=== PATIENT | female | born 1960 | race Caucasian/White ===

== ENCOUNTER 2017-03-23 09:33 | Observation (INO) | payer BC ==
[2017-03-23 10:44] LABS: #Eosinphils 0.1 thou/uL (0.0-0.7); #Lymphocytes 1.4 thou/uL (1.20-3.40); #Monocytes 0.4 thou/uL (0.11-0.59); #Neutrophils 6.4 thou/uL (1.40-6.50); %Basophils 0.6 % (0.0-1.0); %Eosinophils 1.2 % (0.0-10.0); %Lymphocytes 16.7 % (21.0-51.0); %Monocytes 5.1 % (0.0-10.0); %Neutrophils 76.5 % (42.0-75.0); Hemoglobin 12.1 g/dL (12.0-16.0); Mean Corpuscular HGB CONC 33.4 g/dL (32.0-36.0); Mean Platelet Volume 8.4 fL (7.4-10.4); Platelet Count 265 thou/uL (130-400); RBC Distribution Width 13.1 % (11.5-14.5); Red Blood Cell (RBC) Count 3.91 mill/uL (4.20-5.40); White Blood Cell (WBC) Count 8.3 thou/uL (4.8-10.8)
--- NOTE | 2017-03-23 10:45 | RAD ---
CHEST 1 VIEW: HISTORY: Near syncope. COMPARISON: Chest 2 views 11/03/16. FINDINGS: A dual-lead AICD/pacer is present. Heart size is similar. No focal airspace consolidation, pneumoth orax, or effusion. No acute osseous abnormality. There is calcific tendinosis of both rotator cuffs. IMPRESSION: 1. No acute intrathoracic abnormality. 2. Calcific tendinosis of both rotator cuffs. POS: TPC
[2017-03-23 11:14] LABS: CKMB 0.4 ng/mL (0-6.6); Troponin I 0.019 ng/mL (< 0.028)
[2017-03-23 11:40] LABS: ALT (SGPT) 22 U/L (8-55); AST (SGOT) 17 U/L (5-34); Albumin 4.3 g/dL (3.5-5.0); Alkaline Phosphatase 84 U/L (40-150); Anion Gap 14 mmol/L (10-20); BUN (Urea Nitrogen) 37 mg/dL (9.8-20.1); Bilirubin, Total 0.6 mg/dL (0.2-1.2); CK (CPK) 48 U/L (29-168); Calc. Creatinine Clearance 0 mL/min (70-130); Carbon Dioxide 28 mmol/L (22-29); Chloride 102 mmol/L (98-107); Estimated GFR-MDRD 26; Glucose 129 mg/dL (70-105); Lipase 20 U/L (8-78); Potassium 4.2 mmol/L (3.5-5.1); Protein, Total 7.3 g/dL (6.0-8.3); Sodium 140 mmol/L (136-145)
[2017-03-23] MEDS ORDERED: Aspirin 325 MG TAB ONE (13:10)
[2017-03-23 14:40] LABS: Troponin I 0.011 ng/mL (< 0.028)
--- NOTE | 2017-03-23 15:22 | PDOC.EVN ---
Attending Addendum - Attending Addendum I personally evaluated the patient and discussed the management with Dr. Cobb. I agree with the History, Examination, Assessment and Plan documented in her H& P with any addition or exceptions noted below. Patient with history of CHF due to nonischemic cardiomyopathy, CKD, HTN, HLD, and AICD placement here with pre-syncope type symptoms. She was recently diagnosed with Influenza and is undergoing treatment. On Wednesday, she had episode of dizziness, lightheaded, and weakness after position changes. Today, while seated, she had episode of flushing, sweating, lightheadedness, and pre- syncope symptoms. She endorses poor appetite related to influenza, as well as chronic diarrhea felt due to Metformin. She has recently had increase in her diuretic therapy. On exam, she appears dry. She has vertigo with lateral gaze, but CN II-XII are intact, and there are no focal motor or sensory deficits. No clonus, and FTN testing is normal, though slowed. The rest of her exam is benign. Laboratory studies suggest an AURELIO on her mild CKD, and labs are otherwise normal. She will be obs to telemetry, begin gentle fluid hydration and ensure she does not become volume overloaded. Will check orthostatics. Tele to ensure she is not having irregular rhythms. No focal neuro findings to suggest CVA as cause of her symptoms, but will ensure that her lateral gaze vertigo resolves with fluids. Will check lactoferrin to classify cause of diarrhea, hold metformin for now.
[2017-03-23 17:50] LABS: Troponin I 0.013 ng/mL (< 0.028)
[2017-03-23] MEDS ORDERED: Dextrose 50% Abboject 50 ML SYRINGE SLOW IVP PRN (18:53)
[2017-03-23] MEDS ORDERED: Ondansetron ODT 4 MG TAB PO PRN (18:53)
[2017-03-23] MEDS ORDERED: Dextrose 5% in Water 1,000 ML IV PRN (18:53)
[2017-03-23] MEDS ORDERED: Sodium Chloride 0.9% 1,000 ML IV SCH (19:00)
[2017-03-23 19:02] VITALS: BMI 32.8
--- NOTE | 2017-03-23 19:57 | HP-2 ---
DATE OF ADMISSION: 03/23/2017 CODE STATUS: FULL. PRIMARY CARE PHYSICIAN: Dr. Gottlieb. ATTENDING: Dr. Rey. RESIDENT: Dr. Cobb. SPECIALISTS: Dr. Wooten with Cardiology. CHIEF COMPLAINT: Dizziness and lightheadedness. 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 She reports that her legs were feeling wobbly and she had a little pressure in her chest and her throat was feeli ng squeezed. She also reports some numbness in her upper lip. She felt foggy throughout this whole time and reports that she felt incoherent. She also reports some dizziness that she is still feeling at this time as well as decreased energy. She had the flu recently and has been treated with Tamifl u. She has 1 pill of her Tamiflu left. She reports that she has been drinking plenty of fluids, but has had a decreased appetite. She was seen by Dr. Wooten, her secondary art teacher yesterday and he incre ased her Lasix by 1 pill. She also reports that she has had diarrhea for the last couple of months. She notes that on Wednesday, she had an episode of presyncope where she got up from bed and fell to the floor because she got really dizzy, but never actually passed out. In the ER, she was given 1 liter normal saline. PAST MEDICAL HISTORY: 1. Congestive heart failure with an ejection fraction of 40% to 45% in 01/2016. 2. Diabetes, type 2. 3. TRENT. 4. Anxiety. 5. Hyperlipidemia. 6. Hypertension. PAST SURGICAL HISTORY: AICD placement 5 years ago. ALLERGIES: CIPRO, CECLOR and CODEINE. MEDICATIONS: 1. Atorvastatin 80 mg daily. 2. Buspirone 10 mg b.i.d. 3. Carvedilol 12.5 mg b.i.d. 4. Lasix 40 mg daily, was recently increased likely to 60 mg daily, but unsure exactly what dose. 5. Entresto 49 mg/51 mg b.i.d. 6. Spironolactone 25 mg daily. 7. Symbicort 160/4.5 b.i.d. 8. Metformin 500 mg b.i.d. FAMILY HISTORY: Aunt had breast cancer and dad had CHF. SOCIAL HISTORY: Smoked 2-1/2 packs per day for 13 years, quit 31 years ago. Drinks one glass of win e per day, but lately has only been drinking about 2 glasses of wine per week due to being sick. Den ies any drug use. REVIEW OF SYSTEMS: General: Positive for fever over last week with the flu. Positive for decreased appetite. Positive for fatigue. Respiratory: Positive for cough, congestion, shortness of breath. Cardiovascular: Positive for chest pressure. Negative for edema. Gastrointestinal: Positive for nausea and diarrhea, negative for vomiting and GI bleeding. Genitourinary: Negative for dysuria, p olyuria. Skin: Negative for rashes, lesions. Musculoskeletal: Negative for pain or tenderness. N eurologic: Positive for weakness, numbness, presyncope. Negative for syncope. PHYSICAL EXAMINATION: VITAL SIGNS: Blood pressure 107/62, pulse 67, respiratory rate 18, temperature 97.7, pulse ox 98% on room air. Current weight 99.79 kilograms. GENERAL: Alert and oriented x3, in no acute distress, well-nourished, appropriately interactive. EYES: PERRLA. Extraocular muscles are intact. Bilateral horizontal nystagmus. Conjunctivae within normal limits. ENT: Nasal mucosa and oropharynx within normal limits. NECK: Supple, no lymphadenopathy. CARDIOVASCULAR: Regular rate and rhythm. No murmurs, gallops, 2+ radial and pedal pulses. RESPIRATORY: Normal effort, no retractions, clear to auscultation bilaterally. SKIN: Warm, dry. No cyanosis or lesions. ABDOMEN: Soft, tender to palpation in the right upper quadrant. Normoactive bowel sounds. No mass or distention. EXTREMITIES: No cyanosis or edema. MUSCULOSKELETAL: Structure and tone within normal limits, 5/5 muscle strength. Full range of motion . NEUROLOGICAL: No focal deficits. Sensation within normal limits. GCS 15. PSYCHIATRIC: Appropriate. LABORATORY DATA: WBC 8.3, hemoglobin 12.1, hematocrit 36.4, platelets 265. Sodium 140, potassium 4. 2, chloride 102, CO2 of 28, BUN 37, creatinine 2.01, GFR 26, glucose 129, calcium 10.0, total bilirub in 0.6, alkaline phosphatase 84, AST 17, ALT 22, lipase 20. BNP 33, CK-MB 0.4, CK 48, troponin 0.019 . EKG, normal sinus rhythm. Chest x-ray, no acute abnormalities. ASSESSMENT AND PLAN: This is a 57-year-old female, who presents with: 1. Presyncope. Differential diagnosis moderate to severe dehydration versus benign positional verti go. The patient has acute kidney injury and has recently had decreased appetite and been infected wi th the flu as well as had her Lasix dose increase, which makes a case for dehydration as number 1 cau se; however, the patient also has bilateral horizontal nystagmus causes dizziness. We will check ort hostatic vitals, NS at 150. The patient is status post 1 liter normal saline during his exam and ree valuate the patient after getting fluids. 2. Acute kidney injury on chronic kidney disease, 2. The patient has significant change from baseli ne, likely secondary to dehydration from decreased fluid intake and increased Lasix. We will treat w ith NS at 150 and make sure not to fluid overload her. We will decrease Lasix back to her regular do se and hold metformin at this time. 3. Congestive heart failure with ejection fraction of 40% to 45%. The patient appeared volume down, we will keep fluids, but watch her closely for fluid overload. We will decrease her Lasix for the d ay, likely reincrease that tomorrow or the next day. We will monitor daily weights, strict I's and O 's. Continue spironolactone and other home medications. We will consult Dr. Wooten and appreciate his recommendations. 4. Diabetes, type 2. We will hold metformin. Accu-Cheks a.c. and at bedtime. Consistent carbohydr ate diet. We will add sliding scale insulin if needed. 5. Hypertension. Continue home medications. 6. Hyperlipidemia. Continue home medications. 7. Anxiety. Continue home medications 8. Venous thromboembolism prophylaxis, sequential compression devices. DISPOSITION AND LENGTH OF HOSPITAL STAY: Obs on tele, likely less than 2 days. Symptomatic medications will be provided. History and physical exam as well as management discussed with Dr. Rey.
[2017-03-23] MEDS: Carvedilol 6.25 MG TAB PO SCH (20:08)
[2017-03-23] MEDS: busPIRone HCl 10 MG TAB PO SCH (20:08)
[2017-03-23] MEDS: Sacubitril 49 MG/Valsartan 51 MG TABLET PO SCH (20:09)
[2017-03-23] MEDS: Atorvastatin Calcium 40 MG TAB PO SCH (20:13)
[2017-03-23] MEDS ORDERED: Oseltamivir 75 MG CAP PO SCH (21:00)
[2017-03-23] MEDS: Melatonin 3 MG TAB PO PRN (21:38)
[2017-03-23] MEDS: Sodium Chloride 0.9% 1,000 ML IV SCH (21:39)
[2017-03-24] MEDS: Sodium Chloride 0.9% 1,000 ML IV SCH ×3 (04:20→21:37)
[2017-03-24 06:22] LABS: Anion Gap 13 mmol/L (10-20); BUN (Urea Nitrogen) 25 mg/dL (9.8-20.1); Calc. Creatinine Clearance 72 mL/min (70-130); Carbon Dioxide 26 mmol/L (22-29); Chloride 106 mmol/L (98-107); Estimated GFR-MDRD 44; Glucose 117 mg/dL (70-105); Potassium 3.8 mmol/L (3.5-5.1); Sodium 141 mmol/L (136-145)
--- NOTE | 2017-03-24 08:36 | PDOC.FM ---
- Subjective Subjective: Patient doing well this AM. No significant overnight events. She reports only mildly dizziness upon standing, but most of the symptoms present on admission have resolved. She denies any chest pain, shortness of breath, headache, or vision changes. Telemetry strip showed atrial paced rhythm with few PVCs. She states that the dizziness is more lightheadedness and denies a feeling of room spinning/person spinning. Her BP normally runs systolics mid 100's. - Objective MAR Reviewed: Yes Vital Signs & Weight: Vital Signs (12 hours) Temp Pulse Resp BP BP Pulse Ox 03/24/17 07:20 98.4 F 71 20 03/24/17 04:17 98.4 F 71 20 97/53 L 96 03/23/17 23:29 71 15 92/52 L 93 L Weight Weight 92.351 kg I&O: 03/23/17 03/24/17 03/25/17 06:59 06:59 06:59 Intake Total 1240 Balance 1240 Result Diagrams: 03/23/17 10:38 03/24/17 04:50 EKG Reviewed by me: Yes Radiology Reviewed by me: Yes <Radha Waterman - Last Filed: 03/24/17 08:47> - Objective Vital Signs & Weight: Vital Signs (12 hours) Temp Pulse Resp BP BP BP BP 03/24/17 11:39 97/54 L 91/54 L 110/53 L 03/24/17 09:59 109/51 L 03/24/17 07:35 97.8 F 70 16 109/51 L 03/24/17 07:20 98.4 F 71 20 03/24/17 04:17 98.4 F 71 20 97/53 L Pulse Ox 03/24/17 11:39 03/24/17 09:59 03/24/17 07:35 94 L 03/24/17 07:20 03/24/17 04:17 96 Weight Weight 92.351 kg I&O: 03/23/17 03/24/17 03/25/17 06:59 06:59 06:59 Intake Total 1240 300 Balance 1240 300 Result Diagrams: 03/23/17 10:38 03/24/17 04:50 <Elliott Rey - Last Filed: 03/24/17 12:03> Phys Exam - Physical Examination Constitutional: NAD HEENT: moist MMs Neck: supple Respiratory: no wheezing, no rales, no rhonchi, clear to auscultation bilateral Few skipped beats. Regular rate. Gastrointestinal: soft, non-tender, no distention, positive bowel sounds Musculoskeletal: no edema Neurological: moves all 4 limbs Unable to do horizontal gaze to left. Nystagmus with horizontal gaze to R. Psychiatric: A&O x 3 <Radha Waterman - Last Filed: 03/24/17 08:47> Dx/Plan (1) Pre-syncope Status: Acute (2) AURELIO (acute kidney injury) Code(s): N17.9 - ACUTE KIDNEY FAILURE, UNSPECIFIED Status: Acute (3) Influenza Code(s): J11.1 - FLU DUE TO UNIDENTIFIED INFLUENZA VIRUS W OTH RESP MANIFEST Status: Acute (4) CHF (congestive heart failure) Code(s): I50.9 - HEART FAILURE, UNSPECIFIED Status: Chronic (5) Diabetes mellitus, type II Status: Chronic (6) TRENT (obstructive sleep apnea) Code(s): G47.33 - OBSTRUCTIVE SLEEP APNEA (ADULT) (PEDIATRIC) Status: Chronic (7) Anxiety Code(s): F41.9 - ANXIETY DISORDER, UNSPECIFIED Status: Chronic - Plan Plan: 1. Presnycope - EKG shows atrial paced rhythm - Recent history of influenza s/p treatment, increase in lasix dose 2 days ago, and diarrhea - Likely 2/2 fluid losses - Curbside consulted Dr. Wooten who is aware patient is in hospital. Agreed with decreased lasix dose - AICD interrogation, although not likely cause of presyncope - Orthostatics normal - May be 2/2 vestibular system; nystagmus on exam - Recommend PT eval for gait stability - Monitor BP 2. AURELIO - Improved - Mild fluid resuscitation s/p 1L bolus and 150 ml/hr x1 bag - Cr 1.26 this AM 3. Influenza - s/p treatment with tamiflu 4. CHF s/p AICD - Saw Dr. Wooten 2 days ago. Increased dose of lasix at that time - Decreased dose of lasix during hospitalization; informed Dr. Wooten of changes - Consider AICD interrogation for potential causes of presyncope; should not be cause unless shock was administered 5. DM Type II - Hyperglycemia protocol with MSSI - Hold metformin 2/2 diarrhea - Accuchecks ACHS 6. TRENT - Not currently on CPAP 7. Anxiety - Appears well controlled - Continue home medications Dispo: Further investigate nystagmus and vestibular causes of vertigo/ lightheadedness. <Radha Waterman - Last Filed: 03/24/17 08:47> Attending Addendum - Attending Addendum I personally evaluated the patient and discussed the management with Dr. Waterman. I agree with the History, Examination, Assessment and Plan documented above with any addition or exceptions noted below. Patient continues to have some dizziness type symptoms, though improved. She continues to have these symptoms that are especially worsened with lateral gaze R or L. Continue fluids. Will perform HINTS testing and consider Neuro input if abnormal as currently unsure if symptoms are more central or peripheral in nature, though vestibular neuritis or a labyrinthitis would not be out of the question given her recent URI. <Elliott Rey - Last Filed: 03/24/17 12:03>
[2017-03-24] MEDS: Sacubitril 49 MG/Valsartan 51 MG TABLET PO SCH ×2 (09:59→20:45)
[2017-03-24] MEDS: busPIRone HCl 10 MG TAB PO SCH ×2 (09:59→20:46)
[2017-03-24] MEDS: Spironolactone 25 MG TAB PO SCH (09:59)
[2017-03-24] MEDS: Carvedilol 6.25 MG TAB PO SCH ×2 (09:59→20:46)
[2017-03-24] MEDS: Furosemide 40 MG TAB PO SCH (09:59)
[2017-03-24] MEDS ORDERED: Meclizine HCl 12.5 MG TAB PO PRN (13:48)
[2017-03-24] MEDS ORDERED: Sodium Chloride 0.9% 1,000 ML IV SCH (19:30)
[2017-03-24] MEDS: Atorvastatin Calcium 40 MG TAB PO SCH (20:46)
[2017-03-24] MEDS: Melatonin 3 MG TAB PO PRN (20:49)
[2017-03-25] MEDS: Sodium Chloride 0.9% 1,000 ML IV SCH (05:51)
--- NOTE | 2017-03-25 06:01 | CON ---
DATE OF CONSULTATION: 03/24/2017 REASON FOR CONSULTATION: Dizziness and nystagmus. REFERRING PROVIDER: Radha Waterman D.O. HISTORY OF PRESENT ILLNESS: Ms. Whyte is a pleasant 57-year-old female who has been consulted for evaluation of dizziness and nystagmus. History is obtained from the patient as well as her medical records. Apparently , the patient reports that on Wednesday, she started noticing having episodes of dizziness and vertigo type sensation. She noticed that changing position of her head would cause her to be dizzy and off balance. This episode happened once or twice on Wednesday, she was doing well until Wednesday. While she was at work in the meeting, she suddenly started feeling flushed, diaphoretic, and felt like she was going to pass out. This prompted her to present to the [facility]. She reports that on arrival here, she has had episodes where she feels dizziness and vertigo-type sensation. She notes that when she changes her position of the head, she gets very dizzy. She notes that she did have a flu last week from which she is getting over with. She also had been given Lasix recently, which she has not increased the dose as recorded by her dredge engineer. She states that she did not have any headache, diplopia, blurry vision, ptosis, dysarthria or dysphagia, numbness, tingling or weakness. PAST MEDICAL HISTORY: Significant for hypertension, type 2 diabetes, congestive heart failure, obstructive sleep apnea, anxiety, and hyperlipidemia. PAST SURGICAL HISTORY: Significant for AICD placement 5 years ago. CURRENT MEDICATIONS: Please review MAR. ALLERGIES: Include CIPRO, CECLOR and CODEINE. FAMILY HISTORY: Significant for father with CHF. SOCIAL HISTORY: She smokes 2-1/2 packs per day. She did quit smoking 13 years ago. She drinks one glass of wine on a daily basis. She denies illicit drug use. REVIEW OF SYSTEMS: As mentioned in the HPI, otherwise negative. PHYSICAL EXAMINATION: VITAL SIGNS: Blood pressure of 105/61, pulse of 76, temperature of 98.2, respirations of 16, O2 sats of 94% on room air. GENERAL: Well-developed, well-nourished female in no apparent distress. RESPIRATORY: Clear to auscultation bilaterally. CARDIOVASCULAR: Regular rate and rhythm. NEUROLOGIC: Mental status: The patient is awake, alert, oriented x3. Speech and language: Fluent speech. Cranial nerves: Pupils are 3 mm and reactive. Visual hua are intact. External muscles are intact. No nystagmus is noted. Face appears symmetric. Tongue and uvula are midline. Motor exam showed normal tone and bulk with 5/5 strength in both upper and lower extremities. Sensory: Sensation is intact and symmetric. Deep tendon reflexes, 1+ reflexes in both upper and lower extremities. Babinski: Plantar responses flexion bilaterally. Coordination intact to [id number], finger tapping bilaterally. LABORATORY DATA: Reviewed, which included CBC, CMP, troponin, CK-MB, BNP and lipase, which significant for BUN of 37, creatinine of 2.01 on admission, today the BUN is 25, creatinine of 1.26. IMAGING STUDIES: None. IMPRESSION: 1. Benign positional vertigo. 2. Dehydration. 3. Acute kidney injury, improved. Ms. Whyte is a pleasant 57-year-old female who presented with the episodes of dizziness and vertigo type sensation. Based on the description of her spells these are likely benign positional vertigo. This may have been precipitated by recent flu as well as dehydration. At this time, I will recommend continuing supportive care. If she continues to have dizziness or vertigo type sensation, then she may benefit from meclizine 25 mg q.8 hours p.r.n. along with Dizzy and Balance therapy as an outpatient. Thank you for consultation. NICOLAS
[2017-03-25 06:26] LABS: Anion Gap 11 mmol/L (10-20); BUN (Urea Nitrogen) 14 mg/dL (9.8-20.1); Calc. Creatinine Clearance 107 mL/min (70-130); Calcium 8.3 mg/dL (7.8-10.44); Carbon Dioxide 25 mmol/L (22-29); Chloride 109 mmol/L (98-107); Estimated GFR-MDRD 71; Glucose 118 mg/dL (70-105); Potassium 3.6 mmol/L (3.5-5.1); Sodium 141 mmol/L (136-145)
[2017-03-25 08:18] VITALS: BP 118/59
--- NOTE | 2017-03-25 08:42 | PDOC.FM ---
- Subjective Subjective: Patient doing well this AM. No significant overnight events. Patient still endorses vertigo, particularly when moving head or looking to the left/right. However, it does seem to be improved. She did not end up taking meclizine yesterday. Patient reports that she is otherwise feeling fine. - Objective MAR Reviewed: Yes Vital Signs & Weight: Vital Signs (12 hours) Temp Pulse Resp BP Pulse Ox 03/25/17 08:16 97.4 F L 65 16 118/59 L 96 03/25/17 04:00 98.6 F 68 20 122/55 L 94 L 03/24/17 23:52 61 20 93/51 L 96 Weight Admit Weight 92.351 kg Weight 90.446 kg I&O: 03/24/17 03/25/17 03/26/17 06:59 06:59 06:59 Intake Total 1240 2853 Balance 1240 2853 Result Diagrams: 03/23/17 10:38 03/25/17 04:50 EKG Reviewed by me: Yes Radiology Reviewed by me: No <Radha Waterman - Last Filed: 03/25/17 08:40> - Objective Vital Signs & Weight: Vital Signs (12 hours) Temp Pulse Resp BP Pulse Ox 03/25/17 10:57 67 03/25/17 08:16 97.4 F L 65 16 118/59 L 96 03/25/17 08:00 97.4 F L 67 16 03/25/17 04:00 98.6 F 68 20 122/55 L 94 L 03/24/17 23:52 61 20 93/51 L 96 Weight Admit Weight 92.351 kg Weight 90.446 kg I&O: 03/24/17 03/25/17 03/26/17 06:59 06:59 06:59 Intake Total 1240 2853 Balance 1240 2853 Result Diagrams: 03/23/17 10:38 03/25/17 04:50 <Elliott Rey - Last Filed: 03/25/17 11:06> Phys Exam - Physical Examination Constitutional: NAD HEENT: moist MMs Neck: supple Respiratory: no wheezing, no rales, no rhonchi, clear to auscultation bilateral Cardiovascular: RRR, no significant murmur Gastrointestinal: soft, positive bowel sounds Musculoskeletal: no edema Neurological: non-focal, moves all 4 limbs Difficulty with horizontal gaze due to vertigo Psychiatric: normal affect, A&O x 3 Skin: no rash, cap refill <2 seconds <Radha Waterman - Last Filed: 03/25/17 08:40> Dx/Plan (1) Pre-syncope Status: Acute (2) AURELIO (acute kidney injury) Code(s): N17.9 - ACUTE KIDNEY FAILURE, UNSPECIFIED Status: Acute (3) Influenza Code(s): J11.1 - FLU DUE TO UNIDENTIFIED INFLUENZA VIRUS W OTH RESP MANIFEST Status: Acute (4) CHF (congestive heart failure) Code(s): I50.9 - HEART FAILURE, UNSPECIFIED Status: Chronic (5) Diabetes mellitus, type II Status: Chronic (6) TRENT (obstructive sleep apnea) Code(s): G47.33 - OBSTRUCTIVE SLEEP APNEA (ADULT) (PEDIATRIC) Status: Chronic (7) Anxiety Code(s): F41.9 - ANXIETY DISORDER, UNSPECIFIED Status: Chronic - Plan Plan: 1. Presnycope - EKG shows atrial paced rhythm - Recent history of influenza s/p treatment, increase in lasix dose 2 days ago, and diarrhea - Curbside consulted Dr. Wooten who is aware patient is in hospital. Agreed with decreased lasix dose - AICD interrogation was normal - Orthostatics normal - May be 2/2 vestibular system given recent URI - PT d/c'd to walking program - Monitor BP - Neurology consulted; appreciate recs - BPP per Neuro; recommend meclizine 25 mg q8h PRN and potential PT - Follow up outpatient with neurology if symptoms persist 2. AURELIO - Improved - Cr 0.083 this AM 3. Influenza - s/p treatment with tamiflu 4. CHF s/p AICD - Saw Dr. Wooten 2 days ago. Increased dose of lasix at that time - Decreased dose of lasix during hospitalization; informed Dr. Wooten of changes - Consider AICD interrogation for potential causes of presyncope; should not be cause unless shock was administered 5. DM Type II - Hyperglycemia protocol with MSSI - Hold metformin 2/2 diarrhea, can restart with PCP as outpatient - Accuchecks ACHS 6. TRENT - Not currently on CPAP 7. Anxiety - Appears well controlled - Continue home medications 8. Benign paroxysmal positional vertigo - Neuro recommends meclizine 25 mg q8h PRN and possible PT - Can follow up with neurology as outpatient if symptoms persist Dispo: Stable. Home today. <Radha Waterman - Last Filed: 03/25/17 08:40> Attending Addendum - Attending Addendum I personally evaluated the patient and discussed the management with Dr. Waterman. I agree with the History, Examination, Assessment and Plan documented above with any addition or exceptions noted below. Patient feeling well. Neuro believes her vertigo is related to BPPV and we have started meclizine therapy. She is stable for discharge home today. <Elliott Rey - Last Filed: 03/25/17 11:06>
[2017-03-25] MEDS: Carvedilol 6.25 MG TAB PO SCH (09:08)
[2017-03-25] MEDS: Spironolactone 25 MG TAB PO SCH (09:08)
[2017-03-25] MEDS: Sacubitril 49 MG/Valsartan 51 MG TABLET PO SCH (09:08)
[2017-03-25] MEDS: Furosemide 40 MG TAB PO SCH (09:09)
[2017-03-25] MEDS: busPIRone HCl 10 MG TAB PO SCH (09:09)
[2017-03-25 10:59] VITALS: TEMP 97.4
--- NOTE | 2017-03-26 15:34 | DIS-2 ---
DATE OF ADMISSION: 03/23/2017 DATE OF DISCHARGE: 03/25/2017 RESIDENT: Dr. Radha Waterman. ADMITTING ATTENDING: Dr. Elliott Rey. DISCHARGE ATTENDING: Dr. Elliott Rey. CONSULTS: Neurology, Dr. Suzanna Hargrove. PROCEDURES: Chest x-ray, no acute intrathoracic abnormality. There were some calcific tendinosis at both rotator cuffs. PRIMARY DIAGNOSES: 1. Benign positional vertigo. 2. Dehydration. 3. Acute kidney injury, improved. SECONDARY DIAGNOSES: 1. Hypertension. 2. Type 2 diabetes mellitus. 3. Congestive heart failure. 4. Obstructive sleep apnea. 5. Anxiety. 6. Hyperlipidemia. DISCHARGE MEDICATIONS: 1. Meclizine 25 mg TID as needed. 2. Carvedilol 12.5 mg oral twice daily. 3. Spironolactone 25 mg oral daily. 4. Atorvastatin calcium 80 mg oral daily. 5. Buspirone 10 mg oral twice daily. 6. Entresto 49 mg-51 mg tablet 1 each oral twice daily. 7. Furosemide 40 mg oral twice daily. 8. Metformin 500 mg oral twice daily. 9. Symbicort 160/4.5 one puff inhalation twice daily. DISCONTINUED MEDICATIONS: None. HISTORY OF PRESENT ILLNESS AND HOSPITAL COURSE: This is a 57-year-old female with past medical history of congestive heart failure due to nonischemic cardiomyopathy, chronic kidney disease, hypertension, hyperlipidemia, and AICD placement here with presyncopal type symptoms. She has recently been diagnosed with flu and undergoing treatment. On Wednesday, she had an episode of dizziness, lightheadedness and weakness after position changes. Today, while seated, she had an episode of flushing, sweating, lightheadedness with presyncope symptoms. She did endorse poor appetite related to influenza as well as chronic diarrhea felt to be due to metformin. She has recently had increase since her diuretic therapy approximately 3 days ago, whereby Dr. Wooten doubled her Lasix dose. On examination, she did initially appear dry. She had vertigo with lateral gaze, but cranial nerves II-XII are intact and there were no focal motor or sensory deficits. There is no clonus. The rest of exam was benign. Laboratory studies suggest AURELIO and a mild CKD. Her labs are otherwise normal. The patient was admitted to telemetry for observation and gentle fluid hydration due to her congestive heart failure. The goal is to not to get her fluid overloaded. It was presumed that patient's symptoms were likely secondary to dehydration due to recent flu-like illness, poor appetite and rather chronic diarrhea. Orthostatics were negative. She was placed on telemetry to ensure there is no irregular heart rhythm causing her presyncope type symptoms and no neuro findings to suggest the CVA as a cause of her symptoms. Lactoferrin was checked due to her diarrhea, which was negative. The metformin was held as a potential cause of the chronic diarrhea as well. Neurology was consulted as a HINTS exam was performed and was found to be abnormal. The patient was diagnosed with benign positional vertigo by neurology. Neurology was not concerned for a posterior cerebellar infarct and recommended that the patient be started on meclizine 25 mg TID for BPPV and consider PT outpatient. The above findings were discussed with the patient and she was on board with trying the Meclizine as well as outpatient physical therapy if her symptoms persist to assure resolution and improvement in her symptoms. If her symptoms do persist, outpatient PT may be beneficial. Additionally, she might benefit from Evette's maneuver. The patient was understanding of the necessity for close followup. DISPOSITION: Stable. DISCHARGE INSTRUCTIONS: 1. Location: Home. 2. Diet: Consistent carbohydrate and heart healthy. 3. Activity: As tolerated 4. Followup: The patient is to follow up within 7 days of discharge her primary care physician, to ensure resolution/improvement in her symptoms. [facility]
--- NOTE | 2017-03-27 12:00 | EKG ---
Test Reason : Blood Pressure : / mmHG Vent. Rate : 071 BPM Atrial Rate : 071 BPM P-R Int : 194 ms QRS Dur : 100 ms QT Int : 434 ms P-R-T Axes : 038 -15 040 degrees QTc Int : 471 ms Normal sinus rhythm Low voltage QRS Borderline ECG Confirmed by SELWYN WHITT, NIKITA ([id number]), avid editor IMMANUEL DAY ([id number]) on 03/27/2017 11:59:58 AM Referred By: Confirmed By:NIKITA SAMANO MD
== END 2017-03-25 11:48 | disposition home or self-care (01) ==
LOC: ERS 09:33 → ERHOLD 12:40 → 2SW 18:41
PROVIDERS: ADMIT Student in an Organized Health Care Education/Training Program; ATTEND Student in an Organized Health Care Education/Training Program
DX: H81.10 Benign paroxysmal vertigo, unspecified ear (principal); E86.0 Dehydration; F41.9 Anxiety disorder, unspecified; G47.33 Obstructive sleep apnea (adult) (pediatric); I13.0 Hypertensive heart and chronic kidney disease with heart failure and stage 1 through stage 4 chronic kidney disease, or unspecified chronic kidney disease; E11.22 Type 2 diabetes mellitus with diabetic chronic kidney disease; N18.9 Chronic kidney disease, unspecified; I50.9 Heart failure, unspecified; N17.9 Acute kidney failure, unspecified; E78.5 Hyperlipidemia, unspecified; I42.8 Other cardiomyopathies; J11.1 Influenza due to unidentified influenza virus with other respiratory manifestations; Z87.891 Personal history of nicotine dependence; Z79.84 Long term (current) use of oral hypoglycemic drugs; Z79.51 Long term (current) use of inhaled steroids; Z79.899 Other long term (current) drug therapy; Z88.8 Allergy status to other drugs, medicaments and biological substances; Z88.1 Allergy status to other antibiotic agents; Z88.5 Allergy status to narcotic agent; Z95.810 Presence of automatic (implantable) cardiac defibrillator
CPT/HCPCS: 36415; 36416; 71045; 80048; 80053; 82550; 82553; 83630; 83690; 83880; 84484; 85025; 93005; 96360; 96361; A4216; G0378; G8978-GP-CK; G8979-GP-CK; G8980-GP-CK

== ENCOUNTER 2017-04-01 13:59 | Observation (INO) | payer BC ==
[2017-04-01 14:26] LABS: #Basophils 0.1 thou/uL (0.0-0.2); #Eosinphils 0.2 thou/uL (0.0-0.7); #Monocytes 0.8 thou/uL (0.11-0.59); #Neutrophils 10.4 thou/uL (1.40-6.50); %Basophils 0.5 % (0.0-1.0); %Eosinophils 1.7 % (0.0-10.0); %Lymphocytes 14.8 % (21.0-51.0); %Neutrophils 76.9 % (42.0-75.0); Hemoglobin 12.5 g/dL (12.0-16.0); Mean Corpuscular HGB CONC 32.9 g/dL (32.0-36.0); Mean Corpuscular Hemoglobin 30.7 pg (27.0-31.0); Mean Corpuscular Volume 93.3 fl (81.0-99.0); Mean Platelet Volume 8.9 fL (7.4-10.4); Platelet Count 357 thou/uL (130-400); RBC Distribution Width 12.8 % (11.5-14.5); Red Blood Cell (RBC) Count 4.06 mill/uL (4.20-5.40); White Blood Cell (WBC) Count 13.5 thou/uL (4.8-10.8)
[2017-04-01 14:49] LABS: ALT (SGPT) 16 U/L (8-55); AST (SGOT) 12 U/L (5-34); Albumin 4.4 g/dL (3.5-5.0); Alkaline Phosphatase 101 U/L (40-150); Anion Gap 15 mmol/L (10-20); BUN (Urea Nitrogen) 35 mg/dL (9.8-20.1); Bilirubin, Total 0.6 mg/dL (0.2-1.2); CK (CPK) 41 U/L (29-168); Calc. Creatinine Clearance 0 mL/min (70-130); Calcium 10.2 mg/dL (7.8-10.44); Carbon Dioxide 27 mmol/L (22-29); Chloride 103 mmol/L (98-107); Estimated GFR-MDRD 37; Globulin 3.2 g/dL (2.4-3.5); Glucose 126 mg/dL (70-105); Potassium 4.4 mmol/L (3.5-5.1); Protein, Total 7.6 g/dL (6.0-8.3); Sodium 141 mmol/L (136-145)
[2017-04-01 14:54] LABS: CKMB 0.5 ng/mL (0-6.6); Troponin I Less than 0.010 ng/mL (< 0.028)
--- NOTE | 2017-04-01 15:18 | RAD ---
PORTABLE CHEST: Date: 04/01/17 Time: 1431 hours HISTORY: Chest pain. FINDINGS: Comparison made with exam of 03/23/17. The heart size is enlarged. Left-sided AICD remains in place. Lungs are well expanded without conflue nt areas of consolidation, pneumothorax, josie pulmonary edema, or pleural effusions. IMPRESSION: No acute process. POS: [facility]
[2017-04-01] MEDS ORDERED: Acetaminophen 500 MG TAB ONE (16:00)
[2017-04-01] MEDS ORDERED: Acetaminophen 325 MG TAB PO PRN ×2 (17:07→17:19)
[2017-04-01] MEDS ORDERED: Ondansetron ODT 4 MG TAB PO PRN (17:07)
[2017-04-01] MEDS ORDERED: Ondansetron ODT 4 MG TAB SL PRN (17:19)
[2017-04-01] MEDS ORDERED: Sodium Chloride 0.9% 1,000 ML IV SCH (17:19)
[2017-04-01] MEDS ORDERED: Ondansetron HCl/PF 4 MG/2 ML Vial IVP PRN (17:19)
[2017-04-01 17:27] VITALS: BMI 32.8
[2017-04-01] MEDS ORDERED: Dextrose 50% Abboject 50 ML SYRINGE SLOW IVP PRN ×2 (17:30→21:15)
[2017-04-01] MEDS ORDERED: HumaLOG 300 UNITS/3 ML VIAL SC PRN ×2 (17:30→21:15)
[2017-04-01] MEDS ORDERED: Dextrose 5% in Water 1,000 ML IV PRN ×2 (17:30→21:15)
[2017-04-01] MEDS ORDERED: Meclizine HCl 25 MG TAB PO PRN (17:34)
[2017-04-01 17:59] LABS: Troponin I Less than 0.010 ng/mL (< 0.028)
[2017-04-01] MEDS: Sodium Chloride 0.9% 1,000 ML IV SCH (18:17)
[2017-04-01] MEDS ORDERED: Melatonin 3 MG TAB PO PRN (19:19)
[2017-04-01] MEDS: Mometasone/Formoterol 120 PUFF INHALER INH SCH (19:26)
[2017-04-01] MEDS: busPIRone HCl 10 MG TAB PO SCH (20:38)
[2017-04-01] MEDS: Sacubitril 49 MG/Valsartan 51 MG TABLET PO SCH (20:39)
[2017-04-01] MEDS ORDERED: Atorvastatin Calcium 40 MG TAB PO SCH (21:00)
[2017-04-01] MEDS ORDERED: Carvedilol 6.25 MG TAB PO SCH (21:00)
[2017-04-01 21:16] LABS: Troponin I Less than 0.010 ng/mL (< 0.028)
--- NOTE | 2017-04-02 03:54 | HP-2 ---
CODE STATUS: FULL. PRIMARY CARE PHYSICIAN: Radha Gottlieb DO ATTENDING PHYSICIAN: Bradley Roger MD RESIDENT: Zehra Nix DO HISTORIAN: Patient. SPECIALIST: Napoleon Wooten MD, Cardiology. CHIEF COMPLAINT: Shortness of breath and chest pain. HISTORY OF PRESENT ILLNESS: A 57-year-old female with past medical history of congestive heart failure, type 2 diabetes, hypertension, hyperlipidemia, and smoking history presents with chest pain from the clinic. About a week and half ago, the patient was hospitalized for a vertigo and dehydration after a flu -like illness. She reports since that time, she has been feeling generally weak and without energy. Due to this, she has been trying to get in with her technician semiconductor development, Dr. Wooten, but has not been able to, so went to PCP today. In office, she reported onset of muscle cramp-like chest pain that happened this morning and has not gone away. The pain does not radiate. Pain is not associated with nausea, vomiting, or diaphoresis. The pain is associated with shortness of breath. Since prior to her last admission, she has had poor appetite and a 20-pound weight loss. She reports no vomiting or diarrhea. No other recent illness. On her last admission, she was diagnosed with BPPV and sent home with meclizine. She has not yet picked that up, but does report her BPPV is improved, although not completely resolved. Also, the patient and the patient's reported that the patient has been getting low blood pressure readings at home such as 90s/60s. In the ER, she was given aspirin 324 mg, 500 mL bolus of normal saline, and Tylenol 1 gram. PAST MEDICAL HISTORY: 1. Congestive heart failure, last ejection fraction of 40%-45%. 2. Type 2 diabetes. 3. Anxiety. 4. Hyperlipidemia. 5. Hypertension. PAST SURGICAL HISTORY: AICD placement 5 years ago. ALLERGIES: CIPRO, CECLOR, and CODEINE. MEDICATIONS: 1. Meclizine 25 mg t.i.d. p.r.n. 2. Coreg 12.5 mg b.i.d. 3. Spironolactone 25 mg daily. 4. Atorvastatin 80 mg daily. 5. BuSpar 10 mg b.i.d. 6. Entresto 49/51 mg b.i.d. 7. Lasix 40 mg b.i.d. 8. Metformin 500 mg b.i.d. 9. Symbicort 160/4.5 mg 1 puff b.i.d. FAMILY HISTORY: Noncontributory. SOCIAL HISTORY: The patient recently quit smoking about 1 month ago after a 30- pack-year history. The patient admits to smoking 2-1/2 packs per day for 13 years. The patient is and lives at home with . REVIEW OF SYSTEMS: A 12-point review of systems was performed and found to be positive only for heat intolerance in addition those mentioned in the HPI. All other systems are negative. PHYSICAL EXAMINATION: VITAL SIGNS: Blood pressure 128/88, pulse 73, respiratory rate 18, T-max 97.4, pulse ox 96% on room air, weight 90.26 kilos. GENERAL: The patient is alert and oriented x4, in no acute distress. HEENT: Eyes, PERRLA. EOMI. Oropharynx within normal limits. NECK: Supple without lymphadenopathy or thyromegaly. CARDIOVASCULAR: Regular rate and rhythm. No murmurs. RESPIRATORY: Normal effort. No retractions. Clear to auscultation bilaterally. SKIN: Warm and dry. MUSCULOSKELETAL: Structure within normal limits. Tone within normal limits. NEUROLOGIC: GCS of 15. PSYCHIATRIC: Appropriate. LABORATORY DATA: CBC showed 13.5, 12.5, 37.9, and 367 with 26.4% neutrophils. BMP: Sodium 141, potassium 4.4, chloride 103, CO2 of 22, BUN 55, creatinine 1.46, glucose 126, calcium 10.2, total protein 7.6, albumin 4.4, AST 12, ALT 16 , alkaline phosphatase 101, total bilirubin 0.6 with a BNP of 26.8. EKG shows normal sinus rhythm with a left AICD in place. Chest x-ray: AICD in place. No acute findings. ASSESSMENT AND PLAN: 1. Acute kidney injury likely secondary to dehydration. We will give normal saline at 100 after receiving 500 mL bolus in ED. The patient's pressures have already normalized and she feels much better. We will check BMP in the morning. We will hold the Lasix for now. 2. Atypical chest pain with HEART score of 3. We will get a stress in the morning, trend the troponin, and consider cardiac consult for a possible echo. 3. Type 2 diabetes. We will hold metformin for now with decreasing kidney function. We will provide before meals and at bedtime Accu-Cheks and mild sliding scale insulin. 3. Hypotension. Orthostatics were performed and were found to be negative. The patient is usually well controlled on home medications. We will continue those in the hospital. 4. Congestive heart failure. We will consult Dr. Wooten as described above. 5. Anxiety. We will continue her home medications. 6. Hyperlipidemia. We will continue atorvastatin. DISPOSITION AND LENGTH OF HOSPITAL STAY: 2 days. Symptomatic meds will be provided. History and physical exam as well as management were discussed with Dr. Roger. NICOLAS
[2017-04-02] MEDS: Sodium Chloride 0.9% 1,000 ML IV SCH ×2 (03:59→16:09)
[2017-04-02 04:20] LABS: #Basophils 0.1 thou/uL (0.0-0.2); #Eosinphils 0.2 thou/uL (0.0-0.7); #Lymphocytes 1.9 thou/uL (1.20-3.40); #Monocytes 0.6 thou/uL (0.11-0.59); #Neutrophils 4.9 thou/uL (1.40-6.50); %Basophils 1.2 % (0.0-1.0); %Eosinophils 2.8 % (0.0-10.0); %Lymphocytes 24.9 % (21.0-51.0); %Monocytes 7.8 % (0.0-10.0); %Neutrophils 63.3 % (42.0-75.0); Mean Corpuscular HGB CONC 33.7 g/dL (32.0-36.0); Mean Corpuscular Hemoglobin 31.7 pg (27.0-31.0); Mean Corpuscular Volume 94.1 fl (81.0-99.0); Mean Platelet Volume 8.8 fL (7.4-10.4); Platelet Count 267 thou/uL (130-400); RBC Distribution Width 12.8 % (11.5-14.5); Red Blood Cell (RBC) Count 3.48 mill/uL (4.20-5.40); White Blood Cell (WBC) Count 7.7 thou/uL (4.8-10.8)
[2017-04-02 04:32] LABS: Anion Gap 12 mmol/L (10-20); BUN (Urea Nitrogen) 29 mg/dL (9.8-20.1); Calc. Creatinine Clearance 73 mL/min (70-130); Calcium 9.2 mg/dL (7.8-10.44); Carbon Dioxide 26 mmol/L (22-29); Cardiac Risk 4.6 (Less than 4.5); Chloride 108 mmol/L (98-107); Cholesterol 137 mg/dl (< 200 Desired); Estimated GFR-MDRD 45; Glucose 121 mg/dL (70-105); HDL Cholesterol 30 mg/dL (>60 Neg Risk); LDL Cholesterol, Calculated 73 mg/dL; Potassium 4.1 mmol/L (3.5-5.1); Sodium 142 mmol/L (136-145); Triglycerides 168 mg/dL (Less than 150)
[2017-04-02] MEDS: Mometasone/Formoterol 120 PUFF INHALER INH SCH (06:40)
--- NOTE | 2017-04-02 07:53 | PDOC.FM ---
- Subjective Subjective: Patient doing well this AM. She states that her chest pain is better. It reportedly came on suddenly yesterday and persisted for several hours. She has not experienced chest pain like that in the past. She denied any shortness of breath or diaphoresis. She states that over the last few weeks she "just hasn't felt well." She was recently hospitalized with dizziness. An extensive evaluation was done at that time, to include a neurology consult. Patient was diagnosed with BPPV and advised to take meclizine and follow with PT if persistent. She was also advised to decrease lasix dose to once a day, although she has not been following those recommendations. - Objective MAR Reviewed: Yes Vital Signs & Weight: Vital Signs (12 hours) Temp Pulse Resp BP BP Pulse Ox 04/02/17 06:40 72 12 04/02/17 04:01 98.5 F 78 18 107/56 L 95 04/01/17 19:57 98.4 F 67 18 105/53 L 96 Weight Weight 92.079 kg I&O: 04/01/17 04/02/17 04/03/17 06:59 06:59 06:59 Intake Total 1203 Output Total 2 Balance 1201 Result Diagrams: 04/02/17 03:59 04/02/17 03:59 EKG Reviewed by me: Yes Radiology Reviewed by me: Yes Phys Exam - Physical Examination Constitutional: NAD HEENT: moist MMs Neck: supple Respiratory: no wheezing, clear to auscultation bilateral Cardiovascular: RRR, no significant murmur Gastrointestinal: soft, non-tender, positive bowel sounds Musculoskeletal: no edema, pulses present Neurological: non-focal, moves all 4 limbs Psychiatric: A&O x 3 Skin: no rash, cap refill <2 seconds Dx/Plan (1) Atypical chest pain Code(s): R07.89 - OTHER CHEST PAIN Status: Acute (2) BPPV (benign paroxysmal positional vertigo) Code(s): H81.10 - BENIGN PAROXYSMAL VERTIGO, UNSPECIFIED EAR Status: Acute (3) HLD (hyperlipidemia) Code(s): E78.5 - HYPERLIPIDEMIA, UNSPECIFIED Status: Chronic (4) HTN (hypertension) Code(s): I10 - ESSENTIAL (PRIMARY) HYPERTENSION Status: Chronic Qualifiers: Hypertension type: essential hypertension Qualified Code(s): I10 - Essential (primary) hypertension (5) Anxiety Code(s): F41.9 - ANXIETY DISORDER, UNSPECIFIED Status: Chronic (6) CHF (congestive heart failure) Code(s): I50.9 - HEART FAILURE, UNSPECIFIED Status: Chronic Qualifiers: Congestive heart failure type: systolic (7) Diabetes mellitus, type II Status: Chronic (8) TRENT (obstructive sleep apnea) Code(s): G47.33 - OBSTRUCTIVE SLEEP APNEA (ADULT) (PEDIATRIC) Status: Chronic - Plan Plan: 1. Atypical chest pain - Troponin neg x3 - EKG normal sinus rhythm - Cardiolite stress test negative - Monitor on telemetry 2. BPPV - Recently diagnosed during last hospitalization - Patient evaluated by neurologist at that time - Recommended decreased dose of lasix and treatment with meclizine PRN - Recommended outpatient PT if no improvement in symptoms 3. HTN - Continue home medications - BP this AM 107/56 4. HLD - Continue home medications 5. sCHF with EF 45% - Does not appear to be in acute exacerbation currently - Continue home medications - Strict I&O's - 1500 mL fluid restriction 6. AURELIO - Patient on mild fluids at 100 ml/hr as to not fluid overload d/t CHF - Improved Cr this AM to 1.23 from 1.4 7. Diabetes mellitus type II - Continue home medications - ACHS accuchecks - Mild SSI 8. Anxiety - Continue home medications 9. Multifocal PVC's - Evaluate if new in onset - Consider consulting cards for opinion Dispo: Stable. D/C home today.
[2017-04-02] MEDS ORDERED: metFORMIN 500 MG TAB PO SCH (08:00)
[2017-04-02] MEDS ORDERED: Spironolactone 25 MG TAB PO SCH (09:00)
[2017-04-02] MEDS ORDERED: Regadenoson 0.4 MG/5 ML SYRINGE ONE (09:45)
[2017-04-02] MEDS: busPIRone HCl 10 MG TAB PO SCH (13:25)
[2017-04-02] MEDS: Sacubitril 49 MG/Valsartan 51 MG TABLET PO SCH (13:26)
--- NOTE | 2017-04-02 13:48 | NM ---
MYOCARDIAL PERFUSION SCAN: The patient was given 10 mCi of Technetium sestamibi for resting imaging and 27 mCi for stress imagin g. HISTORY: Chest pain. The left ventricle was imaged with SPECT imaging. CT attenuation performed. FINDINGS: There is normal activity throughout the left ventricle on both stress and rest images. No evidence o f reversible ischemia. Ejection fraction is slightly decreased mild global hypokinesis. Ejection fraction was recorded at 4 5%. IMPRESSION: 1. No evidence of reversible ischemia. 2. Mild global hypokinesis which mildly decreased ejection fraction. POS: [facility]
[2017-04-02 15:55] VITALS: BP 99/52; TEMP 98.2
[2017-04-02 16:41] LABS: Anion Gap 10 mmol/L (10-20); BUN (Urea Nitrogen) 20 mg/dL (9.8-20.1); Calc. Creatinine Clearance 82 mL/min (70-130); Calcium 9.2 mg/dL (7.8-10.44); Carbon Dioxide 28 mmol/L (22-29); Chloride 107 mmol/L (98-107); Estimated GFR-MDRD 51; Glucose 168 mg/dL (70-105); Potassium 3.9 mmol/L (3.5-5.1); Sodium 141 mmol/L (136-145)
--- NOTE | 2017-04-05 13:03 | DIS-2 ---
DATE OF ADMISSION: 04/01/2017 DATE OF DISCHARGE: 04/02/2017 ADMITTING ATTENDING: Bradley Roger M.D. DISCHARGE ATTENDING: Hasmukh Melo M.D. RESIDENT: Radha Waterman DO PROCEDURES: 1. Chest x-ray: No acute process. 2. Myocardial perfusion scan, no evidence of reversible ischemia. Ejection fraction was recorded at 45%. There was mild global hypokinesis, which mildly decreased ejection fraction. CONSULTATIONS: None. PRIMARY DIAGNOSES: 1. Atypical chest pain. 2. Benign paroxysmal positional vertigo. SECONDARY DIAGNOSES: 1. Hyperlipidemia. 2. Hypertension. 3. Anxiety. 4. Congestive heart failure with ejection fraction of 45%. 5. Diabetes mellitus type 2. 6. Obstructive sleep apnea. DISCHARGE MEDICATIONS: 1. Furosemide 40 mg oral daily. 2. Carvedilol 12.5 mg oral twice daily. 3. Spironolactone 25 mg oral daily. 4. Atorvastatin 80 mg oral daily. 5. Buspirone 10 mg oral twice daily. 6. Entresto 49-51 mg tablet 1 each oral twice daily. 7. Metformin 500 mg twice daily. 8. Symbicort 160/4.5 one puff inhalation twice daily. 9. Meclizine 25 mg oral 3 times daily as needed. DISCONTINUED MEDICATION: Of note, furosemide 40 mg twice daily was changed to 40 mg once daily due t o concerns for dehydration and dizziness. HISTORY OF PRESENT ILLNESS AND HOSPITAL COURSE: This is a 57-year-old female with past medical histo ry of congestive heart failure, type 2 diabetes mellitus, hypertension, hyperlipidemia, and smoking h istory who presents with chest pain from clinic about a week and a half ago. The patient was [facility] for vertigo, dehydration after a flu-like illness. She reported that since that time she has b een feeling generally weak and without energy. Due to that, she has been trying to get in touch with her billing coordinator, Dr. Wooten, but has been unable to do so, so she went to see her PCP today. In the office, she reported onset of muscle cramp pressure-like chest pain that happened this morning an d has not gone away. The pain did not radiated. It was not associated with nausea, vomiting, or vinh phoresis. The pain is associated with shortness of breath however. Since her last admission, she enciso s had poor appetite. She reports no vomiting or diarrhea. No other recent illness. On her last adm ission, she was diagnosed with BPPV and sent home with meclizine. She has not yet picked that up, bu susan does report her BPPV is improved, although not completely resolved. Also, the patient and the ninoska ent's reported that she has been getting low blood pressure readings at home such as 90s/60s. In the emergency room, she was given aspirin 324 mg, 500 mL bolus of normal saline, and Tylenol 1 g nancy. The patient remained stable throughout the course of her hospital stay. A nuclear stress test was pe rformed to evaluate for myocardial ischemia. There was no evidence of reversible ischemia noted on t he scan. There was some global hypokinesis noted with mildly decreased ejection fraction of 45%, whi ch is consistent with the patient's history of congestive heart failure. The chest pain had resolved by the time the patient was reevaluated the next day. The patient did note that this felt more like a muscle spasm. It is uncertain either not this was related to dehydration as patient was noted to have a BUN of 29 and creatinine of 1.23 when she did improve with fluid resuscitation. The patient w as advised at last hospitalization to decrease her Lasix from 40 mg b.i.d. to Lasix 40 mg daily. Shwetha fonseca was discussed with Dr. Wooten in passing and he agreed with this medication changes. The patient was having trouble maintaining blood pressure and was becoming dizzy. This was discussed again with the patient and she was in understanding that she was only to be taking 40 mg a day as opposed to 40 mg twice a day. Of note, patient was noted to have multifocal PVCs on telemetry. On reevaluation of her telemetry st rips from prior admission, it was noted that she was having at least bigeminal PVCs at that time. Dr Jaky Galvin was consulted in passing for an opinion regarding his multifocal PVCs with a history of AICD and congestive heart failure diagnosis. AICD was interrogated at her last visit and thus it was dis cussed that various findings were negative on AICD interrogation likely this is nothing to be too con cerned with at this time. Upon evaluation of AICD interrogation, it is noted that everything was nor mal at that time and thus patient was advised to continue following closely with her billing coordinator as an outpatient. The patient's symptoms had improved prior to discharge from the hospital, although sh helen did claim to be weak. She did request a several day work excuse as she had also had done on the pr ior admission. It was explained that we can only account for her days here in the hospital and to co ntact Dr. Wooten, her primary care physician regarding the other days. DISPOSITION: Stable. DISCHARGE INSTRUCTIONS: 1. Location: Home. 2. Diet: Heart healthy diet, consistent carbohydrate diet. 3. Activity: No restrictions. 4. Followup: Patient is to follow up with [facility] within 7 days of discharge to en sure resolution/improvement in symptoms. This was discussed with the patient and she was in understa nding of the plan and agreeable.
== END 2017-04-02 17:06 | disposition home or self-care (01) ==
LOC: ERS 13:59 → 2SW 16:15
PROVIDERS: ADMIT Family Medicine; ATTEND Family Medicine
DX: R07.89 Other chest pain (principal); H81.10 Benign paroxysmal vertigo, unspecified ear; I11.0 Hypertensive heart disease with heart failure; I50.9 Heart failure, unspecified; E78.5 Hyperlipidemia, unspecified; E11.9 Type 2 diabetes mellitus without complications; G47.33 Obstructive sleep apnea (adult) (pediatric); F41.9 Anxiety disorder, unspecified; F17.200 Nicotine dependence, unspecified, uncomplicated; Z88.5 Allergy status to narcotic agent; Z88.1 Allergy status to other antibiotic agents; Z88.8 Allergy status to other drugs, medicaments and biological substances; Z79.84 Long term (current) use of oral hypoglycemic drugs; Z79.899 Other long term (current) drug therapy; Z95.810 Presence of automatic (implantable) cardiac defibrillator
CPT/HCPCS: 36415; 36416; 71045; 78452; 80048; 80053; 80061; 82553; 83880; 84484; 85025; 93005; 93017; 94760; 96360; 96361; A9500; G0378; J2785

== ENCOUNTER 2017-05-22 11:16 | Emergency (ER) | payer BC ==
[2017-05-22 12:15] LABS: #Basophils 0.1 thou/uL (0.0-0.2); #Eosinphils 0.2 thou/uL (0.0-0.7); #Lymphocytes 1.9 thou/uL (1.20-3.40); #Monocytes 0.5 thou/uL (0.11-0.59); %Basophils 0.8 % (0.0-1.0); %Lymphocytes 19.5 % (21.0-51.0); %Monocytes 5.3 % (0.0-10.0); %Neutrophils 72.3 % (42.0-75.0); Hemoglobin 12.7 g/dL (12.0-16.0); Mean Corpuscular HGB CONC 33.4 g/dL (32.0-36.0); Mean Corpuscular Hemoglobin 30.4 pg (27.0-31.0); Mean Platelet Volume 8.3 fL (7.4-10.4); Platelet Count 312 thou/uL (130-400); Red Blood Cell (RBC) Count 4.18 mill/uL (4.20-5.40); White Blood Cell (WBC) Count 9.7 thou/uL (4.8-10.8)
[2017-05-22 12:25] LABS: Bilirubin Negative (Negative); Blood, Urine Negative (Negative); Clarity CLEAR (Clear); Glucose, Urine (Dipstick) Negative (Negative); Leukocyte Negative (Negative); Nitrite Negative (Negative); Protein, Urine (Dipstick) Negative (Neg-Trace); Specific Gravity, Urine 1.015 (1.002-1.036); Urobilinogen 0.2 mg/dL (0.2-1.0); pH, Urine 5.5 (5.0-9.0)
[2017-05-22 12:40] LABS: ALT (SGPT) 18 U/L (8-55); AST (SGOT) 15 U/L (5-34); Albumin 4.3 g/dL (3.5-5.0); Alkaline Phosphatase 99 U/L (40-150); Anion Gap 16 mmol/L (10-20); BUN (Urea Nitrogen) 18 mg/dL (9.8-20.1); Bilirubin, Total 0.6 mg/dL (0.2-1.2); Calc. Creatinine Clearance 0 mL/min (70-130); Calcium 9.6 mg/dL (7.8-10.44); Carbon Dioxide 24 mmol/L (22-29); Chloride 104 mmol/L (98-107); Estimated GFR-MDRD 59; Glucose 118 mg/dL (70-105); Potassium 4.3 mmol/L (3.5-5.1); Protein, Total 7.3 g/dL (6.0-8.3); Sodium 140 mmol/L (136-145)
[2017-05-22 12:45] LABS: CKMB 0.5 ng/mL (0-6.6); Troponin I Less than 0.010 ng/mL (< 0.028)
[2017-05-22] MEDS ORDERED: Ibuprofen 200 MG TAB ONE (13:05)
[2017-05-22] MEDS ORDERED: Bacitracin Zinc 1 Packet ONE (13:05)
--- NOTE | 2017-05-22 14:37 | RAD ---
RIGHT ANKLE 3 VIEWS: INDICATION: Pain, injury. COMPARISON: 11/03/11. FINDINGS: Mortise is intact. There is no fracture or dislocation of the right ankle seen. Prior soft tissue s welling has resolved. Calcaneal enthesophyte formation is again demonstrated. IMPRESSION: No acute osseous abnormality of the right ankle. POS: [facility]
--- NOTE | 2017-05-22 14:38 | RAD ---
THREE VIEWS RIGHT FOOT: INDICATION: Right foot injury, pain. FINDINGS: Lisfranc joint is maintained. There is no fracture or dislocation identified. Calcaneal enthesophyt e is seen. IMPRESSION: No acute fracture or right foot. POS: [facility]
== END 2017-05-22 13:33 | disposition home or self-care (01) ==
LOC: ERS 11:16
DX: S93.401A Sprain of unspecified ligament of right ankle, initial encounter (principal); E11.9 Type 2 diabetes mellitus without complications; I11.0 Hypertensive heart disease with heart failure; I50.9 Heart failure, unspecified; E78.5 Hyperlipidemia, unspecified; Z87.891 Personal history of nicotine dependence; Z79.84 Long term (current) use of oral hypoglycemic drugs; Z79.899 Other long term (current) drug therapy; W01.0XXA Fall on same level from slipping, tripping and stumbling without subsequent striking against object, initial encounter
CPT/HCPCS: 36415; 80053; 81003; 82553; 84484; 85025

== ENCOUNTER 2017-06-04 12:07 | Outpatient (CLI) | payer BC | END 2017-06-04 12:08 | disposition home or self-care (01) | LOC: BICRAD 12:07 | PROVIDERS: ATTEND Family Medicine | DX: M47.22 Other spondylosis with radiculopathy, cervical region (principal) | CPT/HCPCS: 71046; 72052 ==

== ENCOUNTER 2017-08-04 12:02 | Emergency (ER) | payer BC ==
[2017-08-04 12:36] LABS: #Basophils 0.1 thou/uL (0.0-0.2); #Eosinphils 0.2 thou/uL (0.0-0.7); #Lymphocytes 1.5 thou/uL (1.20-3.40); #Monocytes 0.6 thou/uL (0.11-0.59); #Neutrophils 8.4 thou/uL (1.40-6.50); %Basophils 0.5 % (0.0-1.0); %Eosinophils 1.6 % (0.0-10.0); %Lymphocytes 14.3 % (21.0-51.0); %Monocytes 5.3 % (0.0-10.0); %Neutrophils 78.3 % (42.0-75.0); Mean Corpuscular HGB CONC 33.4 g/dL (32.0-36.0); Mean Corpuscular Hemoglobin 30.1 pg (27.0-31.0); Mean Corpuscular Volume 89.9 fl (81.0-99.0); Mean Platelet Volume 8.1 fL (7.4-10.4); Platelet Count 307 thou/uL (130-400); RBC Distribution Width 13.4 % (11.5-14.5); Red Blood Cell (RBC) Count 4.31 mill/uL (4.20-5.40); White Blood Cell (WBC) Count 10.7 thou/uL (4.8-10.8)
[2017-08-04 12:57] LABS: ALT (SGPT) 15 U/L (8-55); AST (SGOT) 13 U/L (5-34); Albumin 4.4 g/dL (3.5-5.0); Alkaline Phosphatase 96 U/L (40-150); Anion Gap 16 mmol/L (10-20); BUN (Urea Nitrogen) 36 mg/dL (9.8-20.1); Bilirubin, Total 0.4 mg/dL (0.2-1.2); CK (CPK) 46 U/L (29-168); Calc. Creatinine Clearance 0 mL/min (70-130); Carbon Dioxide 19 mmol/L (22-29); Chloride 107 mmol/L (98-107); Estimated GFR-MDRD 36; Globulin 3.3 g/dL (2.4-3.5); Glucose 148 mg/dL (70-105); Potassium 5.1 mmol/L (3.5-5.1); Protein, Total 7.7 g/dL (6.0-8.3); Sodium 137 mmol/L (136-145)
[2017-08-04 13:01] LABS: CKMB 0.7 ng/mL (0-6.6); Troponin I Less than 0.010 ng/mL (< 0.028)
[2017-08-04 13:08] LABS: Bilirubin Negative (Negative); Blood, Urine Negative (Negative); Clarity CLEAR (Clear); Glucose, Urine (Dipstick) Negative (Negative); Leukocyte Negative (Negative); Nitrite Negative (Negative); Protein, Urine (Dipstick) Negative (Neg-Trace); Specific Gravity, Urine 1.011 (1.002-1.036); Urobilinogen 0.2 mg/dL (0.2-1.0)
[2017-08-04] MEDS ORDERED: Acetaminophen 500 MG TAB ONE (14:06)
== END 2017-08-04 15:06 | disposition home or self-care (01) ==
LOC: ERS 12:02
DX: E86.0 Dehydration (principal); E11.9 Type 2 diabetes mellitus without complications; I11.0 Hypertensive heart disease with heart failure; I50.9 Heart failure, unspecified; E78.5 Hyperlipidemia, unspecified; F41.9 Anxiety disorder, unspecified; Z87.891 Personal history of nicotine dependence; Z79.84 Long term (current) use of oral hypoglycemic drugs; Z79.899 Other long term (current) drug therapy; Z79.891 Long term (current) use of opiate analgesic
CPT/HCPCS: 36415; 80053; 81003; 82550; 82553; 83880; 84484; 85025; 96360

== ENCOUNTER 2017-08-23 14:55 | Inpatient (IN) | payer BC ==
[2017-08-23 15:29] LABS: #Basophils 0.1 thou/uL (0.0-0.2); #Eosinphils 0.1 thou/uL (0.0-0.7); #Monocytes 0.8 thou/uL (0.11-0.59); #Neutrophils 10.6 thou/uL (1.40-6.50); %Basophils 0.6 % (0.0-1.0); %Eosinophils 0.9 % (0.0-10.0); %Lymphocytes 14.4 % (21.0-51.0); %Monocytes 5.7 % (0.0-10.0); %Neutrophils 78.5 % (42.0-75.0); Hemoglobin 12.6 g/dL (12.0-16.0); Mean Corpuscular HGB CONC 33.3 g/dL (32.0-36.0); Mean Corpuscular Hemoglobin 30.7 pg (27.0-31.0); Mean Corpuscular Volume 92.3 fL (78.0-98.0); Mean Platelet Volume 8.2 fL (7.4-10.4); Platelet Count 275 thou/uL (130-400); RBC Distribution Width 13.8 % (11.5-14.5); Red Blood Cell (RBC) Count 4.11 mill/uL (4.20-5.40); White Blood Cell (WBC) Count 13.6 thou/uL (4.8-10.8)
[2017-08-23 15:53] LABS: ALT (SGPT) 13 U/L (8-55); AST (SGOT) 11 U/L (5-34); Albumin 4.4 g/dL (3.5-5.0); Alkaline Phosphatase 90 U/L (40-150); Anion Gap 15 mmol/L (10-20); BUN (Urea Nitrogen) 62 mg/dL (9.8-20.1); Bilirubin, Total 0.3 mg/dL (0.2-1.2); CK (CPK) 36 U/L (29-168); Calc. Creatinine Clearance 0 mL/min (70-130); Calcium 9.7 mg/dL (7.8-10.44); Carbon Dioxide 20 mmol/L (22-29); Chloride 106 mmol/L (98-107); Estimated GFR-MDRD 20; Globulin 3.1 g/dL (2.4-3.5); Glucose 108 mg/dL (70-105); Lipase 37 U/L (8-78); Potassium 4.7 mmol/L (3.5-5.1); Protein, Total 7.5 g/dL (6.0-8.3); Sodium 136 mmol/L (136-145)
--- NOTE | 2017-08-23 15:53 | RAD ---
PA CHEST: History Chest pain. COMPARISON: 04/01/17. FINDINGS: Lung hua are clear. No infiltrate or vascular congestion seen. Heart size is normal. AICD leads . IMPRESSION: No acute process. POS: [facility]
[2017-08-23 15:54] LABS: CKMB 1.1 ng/mL (0-6.6); Troponin I Less than 0.010 ng/mL (< 0.028)
--- NOTE | 2017-08-23 17:03 | CT ---
CT HEAD NONCONTRAST: CLINICAL INDICATIONS: Ataxia. Weakness. FINDINGS: There is no acute intracranial hemorrhage, mass effect, midline shift, or ventriculomegaly. The calv arium is intact. IMPRESSION: There is no acute intracranial hemorrhage or mass effect. POS: [facility]
--- NOTE | 2017-08-23 18:13 | PDOC.FPRHP ---
- History of Present Illness Chief Complaint: Chest pain History of Present Illness: Mrs. Whyte presented to the ER from clinic, Dr. Obregon, with chest pain radiating to left arm and weakness. Pain has been present for 1 year off an on but has progressively worsened over the 8-10 past days. Pain was constant and worse this am. 5/10 but 3/10 at time of interview. Pain located over defibrillator and radiates to L arm. Not reproducible by palpation. Laying down alleviates. Ibuprofen doesn't help. Sitting/standing aggravates. Neck movement not associated with pain. Described as burning. Pt reports dizziness, and recent hx of falls, unsteady gait. 1st fall 2 mo ago- in shower lost balance and fell. 2nd fall-1 mo ago, sitting on bed and went to reach something and fell in floor. 3rd fall-standing in garden, reached up, felt off balance and fell. Denies LOC, change in vision at the time, lightheadedness. It just happens all of a sudden. Reports normal fluid intake. Fatigue and weakness ever since CHF diagnosis. Has seen Dr. Wright neuro outpatient. Scheduled for myelogram to assess for nerve impingement. Denies hx of kidney disease. ED Course: CT, CXR, EKG, basic labs - Allergies/Adverse Reactions Allergies Allergy/AdvReac Type Severity Reaction Status Date / Time ROMANA Inhibitors Allergy Verified 03/06/16 15:40 cefaclor [From Ceclor] Allergy Anaphylaxis Verified 08/23/17 20:57 ciprofloxacin [From Cipro] Allergy Anaphylaxis Verified 08/23/17 20:57 ciprofloxacin HCl Allergy Anaphylaxis Verified 08/23/17 20:57 [From Cipro] codeine Allergy Rash Verified 08/23/17 20:57 - Home Medications Medication Instructions Recorded Confirmed Type Carvedilol [Coreg] 6.25 mg PO BID 01/01/13 08/23/17 History Spironolactone 25 mg PO DAILY #0 tablet 01/03/13 08/23/17 Rx Atorvastatin Calcium 80 mg PO DAILY 02/05/16 08/23/17 History busPIRone HCl [Buspirone HCl] 15 mg PO TID 02/05/16 08/23/17 History metFORMIN [Glucophage] 500 mg PO BID-WM 03/23/17 08/23/17 History Furosemide [Lasix] 40 mg PO DAILY #30 tablet 04/02/17 08/23/17 Rx Escitalopram Oxalate 10 mg PO DAILY 08/23/17 08/23/17 History FLUoxetine HCl [Prozac] 40 mg PO DAILY 08/23/17 08/23/17 History Sacubitril/Valsartan 49/51 1 tab PO BID 08/23/17 08/23/17 History [Entresto 49 mg-51 mg Tablet] - History PMHx:HTN, HLD, T2DM, CHF (last echo 03/2017, EF 40%), NSVT s/p AICD 2012, anxiety, depression PSHx: Tonsillectomy, AICD (07/2012), Hysteroscopy FHx: CHF (Father), Breast CA aunt. Social: , lives with . 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 Quit smoking 31 yrs ago. Occasional alcohol use, 1 glass of wine every other night. No drug use. - Review of Systems General: reports: weight/appetite/sleep changes (Loss of appetite for 6 mo. Reports weight loss but unsure how much), fatigue (since diagnosed with CHF). denies: fever/chills, night sweats Eyes: reports: vision changes (worsening far vision). denies: eye pain ENT: denies: nasal congestion, rhinorrhea Respiratory: reports: shortness of breath (with exertion), exercise intolerance. denies: cough, congestion Cardiovascular: reports: chest pain, palpitation (flutters at times but not currently). denies: edema Gastrointestinal: reports: constipation. denies: nausea, vomiting, diarrhea, abdominal pain, GI bleeding Genitourinary: denies: incontinence, dysuria Skin: denies: rashes, lesions Musculoskeletal: reports: pain (chronic neck pain), arthritis/arthralgias (in hands bilaterally) Neurological: reports: numbness (both hands sometimes), weakness, other ( reports dizziness, lack of coordination and balance) Psychological: reports: anxiety, depression (denies suicidal/homocidal ideation) - Vital signs BP: [138/64] HR: [64] RR: [16] Tmax: [98.4] Pox: [98]% on [RA] Wt: [84 kg] - Physical Exam Constitutional: NAD, awake, alert and oriented, well developed HEENT: normocephalic and atraumatic, PERRLA, EOMI, conjunctiva clear, grossly normal hearing, MMM, oropharynx clear Neck: supple, trachea midline, no thyromegaly Chest: no-tender to palpation, no lesions Heart: RRR, normal S1/S2, no edema Lungs: CTAB, no rales/rhonchi, no wheezing Abdomen: soft, non-tender, bowel sounds present Musculoskeletal: normal structure, normal tone, ROM grossly normal, other Neurological: no focal deficit, CN II-XII intact, normal sensation, other ( Romberg, heel to arnold, finger to nose, rapid alternating movements normal. UE and LE muscle strength 5/5 bilaterally. Gait unsteady. unable to walk heel to toe.) Skin: no rash/lesions, capillary refill <2 seconds Heme/Lymphatic: no unusual bruising or bleeding, no purpura Psychiatric: normal mood and affect, intact recent and remote memory FMR H&P: Results - Labs Result Diagrams: 08/23/17 15:22 08/23/17 15:22 Lab results: WBC 13.6 thou/uL (4.8-10.8) H 08/23/17 15:22 Hgb 12.6 g/dL (12.0-16.0) 08/23/17 15:22 Hct 37.9 % (36.0-47.0) 08/23/17 15:22 MCV 92.3 fL (78.0-98.0) 08/23/17 15:22 Plt Count 275 thou/uL (130-400) 08/23/17 15:22 Neutrophils % 78.5 % (42.0-75.0) H 08/23/17 15:22 Sodium 136 mmol/L (136-145) 08/23/17 15:22 Potassium 4.7 mmol/L (3.5-5.1) 08/23/17 15:22 Chloride 106 mmol/L (98-107) 08/23/17 15:22 Carbon Dioxide 20 mmol/L (22-29) L 08/23/17 15:22 BUN 62 mg/dL (9.8-20.1) H 08/23/17 15:22 Creatinine 2.52 mg/dL (0.6-1.1) H 08/23/17 15:22 Glucose 108 mg/dL (70-105) H 08/23/17 15:22 Calcium 9.7 mg/dL (7.8-10.44) 08/23/17 15:22 Total Bilirubin 0.3 mg/dL (0.2-1.2) 08/23/17 15:22 AST 11 U/L (5-34) 08/23/17 15:22 ALT 13 U/L (8-55) 08/23/17 15:22 Alkaline Phosphatase 90 U/L (40-150) 08/23/17 15:22 Creatine Kinase 36 U/L (29-168) 08/23/17 15:22 CK-MB (CK-2) 1.1 ng/mL (0-6.6) 08/23/17 15:22 B-Natriuretic Peptide 14.1 pg/mL (0-100) 08/23/17 15:21 Serum Total Protein 7.5 g/dL (6.0-8.3) 08/23/17 15:22 Albumin 4.4 g/dL (3.5-5.0) 08/23/17 15:22 Lipase 37 U/L (8-78) 08/23/17 15:22 - EKG Interpretation EKG: negative FMR H&P: A/P - Problem List (1) History of - hypertension Current Visit: Yes Status: Active Code(s): Z86.79 - PERSONAL HISTORY OF OTHER DISEASES OF THE CIRCULATORY SYSTEM (2) Systolic heart failure Current Visit: Yes Status: Active Code(s): I50.20 - UNSPECIFIED SYSTOLIC ( CONGESTIVE) HEART FAILURE (3) AURELIO (acute kidney injury) Current Visit: Yes Status: Acute Code(s): N17.9 - ACUTE KIDNEY FAILURE, UNSPECIFIED (4) Atypical chest pain Current Visit: Yes Status: Acute Code(s): R07.89 - OTHER CHEST PAIN (5) Anxiety Current Visit: Yes Status: Chronic Code(s): F41.9 - ANXIETY DISORDER, UNSPECIFIED (6) CHF (congestive heart failure) Current Visit: Yes Status: Chronic Code(s): I50.9 - HEART FAILURE, UNSPECIFIED (7) Diabetes mellitus, type II Current Visit: Yes Status: Chronic (8) HLD (hyperlipidemia) Current Visit: Yes Status: Chronic Code(s): E78.5 - HYPERLIPIDEMIA, UNSPECIFIED (9) HTN (hypertension) Current Visit: Yes Status: Chronic Code(s): I10 - ESSENTIAL (PRIMARY) HYPERTENSION Qualifiers: Hypertension type: essential hypertension Qualified Code(s): I10 - Essential (primary) hypertension - Plan Atypical chest pain -DDX includes cardiac, MSK, GERD, anxiety -trend troponins, first 2 neg -Heart score 3, low risk -tylenol prn pain. Consider nitro if pain recurs -Repeat EKG if pain recurs -Fasting lipids done recently. No need to repeat now. -Ordered TSH, mag, phos -EKG- normal -CXR no acute process, AICD in place -NPO after midnight. Hold beta efren for now -Last stress test normal April 2017 AURELIO -IV NS @ 125. Reevaluate in am -Hold metformin and Lasix for now -monitor BMP -will calculate FeUrea (unable to get FeNa d/t diuretic use) -Monitor I/Os Weakness/falls -CT head negative -has seen neurologist outpatient. Already scheduled for myelogram outpatient -Orthostatic BP normal Chronic CHF w/ AICD -last echo 04/11, 40% EF -Held lasix -continue home entresto T2DM -Hold metformin for AURELIO -mild sliding scale -accuchecks achs HTN -Hold coreg for now -On spironolactone Leukocytosis -13.6 on admission -monitor CBC and for signs of infection HLD -continue atorvastatin -recent FLP WNL in clinic Anxiety/depression -cont home fluoxetine, escitalopram, buspirone Hx BPPV Hx cervical degenerative disk disease/radiculopathy Ppx: SCDs (Mariza score 2 - low risk for DVT). GI ppx not indicated. FMR H&P: Upper Level - Plan Date/Time: 08/23/17 1810 I, Nathaly Peralta MD, PGY-3, have evaluated this patient and agree with findings/ plan as outlined by pharmacist intern resident.
[2017-08-23] MEDS ORDERED: Sodium Chloride 0.9% 1,000 ML IV SCH ×2 (18:55→22:00)
[2017-08-23 19:07] LABS: Troponin I Less than 0.010 ng/mL (< 0.028)
[2017-08-23 19:13] VITALS: BMI 29.9
[2017-08-23] MEDS ORDERED: Dextrose 5% in Water 1,000 ML IV PRN (21:52)
[2017-08-23] MEDS ORDERED: Dextrose 50% Abboject 50 ML SYRINGE SLOW IVP PRN (21:52)
[2017-08-23] MEDS ORDERED: Acetaminophen 325 MG TAB PO PRN (21:52)
[2017-08-23] MEDS ORDERED: HumaLOG 300 UNITS/3 ML VIAL SC PRN (22:03)
[2017-08-23 22:37] LABS: Magnesium 2.6 mg/dL (1.6-2.6); Phosphorus 5.1 mg/dL (2.3-4.7)
--- NOTE | 2017-08-23 22:56 | PDOC.EVN ---
Event Note - Event Note Event Note: Patient seen and examined by me on 08/22/2017 @2100. History, exam, assessment and plan reviewed and agree with resdient's documentation. Briefly this is a 57 year old female with h/o HFrEF, HTN, HLD, Type 2 DM presented c/o chest pain left sided radiated down her left arm. Patient reported that this has been an intermittent problem over the last year but this morning was worse. She has attributed the pain to her position while sleeping. Denies any associated SOB, N /V, diaphoresis, or palpitations. Pain localized over her AICD implantation site. Also c/o increased falls- has had 3 falls over the last 3-4 months. No associated dizziness prior to fall. All have been associated with position changes. Has also been seeing neurology for further evaluation of these. PMH/PSH /Meds/ All reviewed and agree with resident's documentation. BP 124/68 P65 RR 18 96% RA Exam repeated by me and agree with resident's findings. Labs: H/H= 12.6/37.9, BUN/Cr=62/2.52, Jy=695, K=4.7, BNP=14.1, trpoonin I <0.010 x 2, CXR- no acute findings; EKG NSR, no ST changes. 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
[2017-08-24 03:49] LABS: Creatinine, Urine 66.02 mg/dL (47-110)
--- NOTE | 2017-08-24 05:17 | PDOC.FM ---
- Subjective Subjective: Pt. reports feeling better today, chest pain is 2/10, continued intermittent weakness with standing, frequent urination overnight, headache, and constipation. She denies increased SOB, palpitations, swelling, numbness or tingling. - Objective Vital Signs & Weight: Vital Signs (12 hours) Temp Pulse Resp BP BP BP Pulse Ox 08/24/17 04:00 98.3 F 70 18 133/59 L 97 08/23/17 23:50 95 08/23/17 22:40 108/65 101/61 107/54 L 08/23/17 21:10 98.4 F 69 18 104/53 L 94 L 08/23/17 19:12 64 16 138/64 98 Weight Weight 84.232 kg Result Diagrams: 08/24/17 05:15 08/24/17 05:15 <Steven Allison - Last Filed: 08/24/17 09:02> - Objective Vital Signs & Weight: Vital Signs (12 hours) Temp Pulse Resp BP Pulse Ox 08/24/17 12:00 97.1 F L 61 16 113/59 L 95 08/24/17 08:00 96.3 F L 72 16 120/66 96 Weight Admit Weight 84.232 kg Weight 84.232 kg I&O: 08/23/17 08/24/17 08/25/17 06:59 06:59 06:59 Intake Total 1240 Output Total 300 Balance 940 Result Diagrams: 08/24/17 05:15 08/24/17 05:15 <Argelia White - Last Filed: 08/24/17 18:05> Phys Exam - Physical Examination Constitutional: NAD Respiratory: no wheezing, no rales, no rhonchi, clear to auscultation bilateral Cardiovascular: RRR, no significant murmur, no rub Gastrointestinal: soft, non-tender Musculoskeletal: no edema, pulses present Psychiatric: normal affect <Steven Allison - Last Filed: 08/24/17 09:02> Dx/Plan (1) AURELIO (acute kidney injury) Code(s): N17.9 - ACUTE KIDNEY FAILURE, UNSPECIFIED Status: Acute (2) Atypical chest pain Code(s): R07.89 - OTHER CHEST PAIN Status: Acute (3) CHF (congestive heart failure) Code(s): I50.9 - HEART FAILURE, UNSPECIFIED Status: Chronic - Plan Plan: Atypical chest pain -DDX includes cardiac, MSK, GERD, anxiety -trend troponins, first 2 neg -Heart score 3, low risk -tylenol prn pain. Consider nitro if pain recurs -NPO after midnight. Hold beta efren for now -Last stress test normal April 2017 AURELIO -IV NS @ 125. BUN/CR trending down -Hold metformin and Lasix for now -monitor BMP -FeUrea 35.9% indicating intrinsic renal disease -Monitor I/Os Weakness/falls -CT head negative -has seen neurologist outpatient. Scheduled for myelogram outpatient -Orthostatic BP normal Chronic CHF w/ AICD -last echo 04/11, 40% EF -Held lasix -continue home entresto -consider repeat echo today T2DM -Hold metformin for AURELIO -mild sliding scale -accuchecks achs HTN -Hold coreg for now -On spironolactone HLD -continue atorvastatin -recent FLP WNL in clinic Anxiety/depression -cont home fluoxetine, escitalopram, buspirone Constipation -add stool softener Hx BPPV Hx cervical degenerative disk disease/radiculopathy Ppx: SCDs (Mariza score 2 - low risk for DVT). GI ppx not indicated. <Steven Allison - Last Filed: 08/24/17 09:02> Attending Addendum - Attending Addendum Date/Time: 08/24/17 1805 I personally evaluated the patient and discussed the management with Dr. Allison. I agree with the History, Examination, Assessment and Plan documented above with any addition or exceptions noted below. AURELIO improved from 2.52 to 1.52. She is feeling much better. Troponins are negative. Pt will be discharged home to f/u with pcp and cardiology. <Argelia White - Last Filed: 08/24/17 18:05>
[2017-08-24 05:37] LABS: #Basophils 0.1 thou/uL (0.0-0.2); #Eosinphils 0.1 thou/uL (0.0-0.7); #Lymphocytes 1.7 thou/uL (1.20-3.40); #Monocytes 0.6 thou/uL (0.11-0.59); #Neutrophils 6.7 thou/uL (1.40-6.50); %Basophils 0.7 % (0.0-1.0); %Eosinophils 1.5 % (0.0-10.0); %Lymphocytes 18.1 % (21.0-51.0); %Monocytes 6.4 % (0.0-10.0); %Neutrophils 73.3 % (42.0-75.0); Hemoglobin 11.3 g/dL (12.0-16.0); Mean Corpuscular HGB CONC 33.5 g/dL (32.0-36.0); Mean Corpuscular Hemoglobin 30.8 pg (27.0-31.0); Mean Platelet Volume 8.4 fL (7.4-10.4); Platelet Count 242 thou/uL (130-400); RBC Distribution Width 13.8 % (11.5-14.5); Red Blood Cell (RBC) Count 3.66 mill/uL (4.20-5.40); White Blood Cell (WBC) Count 9.1 thou/uL (4.8-10.8)
[2017-08-24 05:46] LABS: Anion Gap 12 mmol/L (10-20); BUN (Urea Nitrogen) 47 mg/dL (9.8-20.1); Calc. Creatinine Clearance 54 mL/min (70-130); Carbon Dioxide 21 mmol/L (22-29); Chloride 110 mmol/L (98-107); Estimated GFR-MDRD 35; Glucose 100 mg/dL (70-105); Potassium 4.8 mmol/L (3.5-5.1); Sodium 138 mmol/L (136-145)
[2017-08-24] MEDS ORDERED: Lactated Ringer's 1,000 ML IV SCH (08:15)
[2017-08-24] MEDS ORDERED: Docusate 100 MG CAP PO SCH (09:00)
[2017-08-24] MEDS ORDERED: Escitalopram Oxalate 10 mg Tablet PO SCH (09:00)
[2017-08-24] MEDS ORDERED: busPIRone HCl 10 MG TAB PO SCH (09:00)
[2017-08-24] MEDS ORDERED: FLUoxetine HCl 20 MG CAP PO SCH (09:00)
[2017-08-24] MEDS ORDERED: Sacubitril 49 MG/Valsartan 51 MG TABLET PO SCH (09:00)
[2017-08-24 13:37] VITALS: BP 113/59; TEMP 97.1
[2017-08-24] MEDS ORDERED: Atorvastatin Calcium 40 MG TAB PO SCH (21:00)
--- NOTE | 2017-08-25 13:38 | DIS-2 ---
DATE OF ADMISSION: 08/23/2017 DATE OF DISCHARGE: 08/24/2017 RESIDENT: Steven Allison DO ADMITTING ATTENDING: Maite Mcnally MD DISCHARGE ATTENDING: Argelia White MD CONSULTATIONS: None. PROCEDURES: 1. Chest x-ray: No acute processes. 2. CT head: There is no acute intracranial hemorrhage or mass effect. PRIMARY DIAGNOSES: 1. Atypical chest pain. 2. Acute kidney injury. 3. Weakness/falls. 4. Chronic congestive heart failure. 5. Type 2 diabetes mellitus. 6. Hypertension. 7. Hyperlipidemia. 8. Anxiety, depression. 9. Constipation. DISCHARGE MEDICATIONS: 1. Carvedilol 6.25 mg tab p.o. b.i.d. 2. Spironolactone mg tab p.o. daily. 3. Atorvastatin calcium 80 mg tab p.o. daily. 4. Buspirone HCL 10 mg tab p.o. t.i.d. 5. Metformin 500 mg tab p.o. b.i.d. with meals. 6. Furosemide 40 mg tab p.o. daily. 7. Fluoxetine HCL 40 mg cap p.o. daily. 8. Sacubitril and valsartan (Entresto) 1 tab p.o. b.i.d. 9. Escitalopram oxalate 10 mg tab p.o. daily. HISTORY OF PRESENT ILLNESS AND HOSPITAL COURSE: Ms. Whyte presented to the ER from the clinic with Dr. Obregon with chest pain radiating to the left arm and weakness. The pain has been there for a year off and on, but has progressively worsened over the past 8 days. Pain is constant and worse. Her c ourse in the ER included CT, chest x-ray, and EKG. Basic labs were ordered all. Chest pain workup w as negative. The patient also reports dizziness and history of recent falls. She has no loss of con sciousness during these falls, but she does have change in vision and lightheadedness. She reports a normal fluid intake. She also has a recent diagnosis of CHF and has felt increased fatigue since th at diagnosis. Her hospital course was fairly stable. During labs it was found that she had an acute kidney injury known by an increased BUN and CR. She was given fluids and we trended that BUN over C R down to an acceptable level. Metformin and Lasix were held during that time and BNP was monitored. Upon discharge today, we are going to resume the Lasix and hold the metformin due to her last hemog lobin A1c being in acceptable range. She feels good today and is ready to go home. DISPOSITION: Stable. DISCHARGE INSTRUCTIONS: 1. Location: Home. 2. Diet: Diabetic diet. 3. Activity: As tolerated. 4. Followup: She is to follow up with her PCP, Dr. 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 Wooten, within the next 2 weeks.
== END 2017-08-24 14:08 | disposition home or self-care (01) | DRG 313 ==
LOC: ERS 14:55 → 2NO 19:00
PROVIDERS: ADMIT Family Medicine; ATTEND Family Medicine
DX: R07.89 Other chest pain (principal); N17.9 Acute kidney failure, unspecified; I50.22 Chronic systolic (congestive) heart failure; I11.0 Hypertensive heart disease with heart failure; Z95.810 Presence of automatic (implantable) cardiac defibrillator; E11.9 Type 2 diabetes mellitus without complications; E78.00 Pure hypercholesterolemia, unspecified; E78.5 Hyperlipidemia, unspecified; F41.9 Anxiety disorder, unspecified; F32.9 Major depressive disorder, single episode, unspecified; K59.00 Constipation, unspecified; Z87.891 Personal history of nicotine dependence; R29.6 Repeated falls; Z91.81 History of falling
CPT/HCPCS: 36415; 36416; 70450; 71045; 80048; 80053; 82553; 82570; 83690; 83735; 83880; 84100; 84443; 84484; 84540; 85025; 93005; 94760; A4216

== ENCOUNTER 2017-09-08 06:53 | Day surgery (SDC) | payer BC ==
[2017-09-07 12:23] VITALS: BMI 30.7
[2017-09-08 07:45] VITALS: BP 115/61; TEMP 97
--- NOTE | 2017-09-08 09:49 | RAD ---
CERVICAL SPINE MYELOGRAM INDICATION: Cervical stenosis, neck pain, cervical radiculopathy. PROCEDURE: After informed consent had been obtained, the patient was escorted to the interventional suite and pl aced on the procedural table. [employer] imaging was performed. The patient was placed into a prone posi tion. Skin on the low back was then prepped and draped in the standard sterile fashion and topical a nd regional soft tissue anesthesia was achieved with 1% lidocaine and sodium bicarbonate. Right L3-4 interlaminar approach was selected, and a 20 gauge needle was uneventfully advanced into the thecal s ac with clear color CSF. Subsequently, 10 mL Isovue M300 was instilled into the thecal sac under helder l time fluoroscopy. Appropriate opacification of thecal sac demonstrated with imaging stored for con firmation. The needle was then removed from the patient. The patient tolerated the procedure well a nd was then transferred to CT to undergo subsequent myelogram. Reference separate report for full de tails. IMPRESSION: Technically successful cervical myelogram as detailed above. POS: [facility]
--- NOTE | 2017-09-08 09:59 | CT ---
CT CERVICAL SPINE MYELOGRAM CT CERVICAL SPINE WITH CONTRAST: Date: 09/08/17 CLINICAL HISTORY: Cervical stenosis with myelopathy. Neck pain, cervical radiculopathy. TECHNIQUE: Please reference the myelogram report for procedural details, described separately. FINDINGS: There is reversal of normal cervical curvature, with a focal, mild kyphosis, which is epicentered at the C4-5 level. Multilevel end plate degenerative changes are present with associated disc space narr owing and marginal osteophyte formation, which is more notable along the anterior aspect of the anter ior vertebral column, although there are multiple disc osteophyte complexes along the posterior verte bral bodies which do efface the thecal sac and thecal sac contents, described in further detail below . There is multiple bilateral mild degenerative facet hypertrophy, as well as bilateral uncinate proces s hypertrophy at multiple levels. Incidental note of retropharyngeal course of the distal right commo n and the right cervical internal carotid artery which does result in a mild degree of mass effect up on the aerodigestive tract, to the right of midline, posteriorly. Partial visualization of left subcl jimi approach cardiac pacing device. No high grade central canal stenosis at C1-2 or C2-3. C3-4: Disc osteophyte complex is present with mild effacement of the ventral thecal sac. No high grade fora alice stenosis. C4-5: Broad based disc osteophyte results in moderate narrowing of the central canal and ventral cord effac ement. There is mild bilateral neural foraminal stenosis related to bilateral uncinate process hypert rophy. Just inferior to the disc space level, there is a left paracentral osteophyte which does resul t in focal mass effect upon the left ventral hemicord with mild associated cord impression. C5-6: Broad based disc osteophyte is present with ventral cord effacement, and mild to moderate narrowing o f the central canal. There is bilateral uncinate process hypertrophy with mild bilateral osseous comp romise and neural foraminal narrowing. C6-7: Disc osteophyte with mild effacement of the ventral thecal sac. There is mild uncinate process hypert rophy with mild neural foraminal compromise. C7-T1: No significant central canal or neural foraminal stenosis. IMPRESSION: There is multilevel cervical spine degenerative change as discussed above, most pronounced at the mid cervical region. POS: [facility]
== END 2017-09-08 10:05 | disposition home or self-care (01) ==
LOC: RAD 06:53
PROVIDERS: ATTEND Neurological Surgery
PROC: B02BY0Z Computerized Tomography (CT Scan) of Spinal Cord using Other Contrast, Unenhanced and Enhanced (ICD-10-PCS; principal; 2017-09-08)
DX: M47.12 Other spondylosis with myelopathy, cervical region (principal); I11.0 Hypertensive heart disease with heart failure; I50.9 Heart failure, unspecified; E11.9 Type 2 diabetes mellitus without complications; F41.9 Anxiety disorder, unspecified; F32.9 Major depressive disorder, single episode, unspecified; M19.90 Unspecified osteoarthritis, unspecified site; E78.00 Pure hypercholesterolemia, unspecified; G47.33 Obstructive sleep apnea (adult) (pediatric); E78.5 Hyperlipidemia, unspecified; Z87.891 Personal history of nicotine dependence; Z88.5 Allergy status to narcotic agent; Z88.1 Allergy status to other antibiotic agents; Z88.8 Allergy status to other drugs, medicaments and biological substances
CPT/HCPCS: 62302; 72126

== ENCOUNTER 2017-09-20 16:20 | Outpatient (CLI) | payer BC | END 2017-09-20 16:21 | disposition home or self-care (01) | LOC: BICRAD 16:20 | PROVIDERS: ATTEND Neurological Surgery | DX: M47.22 Other spondylosis with radiculopathy, cervical region (principal); M48.02 Spinal stenosis, cervical region; M43.12 Spondylolisthesis, cervical region | CPT/HCPCS: 36415; 72040; 80053; 83036; 85025 ==

== ENCOUNTER 2017-11-25 03:10 | Emergency (ER) | payer BC ==
[2017-11-25 03:46] LABS: #Basophils 0.1 thou/uL (0.0-0.2); #Eosinphils 0.3 thou/uL (0.0-0.7); #Lymphocytes 1.8 thou/uL (1.20-3.40); #Monocytes 0.6 thou/uL (0.11-0.59); %Basophils 0.7 % (0.0-1.0); %Eosinophils 3.4 % (0.0-10.0); %Lymphocytes 20.4 % (21.0-51.0); %Monocytes 6.4 % (0.0-10.0); %Neutrophils 69.1 % (42.0-75.0); Hemoglobin 11.5 g/dL (12.0-16.0); Mean Corpuscular HGB CONC 33.2 g/dL (32.0-36.0); Mean Corpuscular Hemoglobin 31.2 pg (27.0-31.0); Mean Platelet Volume 8.7 fL (7.4-10.4); Platelet Count 259 thou/uL (130-400); RBC Distribution Width 12.4 % (11.5-14.5); Red Blood Cell (RBC) Count 3.67 mill/uL (4.20-5.40); White Blood Cell (WBC) Count 8.7 thou/uL (4.8-10.8)
[2017-11-25 04:12] LABS: ALT (SGPT) 11 U/L (8-55); AST (SGOT) 15 U/L (5-34); Albumin 4.4 g/dL (3.5-5.0); Alkaline Phosphatase 88 U/L (40-150); Anion Gap 19 mmol/L (10-20); BUN (Urea Nitrogen) 39 mg/dL (9.8-20.1); Bilirubin, Total 0.4 mg/dL (0.2-1.2); CK (CPK) 72 U/L (29-168); CKMB 0.6 ng/mL (0-6.6); Calc. Creatinine Clearance 0 mL/min (70-130); Calcium 9.8 mg/dL (7.8-10.44); Carbon Dioxide 25 mmol/L (22-29); Chloride 100 mmol/L (98-107); Estimated GFR-MDRD 25; Glucose 111 mg/dL (70-105); Lipase 24 U/L (8-78); Potassium 3.3 mmol/L (3.5-5.1); Protein, Total 7.4 g/dL (6.0-8.3); Sodium 141 mmol/L (136-145); Troponin I Less than 0.010 ng/mL (< 0.028)
[2017-11-25 05:35] LABS: Bilirubin Negative (Negative); Blood, Urine Negative (Negative); Clarity CLEAR (Clear); Glucose, Urine (Dipstick) Negative (Negative); Leukocyte Negative (Negative); Nitrite Negative (Negative); Protein, Urine (Dipstick) Negative (Neg-Trace); Specific Gravity, Urine 1.011 (1.002-1.036); Urobilinogen 0.2 mg/dL (0.2-1.0); pH, Urine 5.5 (5.0-9.0)
--- NOTE | 2017-11-25 08:04 | CT ---
CT BRAIN WITHOUT CONTRAST: Date 11/25/17 INDICATION: Fall from standing. COMPARISON: Prior exam dated 08/23/17. FINDINGS: No acute infarct, hemorrhage, or hydrocephalus is present. Septum pellucidum and third ventricle are midline. The skull is intact. Paranasal sinuses are clear. There is soft tissue swelling overlying th e left zygoma and anterior aspect of the left maxillary sinus. IMPRESSION: 1. Small soft tissue contusion overlying the left cheek. 2. No acute intracranial abnormality. POS: [facility]
--- NOTE | 2017-11-25 08:38 | RAD ---
PORTABLE CHEST 1 VIEW: DATE: 11/25/17. TIME: 3:33 a.m. HISTORY: Syncope. FINDINGS: Comparison is made with the exam of 08/23/17. The heart size is borderline. Left-sided AICD remains in place. The lungs are expanded without foca l areas of consolidation, pneumothoraces, josie pulmonary edema, or pleural effusions. IMPRESSION: No acute process. POS: [facility]
--- NOTE | 2017-11-27 17:37 | EKG ---
Test Reason : SYNCOPE Blood Pressure : / mmHG Vent. Rate : 067 BPM Atrial Rate : 067 BPM P-R Int : 174 ms QRS Dur : 108 ms QT Int : 466 ms P-R-T Axes : 048 -22 021 degrees QTc Int : 492 ms Sinus rhythm with occasional Premature ventricular complexes Incomplete left bundle branch block Prolonged QT Abnormal ECG Confirmed by DAVE WHITT, BELKYS ([id number]), image editor VIANEY RUSHING ([id number]) on 11/27/2017 5:36:56 PM Referred By: Confirmed By:BELKYS ACOSTA MD
== END 2017-11-25 05:35 | disposition home or self-care (01) ==
LOC: ERS 03:10
DX: S06.0X0A Concussion without loss of consciousness, initial encounter (principal); R55 Syncope and collapse; E11.9 Type 2 diabetes mellitus without complications; E78.5 Hyperlipidemia, unspecified; I11.0 Hypertensive heart disease with heart failure; I50.9 Heart failure, unspecified; F41.9 Anxiety disorder, unspecified; Z87.891 Personal history of nicotine dependence; W18.30XA Fall on same level, unspecified, initial encounter
CPT/HCPCS: 70450; 71045; 80053; 81003; 82550; 82553; 83690; 83880; 84484; 85025; 93005; 96360; 96361

== ENCOUNTER 2018-01-28 08:22 | Outpatient (CLI) | payer BC ==
--- NOTE | 2018-01-28 10:56 | CT ---
CT OF CHEST AND ABDOMEN AND PELVIS PERFORMED WITH INTRAVENOUS CONTRAST ENHANCEMENT: HISTORY: Fatigue and weight loss. Right-sided pain and pressure. COMPARISON: CT of the chest on 12/06/2015. FINDINGS: The lungs are clear of any infiltrative process. There are no pulmonary nodules identified or eviden ce for pleural effusions. There is no significant mediastinal or hilar adenopathy. No significant axillary adenopathy is noted . CT OF ABDOMEN PERFORMED WITH CONTRAST ENHANCEMENT: The liver, spleen, pancreas, and gallbladder regions are unremarkable. Right and left adrenal glands and right and left kidneys are normal in size. There is no significant periaortic or mesenteric adenopathy. No bowel wall findings. CT OF PELVIS PERFORMED WITH CONTRAST ENHANCEMENT: There is no evidence of adenopathy, mass, or free fluid. The appendix region is unremarkable. Review of osseous structures shows arthritic changes of the spine. IMPRESSION: Essentially unremarkable CT of the chest, abdomen, and pelvis. POS: [facility]
[2018-01-28] MEDS ORDERED: ISOVUE-370 76%-LOCM 1 ML ONE (13:29)
== END 2018-01-28 08:23 | disposition home or self-care (01) ==
LOC: BICCT 08:22
PROVIDERS: ATTEND Student in an Organized Health Care Education/Training Program
DX: R53.81 Other malaise (principal); R53.83 Other fatigue; R63.4 Abnormal weight loss
CPT/HCPCS: 71260; 74177

== ENCOUNTER 2018-02-16 17:31 | Emergency (ER) | payer BC ==
[2018-02-16 18:19] LABS: #Basophils 0.1 thou/uL (0.0-0.2); #Eosinphils 0.2 thou/uL (0.0-0.7); #Lymphocytes 2.1 thou/uL (1.20-3.40); #Monocytes 0.8 thou/uL (0.11-0.59); #Neutrophils 8.7 thou/uL (1.40-6.50); %Basophils 0.8 % (0.0-1.0); %Eosinophils 1.4 % (0.0-10.0); %Lymphocytes 17.4 % (21.0-51.0); %Neutrophils 73.4 % (42.0-75.0); Hemoglobin 12.4 g/dL (12.0-16.0); Mean Corpuscular HGB CONC 33.3 g/dL (32.0-36.0); Mean Corpuscular Hemoglobin 30.1 pg (27.0-31.0); Mean Corpuscular Volume 90.5 fL (78.0-98.0); Mean Platelet Volume 9.1 fL (7.4-10.4); Platelet Count 269 thou/uL (130-400); RBC Distribution Width 12.6 % (11.5-14.5); Red Blood Cell (RBC) Count 4.11 mill/uL (4.20-5.40); White Blood Cell (WBC) Count 11.8 thou/uL (4.8-10.8)
[2018-02-16 18:42] LABS: ALT (SGPT) 12 U/L (8-55); AST (SGOT) 15 U/L (5-34); Albumin 4.4 g/dL (3.5-5.0); Alkaline Phosphatase 97 U/L (40-150); Anion Gap 15 mmol/L (10-20); BUN (Urea Nitrogen) 35 mg/dL (9.8-20.1); Bilirubin, Total 0.5 mg/dL (0.2-1.2); Calc. Creatinine Clearance 0 mL/min (70-130); Calcium 9.9 mg/dL (7.8-10.44); Carbon Dioxide 27 mmol/L (22-29); Chloride 99 mmol/L (98-107); Estimated GFR-MDRD 30; Globulin 3.3 g/dL (2.4-3.5); Glucose 88 mg/dL (70-105); Lipase 20 U/L (8-78); Potassium 3.3 mmol/L (3.5-5.1); Protein, Total 7.7 g/dL (6.0-8.3); Sodium 138 mmol/L (136-145)
--- NOTE | 2018-02-16 19:11 | RAD ---
SINGLE VIEW OF THE CHEST: 02/16/18 COMPARISON: 11/25/17 HISTORY: Chest heaviness and dyspnea. FINDINGS: Single view of the chest shows a cardiomediastinal silhouette which is upper limits of normal in siz e. The pacemaker is unchanged in position. There is no evidence of consolidation, mass, or pleural e ffusion. Mild degenerative changes are seen in the spine. IMPRESSION: No evidence of acute cardiopulmonary disease. POS: [facility]
[2018-02-16] MEDS ORDERED: Aspirin 325 MG TAB ONE (19:50)
[2018-02-16] MEDS ORDERED: Nitroglycerin 2% Ointment 1 INCH/1 GM Packet ONE (19:59)
--- NOTE | 2018-02-16 20:28 | PDOC.FPRHP ---
- Allergies/Adverse Reactions Allergies Allergy/AdvReac Type Severity Reaction Status Date / Time ROMANA Inhibitors Allergy Verified 10/28/17 17:12 cefaclor [From Ceclor] Allergy Anaphylaxis Verified 10/28/17 17:12 ciprofloxacin [From Cipro] Allergy Anaphylaxis Verified 10/28/17 17:12 ciprofloxacin HCl Allergy Anaphylaxis Verified 10/28/17 17:12 [From Cipro] codeine Allergy Rash Verified 10/28/17 17:12 - Home Medications Medication Instructions Recorded Confirmed Type Carvedilol [Coreg] 6.25 mg PO BID 01/01/13 10/28/17 History Spironolactone 25 mg PO DAILY #0 tablet 01/03/13 10/28/17 Rx Atorvastatin Calcium 80 mg PO DAILY 02/05/16 10/28/17 History busPIRone HCl [Buspirone HCl] 15 mg PO TID 02/05/16 10/28/17 History FLUoxetine HCl [Prozac] 40 mg PO DAILY 08/23/17 10/28/17 History Furosemide [Lasix] 40 mg PO DAILY #7 tab 08/24/17 10/28/17 Rx Sacubitril/Valsartan [Entresto 24 1 each PO BID 09/07/17 10/28/17 History mg-26 mg Tablet] metFORMIN [Glucophage] 500 mg PO BID-WM 09/07/17 10/28/17 History - History PMHx: PSHx: FHx: Social: - Vital signs BP: 144/87 HR: 66 RR: 18 Tmax: 98.6 Pox: 97% on RA Wt: 67kg FMR H&P: Results - Labs Result Diagrams: 02/16/18 17:56 02/16/18 17:56 Lab results: WBC 11.8 thou/uL (4.8-10.8) H 02/16/18 17:56 Hgb 12.4 g/dL (12.0-16.0) 02/16/18 17:56 Hct 37.2 % (36.0-47.0) 02/16/18 17:56 MCV 90.5 fL (78.0-98.0) 02/16/18 17:56 Plt Count 269 thou/uL (130-400) 02/16/18 17:56 Neutrophils % 73.4 % (42.0-75.0) 02/16/18 17:56 Sodium 138 mmol/L (136-145) 02/16/18 17:56 Potassium 3.3 mmol/L (3.5-5.1) L 02/16/18 17:56 Chloride 99 mmol/L (98-107) 02/16/18 17:56 Carbon Dioxide 27 mmol/L (22-29) 02/16/18 17:56 BUN 35 mg/dL (9.8-20.1) H 02/16/18 17:56 Creatinine 1.72 mg/dL (0.6-1.1) H 02/16/18 17:56 Glucose 88 mg/dL (70-105) 02/16/18 17:56 Calcium 9.9 mg/dL (7.8-10.44) 02/16/18 17:56 Total Bilirubin 0.5 mg/dL (0.2-1.2) 02/16/18 17:56 AST 15 U/L (5-34) 02/16/18 17:56 ALT 12 U/L (8-55) 02/16/18 17:56 Alkaline Phosphatase 97 U/L (40-150) 02/16/18 17:56 B-Natriuretic Peptide 36.8 pg/mL (0-100) 02/16/18 17:56 Serum Total Protein 7.7 g/dL (6.0-8.3) 02/16/18 17:56 Albumin 4.4 g/dL (3.5-5.0) 02/16/18 17:56 Lipase 20 U/L (8-78) 02/16/18 17:56 FMR H&P: Upper Level - Plan Date/Time: 02/16/182025 I, [], have evaluated this patient and agree with findings/plan as outlined by communications marketing intern resident. Pertinent changes/additions are listed here.
[2018-02-16 21:44] LABS: Troponin I 0.018 ng/mL (< 0.028)
[2018-02-17 00:19] LABS: Troponin I Less than 0.010 ng/mL (< 0.028)
--- NOTE | 2018-02-17 04:19 | SS ---
DATE OF ADMISSION: 02/16/2018 DATE OF DISCHARGE: 02/17/2018 CHIEF COMPLAINT: Shortness of breath plus chest pain for 2 weeks. HISTORY OF PRESENT ILLNESS: This is a 58-year-old female presenting to the ER for 2 weeks of substernal chest pain that does not radiate. The pain is described as a dull ache. There are no aggravating symptoms nor are there any alleviating symptoms. The pain is not positional and not able to be reproduced on palpation. The patient denies any lightheadedness or syncope. The patient does complain of having some shortness of breath on and off, especially with exertion for the last couple weeks. She is accompanied by her . He was more concerned with the chronic weight loss and nausea, vomiting, and inability to tolerate p.o. at times. The patient is also concerned with a right upper quadrant pain, has been extensively worked up in the inpatient and outpatient setting. The pain has been present for almost 2 years. PAST MEDICAL HISTORY: 1. Hypertension. 2. Hyperlipidemia. 3. Type 2 diabetes. 4. Heart failure with preserved ejection fraction. 5. Nonsustained ventricular tachycardia, status post AICD placement in 2012. 6. Anxiety. 7. Depression. PAST SURGICAL HISTORY: 1. Tonsillectomy. 2. AICD placement in July 2012. 3. Hysteroscopy. FAMILY HISTORY: Significant for CHF in father and a breast cancer in aunt. SOCIAL HISTORY: The patient is and lives with her . 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 She quit smoking 31 years ago. Occasional alcohol use. No drug use. ADMISSION MEDICATIONS: 1. Carvedilol 6.25 mg p.o. b.i.d. 2. Spironolactone 25 mg p.o. daily. 3. Atorvastatin 80 mg p.o. daily. 4. Buspirone 15 mg p.o. t.i.d. 5. Fluoxetine 40 mg p.o. daily. 6. Lasix 40 mg p.o. daily. 7. Metformin 500 mg p.o. b.i.d. REVIEW OF SYSTEMS: GENERAL: The patient reports weight loss and decreased appetite. She denies fatigue. Denies fevers or chills. EYES: Denies vision changes. Denies eye pain. ENT: Denies nasal congestion. Denies rhinorrhea. RESPIRATIONS: Endorses some shortness of breath with exertion. Denies cough congestion. CARDIOVASCULAR: Endorses chest pain. Denies palpitations. Denies edema. GI: Denies constipation. Endorses nausea. Denies diarrhea. : Denies incontinence. Denies dysuria. SKIN: Denies rashes. Denies lesions. MUSCULOSKELETAL: Denies back pain. Denies muscle pain. NEUROLOGIC: Denies numbness. Denies weakness. PSYCHOLOGICAL: Denies anxiety. Denies depression. PHYSICAL EXAMINATION: GENERAL: No acute distress. Awake, A and O x3. Well developed. HEENT: Normocephalic, atraumatic. Pupils equally round and reactive to light and accommodation. Moist mucous membranes. NECK: Supple with no lymphadenopathy. CHEST: Nontender to palpation. No lesions or skin rashes noted. HEART: Regular rate and rhythm. Normal S1 and S2. LUNGS: Clear to auscultation bilaterally with no rales, rhonchi, or wheezing. ABDOMEN: Soft, nontender. Bowel sounds are present. MUSCULOSKELETAL: Normal . Normal tone. NEUROLOGICAL: Cranial nerves II through XII intact. SKIN: Shows no rashes or lesions. PSYCHIATRIC: Normal mood and affect. HOSPITAL COURSE: The patient was given Nitro-Bid 1 inch, aspirin 325 mg, and 1 L of normal saline while in ED. There was concern for ACS even though she has already been worked up within the last year. She has had a recent negative stress test. She has also been to a head machinist within the last month and has had a recent transthoracic echocardiogram showing a stable ejection fraction. Her chest x-ray on admission was negative for any acute cardiopulmonary process. Her EKG shows occasional PVCs with bigeminy and a QTc of 519 ms. Compared to previous EKG, this is normal. The patient's chest pain resolved while in the ED. Her troponins were negative x3 and vital signs remained normal and stable. DISCHARGE DIAGNOSIS: Atypical chest pain, rule out acute coronary syndrome. DISCHARGE MEDICATIONS: See the admission medication list. DISPOSITION: Stable. DISCHARGE INSTRUCTIONS: 1. Location: Home. 2. Diet: Heart healthy. 3. Activity: As tolerated. 4. Followup with Dr. Thomas in 3 to 7 days. Job ID: [id number]
--- NOTE | 2018-02-19 18:30 | EKG ---
Test Reason : Blood Pressure : / mmHG Vent. Rate : 086 BPM Atrial Rate : 086 BPM P-R Int : 162 ms QRS Dur : 100 ms QT Int : 434 ms P-R-T Axes : 046 -26 050 degrees QTc Int : 519 ms Sinus rhythm with frequent Premature ventricular complexes in a pattern of bigeminy Possible Left atrial enlargement Prolonged QT Abnormal ECG Confirmed by THAO WHITLEY DO ([id number]), dictionary editor VIANEY RUSHING ([id number]) on 02/19/2018 6:29:23 PM Referred By: Confirmed By:THAO WHITLEY DO
== END 2018-02-17 00:35 | disposition home or self-care (01) ==
LOC: ERS 17:31
DX: R07.9 Chest pain, unspecified (principal); I11.0 Hypertensive heart disease with heart failure; I50.9 Heart failure, unspecified; F41.9 Anxiety disorder, unspecified; Z87.891 Personal history of nicotine dependence; E78.5 Hyperlipidemia, unspecified; E11.9 Type 2 diabetes mellitus without complications; Z79.899 Other long term (current) drug therapy; Z79.84 Long term (current) use of oral hypoglycemic drugs
CPT/HCPCS: 36415; 71045; 80053; 83690; 83880; 84484; 85025; 93005; 96360; 96361

== ENCOUNTER 2018-05-27 10:00 | Emergency (ER) | payer BC, OTHER ==
--- NOTE | 2018-05-27 11:08 | CT ---
FHead CT without contrast 05/27/2018: COMPARISON: 11/25/2017 HISTORY: Fall, trauma, pain TECHNIQUE: Axial CT imaging at 5 mm intervals from vertex through skull base without contrast FINDINGS: Imaged paranasal sinuses and mastoid air cells are well-aerated. No displaced calvarial fra cture. There is a focal area of posterior scalp swelling in the right frontal region. No intracranial hemorrhage, midline shift, mass effect, or ventricular enlargement. IMPRESSION: Posterior scalp swelling near the vertex on the right. No associated fracture or intracra nial hemorrhage.
--- NOTE | 2018-05-27 11:12 | CT ---
FExam: CT cervical spine without contrast HISTORY: Trauma. Pain. COMPARISON: None FINDINGS: No craniocervical dissociation. Appropriate alignment of the lateral masses of C1 and C2. Intact odon toid process Appropriate alignment of the facets. Soft tissue neck structures: No mass, lymphadenopathy or hematoma. No prevertebral soft tissue swelli ng. Upper mediastinum and lung apices: Unremarkable Central spinal canal: Neural foramina and central spinal canal are patent. Evaluation is limited by t echnique Vertebral bodies: Cervical spine vertebral body height is maintained. No fracture. Straightening of normal cervical lordosis may be due to patient position, muscle spasm or cervical co llar. If there is concern for ligamentous injury, consider MRI IMPRESSION: 1. No cervical spine fracture 2. Straightening of normal cervical lordosis as above.
== END 2018-05-27 11:27 | disposition home or self-care (01) ==
LOC: ERS 10:00
DX: S16.1XXA Strain of muscle, fascia and tendon at neck level, initial encounter (principal); S09.90XA Unspecified injury of head, initial encounter; E11.9 Type 2 diabetes mellitus without complications; I11.0 Hypertensive heart disease with heart failure; I50.9 Heart failure, unspecified; E78.5 Hyperlipidemia, unspecified; F41.9 Anxiety disorder, unspecified; Z87.891 Personal history of nicotine dependence; Z79.899 Other long term (current) drug therapy; Z79.84 Long term (current) use of oral hypoglycemic drugs; W19.XXXA Unspecified fall, initial encounter; Y93.02 Activity, running
CPT/HCPCS: 70450; 72125

== ENCOUNTER 2019-02-24 03:09 | Emergency (ER) | payer BC ==
[2019-02-24] MEDS ORDERED: Morphine 4 MG/ML VIAL ONE ×2 (04:56→05:54)
[2019-02-24] MEDS ORDERED: methylPREDNISolone Sod Succ/PF 125 MG/2 ML VIAL ONE (05:54)
[2019-02-24] MEDS ORDERED: Ketorolac Tromethamine 30 MG/ML VIAL ONE (06:05)
--- NOTE | 2019-02-24 09:17 | RAD ---
RIGHT ELBOW THREE VIEWS: HISTORY: Elbow pain that began one week ago. COMPARISON: None. FINDINGS: Three views of the right elbow show no evidence of acute fracture or dislocation. No degenerative vonnie nges are seen. No elbow effusion is present. IMPRESSION: No evidence of acute osseous abnormality. POS: [facility]
--- NOTE | 2019-02-24 09:19 | RAD ---
RIGHT SHOULDER THREE VIEWS: HISTORY: Right arm pain that began a week ago. FINDINGS: Three views of the right shoulder show no evidence of acute fracture or dislocation. Ossification is seen along the rotator cuff tendon. No degenerative changes are seen. IMPRESSION: 1. No evidence of acute osseous abnormality. 2. Calcific tendinopathy of the rotator cuff tendon. POS: [facility]
== END 2019-02-24 07:10 | disposition home or self-care (01) ==
LOC: ERS 03:09
DX: M25.511 Pain in right shoulder (principal); I13.0 Hypertensive heart and chronic kidney disease with heart failure and stage 1 through stage 4 chronic kidney disease, or unspecified chronic kidney disease; I50.9 Heart failure, unspecified; N18.9 Chronic kidney disease, unspecified; E11.22 Type 2 diabetes mellitus with diabetic chronic kidney disease; I49.9 Cardiac arrhythmia, unspecified; F41.9 Anxiety disorder, unspecified; Z87.891 Personal history of nicotine dependence; Z79.84 Long term (current) use of oral hypoglycemic drugs; Z79.891 Long term (current) use of opiate analgesic; Z79.899 Other long term (current) drug therapy
CPT/HCPCS: 93005; 96361; 96372; 96374; 96375; J1885; J2270; J2930

== ENCOUNTER 2019-02-26 11:27 | Emergency (ER) | payer BC ==
[2019-02-26] MEDS ORDERED: Morphine 4 MG/ML VIAL ONE (12:16)
[2019-02-26] MEDS ORDERED: Ketorolac Tromethamine 30 MG/ML VIAL ONE (12:16)
== END 2019-02-26 13:00 | disposition home or self-care (01) ==
LOC: ERS 11:27
DX: M25.511 Pain in right shoulder (principal); E11.9 Type 2 diabetes mellitus without complications; I11.0 Hypertensive heart disease with heart failure; I50.9 Heart failure, unspecified; E78.5 Hyperlipidemia, unspecified; I49.9 Cardiac arrhythmia, unspecified; F41.9 Anxiety disorder, unspecified; Z87.891 Personal history of nicotine dependence; Z79.899 Other long term (current) drug therapy; Z79.84 Long term (current) use of oral hypoglycemic drugs; Z79.891 Long term (current) use of opiate analgesic
CPT/HCPCS: 96374; 96375; J1885; J2270

== ENCOUNTER 2019-05-02 14:48 | Outpatient (CLI) | payer BC ==
--- NOTE | 2019-05-02 15:36 | RAD ---
EXAM: ABDOMEN ONE VIEW: 05/02/19 HISTORY: Hyperparathyroidism, kidney failure. COMPARISON: None. FINDINGS: Moderate solid fecal material in the colon. No evidence for large or small bowel obstruction. Calcifi ed phleboliths in the pelvis. No overt renal calculus or obstruction. IMPRESSION: Unremarkable abdomen one view. Lumbar spondylosis. Moderate fecal material in the colon. POS: [facility]
--- NOTE | 2019-05-02 15:41 | BD ---
Exam: DEXA Bone Density 05/02/19 HISTORY: Osteoporosis screening. COMPARISON: None. FINDINGS: Lumbar Spine: BMD (g/cm2) T-SCORE Z-SCORE L1 0.880 -1.0 0.2 L2 0.944 -0.8 0.6 L3 1.056 -0.3 1.1 L4 0.935 -1.1 0.3 L1-L4 0.957 -0.8 0.5 Left Femoral Neck: 0.716 -1.2 -0.1 Total Left Femur: -.908 -0.3 0.5 WHO classification: Osteopenia. Ten year fracture risk: Major osteoporotic fracture: 3.8%. Hip fracture: 0.3%. Impression: Osteopenia with fracture risk as above. POS: [facility]
== END 2019-05-02 14:49 | disposition home or self-care (01) ==
LOC: BICMAMMO 14:48
PROVIDERS: ATTEND Internal Medicine Rheumatology
DX: M81.0 Age-related osteoporosis without current pathological fracture (principal); E21.3 Hyperparathyroidism, unspecified; M47.816 Spondylosis without myelopathy or radiculopathy, lumbar region; M85.89 Other specified disorders of bone density and structure, multiple sites
CPT/HCPCS: 74018; 77080

== ENCOUNTER 2019-05-19 07:54 | Outpatient (CLI) | payer BC ==
--- NOTE | 2019-05-19 12:59 | NM ---
RADIONUCLIDE PARATHYROID SCAN WITH PLANAR AND SPECT-CT IMAGES: HISTORY: Hyperparathyroidism, unspecified RADIOPHARMACEUTICAL:26mCi technetium 99m-sestamibi injected intravenously FINDINGS: There is physiologic uptake in the salivary glands and thyroid gland. No abnormal areas of tracer localization are seen in the neck or chest. IMPRESSION: No scintigraphic evidence of parathyroid adenoma
== END 2019-05-19 07:55 | disposition home or self-care (01) ==
LOC: NM 07:54
PROVIDERS: ATTEND Internal Medicine Rheumatology
DX: E21.3 Hyperparathyroidism, unspecified (principal); M81.0 Age-related osteoporosis without current pathological fracture
CPT/HCPCS: 78072; A9500

== ENCOUNTER 2019-11-13 17:17 | Inpatient (IN) | payer BC, OTHER ==
[2019-11-13] MEDS ORDERED: Ondansetron PF 4 MG/2 ML Vial ONE ×2 (18:18→19:51)
[2019-11-13 18:47] LABS: #Basophils 0.1 thou/uL (0.0-0.2); #Eosinphils 0.1 thou/uL (0.0-0.7); #Lymphocytes 2.2 thou/uL (1.20-3.40); #Monocytes 0.5 thou/uL (0.11-0.59); %Eosinophils 0.9 % (0.0-10.0); %Lymphocytes 25.3 % (21.0-51.0); %Monocytes 5.4 % (0.0-10.0); %Neutrophils 67.4 % (42.0-75.0); Hemoglobin 14.3 g/dL (12.0-16.0); Mean Corpuscular Hemoglobin 33.3 pg (27.0-31.0); Mean Corpuscular Volume 97.9 fL (78.0-98.0); Platelet Count 233 thou/uL (130-400); RBC Distribution Width 11.1 % (11.5-14.5); Red Blood Cell (RBC) Count 4.29 mill/uL (4.20-5.40); White Blood Cell (WBC) Count 8.9 thou/uL (4.8-10.8)
--- NOTE | 2019-11-13 18:56 | RAD ---
PORTABLE CHEST: Date: 11-13-2019 PROVIDED CLINICAL HISTORY: Shortness of breath FINDINGS: Comparison 02-16-2018. Cardiac and mediastinal silhouette is within normal limits. Left subclavian cardiac pacing device is noted with clips overlying the expected locations of RA and RV. No focal consolidation, pleural fluid , or pneumothorax apparent. IMPRESSION: No evidence for an acute cardiopulmonary process. POS: [facility]
[2019-11-13 19:07] LABS: ALT (SGPT) 91 U/L (8-55); AST (SGOT) 58 U/L (5-34); Alkaline Phosphatase 101 U/L (40-110); Anion Gap 26 mmol/L (10-20); BUN (Urea Nitrogen) 74 mg/dL (9.8-20.1); Bilirubin, Total 0.6 mg/dL (0.2-1.2); Calc. Creatinine Clearance 0 mL/min (70-130); Calcium 9.1 mg/dL (7.8-10.44); Carbon Dioxide 15 mmol/L (22-29); Chloride 99 mmol/L (98-107); Estimated GFR-MDRD 3; Globulin 2.6 g/dL (2.4-3.5); Lipase 39 U/L (8-78); Magnesium 1.8 mg/dL (1.6-2.6); Potassium 5.8 mmol/L (3.5-5.1); Protein, Total 6.6 g/dL (6.0-8.3); Sodium 134 mmol/L (136-145)
[2019-11-13 19:16] LABS: Glucose 48 mg/dL (70-105)
[2019-11-13] MEDS ORDERED: Dextrose 50% Abboject 50 ML SYRINGE ONE (19:21)
[2019-11-13 19:44] LABS: CKMB 1.5 ng/mL (0-6.6)
[2019-11-13] MEDS ORDERED: Calcium Chloride 1 GM/10 ML Abboject SYRINGE ONE (19:51)
--- NOTE | 2019-11-13 19:53 | PDOC.FPRHP ---
- History of Present Illness Chief Complaint: Weakness History of Present Illness: Ms Whyte is a 59yo with pmh of CKD, HFrEF, DMII presents with weakness. Reports being seen today in clinic and instructed to come to ED for evaluation. Nonbloody diarrhea daily >10x per day for last month. No recent antibiotics, travel, sick contacts. Hasn't eaten in 3 days. Last time she urinated was yesterday, small amount. ED Course: 1L LR, Calcium chloride 100mg, zofran 4mg, 2 amps D50 - Allergies/Adverse Reactions Allergies Allergy/AdvReac Type Severity Reaction Status Date / Time ROMANA Inhibitors Allergy Verified 11/14/19 01:07 cefaclor [From Ceclor] Allergy Anaphylaxis Verified 11/14/19 01:07 ciprofloxacin [From Cipro] Allergy Anaphylaxis Verified 11/14/19 01:07 ciprofloxacin HCl Allergy Anaphylaxis Verified 11/14/19 01:07 [From Cipro] codeine Allergy Rash Verified 11/14/19 01:07 - Home Medications Medication Instructions Recorded Confirmed Type Carvedilol [Coreg] 2 tab PO TID 01/01/13 11/13/19 History Atorvastatin Calcium 80 mg PO DAILY 02/05/16 11/13/19 History busPIRone HCl [Buspirone HCl] 15 mg PO BID 02/05/16 11/13/19 History metFORMIN [Glucophage] 500 mg PO BID 09/07/17 11/13/19 History Colchicine [Colcrys] 0.6 mg PO BID 11/13/19 11/13/19 History DULoxetine [Cymbalta] 60 mg PO DAILY 11/13/19 11/13/19 History Furosemide [Lasix] 40 mg PO BID 11/13/19 11/13/19 History - History PMHx: HFrEF ([employer]- Dr Wooten), CKD, DMII, HLD, HTN PSHx: AICD placement FHx: non-contributory Social: Former smoker, quit 30years ago- smoked 26yrs 1.5ppd. Drank daily 6oz glass of wine at night until 6wks ago. Denies drug use. - Review of Systems General: reports: fatigue. denies: fever/chills Eyes: denies: eye pain, vision changes ENT: denies: nasal congestion, rhinorrhea Respiratory: denies: cough, congestion, shortness of breath Cardiovascular: denies: chest pain, edema Gastrointestinal: reports: nausea, vomiting, diarrhea. denies: abdominal pain Genitourinary: reports: other (decreased urination). denies: dysuria Skin: denies: rashes, lesions Musculoskeletal: denies: swelling Neurological: reports: weakness, other (dizziness, lightheadedness) Psychological: denies: depression - Vital signs BP: 163/77 HR: 72 RR: 18 Tmax:98F Pox: 100% on RA - Physical Exam Constitutional: NAD, awake, alert and oriented, well developed HEENT: normocephalic and atraumatic, no scleral icterus, grossly normal vision, grossly normal hearing -HEENT: dry MM Neck: supple, trachea midline Heart: RRR, normal S1/S2 Lungs: CTAB, no respiratory distress Abdomen: soft, non-tender Musculoskeletal: normal structure, normal tone Neurological: no focal deficit, CN II-XII intact Skin: no rash/lesions, no jaundice Psychiatric: normal mood and affect, intact recent and remote memory FMR H&P: Results - Labs Result Diagrams: 11/13/19 18:30 11/14/19 00:37 Lab results: WBC 8.9 thou/uL (4.8-10.8) 11/13/19 18:30 Hgb 14.3 g/dL (12.0-16.0) 11/13/19 18:30 Hct 42.1 % (36.0-47.0) 11/13/19 18:30 MCV 97.9 fL (78.0-98.0) 11/13/19 18:30 Plt Count 233 thou/uL (130-400) 11/13/19 18:30 Neutrophils % 67.4 % (42.0-75.0) 11/13/19 18:30 Sodium 134 mmol/L (136-145) L 11/13/19 18:30 Potassium 5.8 mmol/L (3.5-5.1) H 11/13/19 18:30 Chloride 99 mmol/L (98-107) 11/13/19 18:30 Carbon Dioxide 15 mmol/L (22-29) L 11/13/19 18:30 BUN 74 mg/dL (9.8-20.1) H 11/13/19 18:30 Creatinine 11.94 mg/dL (0.6-1.1) H 11/13/19 18:30 Glucose 48 mg/dL (70-105) L* 11/13/19 18:30 Calcium 9.1 mg/dL (7.8-10.44) 11/13/19 18:30 Total Bilirubin 0.6 mg/dL (0.2-1.2) 11/13/19 18:30 AST 58 U/L (5-34) H 11/13/19 18:30 ALT 91 U/L (8-55) H 11/13/19 18:30 Alkaline Phosphatase 101 U/L (40-110) 11/13/19 18:30 CK-MB (CK-2) 1.5 ng/mL (0-6.6) 11/13/19 18:30 B-Natriuretic Peptide 294.7 pg/mL (0-100) H 11/13/19 18:30 Serum Total Protein 6.6 g/dL (6.0-8.3) 11/13/19 18:30 Albumin 4.0 g/dL (3.5-5.0) 11/13/19 18:30 Lipase 39 U/L (8-78) 11/13/19 18:30 Additional comment: CXR: - EKG Interpretation EKG: reviewed, new widened QRS - Radiology Interpretation Chest x-ray Status: report reviewed by me (no acute cardiopulmary process) FMR H&P: A/P - Plan #AURELIO on CKD 2/2 dehydration -BUN/Cr 74/11.94, K 5.8, previous Cr 1.72 -1L LR bolus given in ED, continued on maintenance IVF -nephrology, Dr Auguste, consulted from ED, appreciate recs -q4h BMP, lactic acid, procal -held metformin, lasix -avoid nephrotoxic agents #diarrhea -no recent travel, sick contacts or changes in diet -pending stool studies #transaminitis -AST/ALT 58/91, likely 2/2 dehydration -will continue to monitor #indeterminate trop -0.05, will trend #hypoglycemia -BG 48, given 2 amps D50 in ED -held metformin, added SSI -BG checks q4h, consider spacing out if BG stabilize #abnormal ekg -widened QRS, new -calcium given in ED -admit to tele, will monitor, repeat ekg in am #HFrEF - BNP 295 - has defibrillator, 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 She was seen in clinic for 1mo of nonblood diarrhea and decreased appetite. She has had 2 days of weakness, n/v. PE: General: NAD, appears weak and fatigued CV: RRR, no murmur Pulm: CTA b/l Abdomen: Nontender. BS + Extremities: No edema Skin: No rash or lesions A/P: New onset ESRD BUN: 87, Creatinine: 11.94. GFR 3. Ratio of 7. K 5.8. Creatinine previously 1.72 . Currently oliguric. Follows with Dr Auguste. Consulted from ED. Plan for LR IVF overnight with q4h BMP. Avoid nephrotoxic medications, d/c metformin. Strict I&O. Ordered lactic acid and procal. Admit to tele. New onset widened QRS -likely 2/2 hyperkalemia. Given CaCl in ED. Monitor K closely with q4h BMP Indeterminant Troponin -0.050. Continue to trend. Hypoglycemia with Hx of DMII on Metformin. -s/p 2 Amps D50 in ED. Q4H glucose checks. Will start on D5 if indicated. Will also check A1c, chart review she has not had one checked since 2018. D/c Metformin due to ESRD. Diarrhea -Ordered stool studies. I, Sherrill Gould, have evaluated this patient and agree with findings/plan as outlined by ad operations intern resident. Pertinent changes/additions are listed here. Addendum - Attending - Attending Attestation Date/Time: 11/13/19 2829 I personally evaluated the patient and discussed the management with Dr. Riley/Luis Fernando. I agree with the History, Examination, Assessment and Plan documented above with any addition or exceptions noted below. 59-year-old female presented with chief complaint of generalized weakness. Sent to ER by PCP. Past mental history remarkable for CKD 3, hypertension, heart failure with reduced ejection fraction, and DM2. in ER patient found to have elevated potassium, creatinine, and BUN. Nephrology was consulted from the ER. Did not recommend dialysis at that time but recommended starting IV fluids. Patient reports history of diarrhea for the past month, decreased by mouth intake, decreased urinary output with last void over 24 hours ago, and generalized weakness during this entire time. Jam was unremarkable. Labs pertinent for elevated potassium at 5.8, elevated creatinine of 11, BUN of 70, and glucose in 40s. her troponin and BNP were also slightly elevated. EKG was remarkable for widened QRS complexes. Admit inpatient telemetry for acute on chronic kidney disease. At this time I suspect that her kidney injury was initially prerenal due to volume depletion from her recent persistent diarrhea and now may have a component of acute tubular necrosis. Nephrology has been consult and we will await recommendations. Continue to monitor BMP. continue IV fluids and monitor urine output closely. Stool studies have been ordered to evaluate her diarrhea. telemetry monitoring due to elevated potassium.
[2019-11-13] MEDS ORDERED: Ondansetron ODT 4 MG TAB PO PRN (21:11)
[2019-11-13] MEDS ORDERED: Acetaminophen 650 MG Suppository PR PRN (21:11)
[2019-11-13 23:19] LABS: Troponin I 0.034 ng/mL (< 0.028)
[2019-11-13 23:23] LABS: Anion Gap 26 mmol/L (10-20); BUN (Urea Nitrogen) 77 mg/dL (9.8-20.1); Calc. Creatinine Clearance 0 mL/min (70-130); Calcium 9.3 mg/dL (7.8-10.44); Carbon Dioxide 12 mmol/L (22-29); Chloride 99 mmol/L (98-107); Estimated GFR-MDRD 3; Glucose 436 mg/dL (70-105); Potassium 5.3 mmol/L (3.5-5.1); Sodium 132 mmol/L (136-145)
[2019-11-13 23:31] LABS: Hemoglobin A1c 5.3 % (4.0-6.0)
[2019-11-13 23:35] LABS: Lactic Acid 3.9 mmol/L (0.5-2.2)
[2019-11-14 01:09] LABS: Troponin I 0.044 ng/mL (< 0.028)
[2019-11-14 01:11] LABS: Anion Gap 23 mmol/L (10-20); BUN (Urea Nitrogen) 77 mg/dL (9.8-20.1); Calc. Creatinine Clearance 0 mL/min (70-130); Calcium 9.2 mg/dL (7.8-10.44); Carbon Dioxide 14 mmol/L (22-29); Chloride 101 mmol/L (98-107); Estimated GFR-MDRD 3; Glucose 289 mg/dL (70-105); Potassium 5.1 mmol/L (3.5-5.1); Sodium 133 mmol/L (136-145)
[2019-11-14] MEDS ORDERED: Lactated Ringer's 1,000 ML IV SCH (02:30)
[2019-11-14] MEDS ORDERED: Dextrose 5% in Water 1,000 ML IV PRN (03:56)
[2019-11-14] MEDS ORDERED: HumaLOG 300 UNITS/3 ML VIAL SC PRN ×2 (03:56)
[2019-11-14] MEDS ORDERED: Dextrose 50% Abboject 50 ML SYRINGE SLOW IVP PRN (03:56)
[2019-11-14 05:24] LABS: ALT (SGPT) 81 U/L (8-55); AST (SGOT) 50 U/L (5-34); Albumin 3.8 g/dL (3.5-5.0); Alkaline Phosphatase 93 U/L (40-110); Bilirubin, Direct 0.3 mg/dL (0.1-0.3); Bilirubin, Total 0.6 mg/dL (0.2-1.2); Lactic Acid 2.5 mmol/L (0.5-2.2)
[2019-11-14 05:33] LABS: Anion Gap 24 mmol/L (10-20); BUN (Urea Nitrogen) 78 mg/dL (9.8-20.1); Calc. Creatinine Clearance 5 mL/min (70-130); Calcium 9.1 mg/dL (7.8-10.44); Carbon Dioxide 13 mmol/L (22-29); Chloride 101 mmol/L (98-107); Estimated GFR-MDRD 3; Glucose 80 mg/dL (70-105); Magnesium 1.7 mg/dL (1.6-2.6); Potassium 5.2 mmol/L (3.5-5.1); Sodium 133 mmol/L (136-145)
[2019-11-14] MEDS: Ondansetron PF 4 MG/2 ML Vial IVP PRN ×3 (07:35→21:32)
[2019-11-14] MEDS: Acetaminophen 325 MG TAB PO PRN ×2 (07:49→23:10)
--- NOTE | 2019-11-14 08:04 | PDOC.FM ---
- Subjective Subjective: Patient complains of continued weakness overnight. Also states she vomited multiple times, described as bilious. Has not urinated. Was able to have 1 BM which was sent for further studies. - Objective MAR Reviewed: Yes Vital Signs & Weight: Vital Signs (12 hours) Temp Pulse Resp BP Pulse Ox 11/14/19 04:00 98.4 F 61 20 122/58 L 97 11/13/19 23:30 68 14 127/58 L 100 Weight Weight 63.5 kg I&O: 11/13/19 11/14/19 11/15/19 06:59 06:59 06:59 Intake Total 120 Output Total 150 Balance -30 Result Diagrams: 11/13/19 18:30 11/14/19 09:25 Phys Exam - Physical Examination Constitutional: NAD HEENT: moist MMs, sclera anicteric Neck: supple, full ROM Respiratory: clear to auscultation bilateral Cardiovascular: RRR, no significant murmur Gastrointestinal: soft, no distention, positive bowel sounds Musculoskeletal: pulses present Neurological: normal sensation, moves all 4 limbs Psychiatric: normal affect, A&O x 3 Skin: no rash Dx/Plan (1) Acute kidney injury superimposed on CKD Code(s): N17.9 - ACUTE KIDNEY FAILURE, UNSPECIFIED; N18.9 - CHRONIC KIDNEY DISEASE, UNSPECIFIED Status: Acute (2) Diabetes mellitus, type II Status: Chronic Qualifiers: Diabetes mellitus skilled nursing insulin use: without skilled nursing use Diabetes mellitus complication status: with hypoglycemia Diabetes mellitus complication detail: without coma Qualified Code(s): E11.649 - Type 2 diabetes mellitus with hypoglycemia without coma (3) HTN (hypertension) Code(s): I10 - ESSENTIAL (PRIMARY) HYPERTENSION Status: Chronic Qualifiers: Hypertension type: essential hypertension Qualified Code(s): I10 - Essential (primary) hypertension - Plan Plan: Patient is a 59 yo female who presents with hypoglycemia and is found to have AURELIO: #AURELIO on CKD -likely 2/2 dehydration vs diuretic use -admission BUN/Cr 74/11.94, K 5.8, previous Cr 1.72 -Cr trending up, 12.29 this AM -1L LR bolus given in ED, continued on maintenance IVF NS @ 125 ml/hr -Consult Nephrology, Dr Auguste, appreciate recs -renal ultrasound normal -checking urine studies -no need for emergent dialysis at this time, will continue to monitor -monitor BMP -lactic acid 3.9 > 2.5, procal 0.29 -held metformin, lasix -avoid nephrotoxic agents #Diarrhea -persistent for 1 month -no recent travel, sick contacts or changes in diet -pending stool studies #Transaminitis -AST/ALT 58/91, likely 2/2 dehydration -will continue to monitor #Indeterminate trop -trend trop 0.05 > 0.034 > 0.044 -likely due to demand ischemia #Hypoglycemia -BG 48, given 2 amps D50 in ED -held metformin, added SSI -BG checks q4h, consider spacing out if BG stabilize #Abnormal ekg -widened QRS, new -calcium given in ED -admit to tele, will monitor, repeat ekg this morning #HFrEF - BNP 295 - 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 Continue IVF hydration, pending stool studies. Anticipate discharge in >48hrs. Addendum - Attending - Attending Attestation Date/Time: 11/14/19 0525 I personally evaluated the patient and discussed the management with Dr. Espinosa. I agree with the History, Examination, Assessment and Plan documented above with any addition or exceptions noted below.
--- NOTE | 2019-11-14 09:22 | ULT ---
Exam: Bilateral renal ultrasound HISTORY: Chronic renal failure COMPARISON: None FINDINGS: Right kidney: Normal cortical echotexture. No hydronephrosis. Right kidney measurements: 10.5 x 5.2 x 5.2 cm. Left kidney: Normal cortical echotexture. No hydronephrosis Left kidney measurements 5.3 x 5.1 x 9.6 cm. Urinary bladder: Cannot be assessed due to recent voiding IMPRESSION: No hydronephrosis.
[2019-11-14] MEDS: DULoxetine 60 MG CAP PO SCH (09:46)
[2019-11-14] MEDS: Sodium Bicarbonate Tab 325 MG TAB PO SCH ×3 (09:47→21:24)
[2019-11-14] MEDS: Sodium Chloride 0.9% 1,000 ML IV SCH ×2 (09:47→17:47)
[2019-11-14] MEDS: Carvedilol 6.25 MG TAB PO SCH ×3 (09:48→21:23)
[2019-11-14 10:10] LABS: Anion Gap 24 mmol/L (10-20); BUN (Urea Nitrogen) 81 mg/dL (9.8-20.1); Calc. Creatinine Clearance 5 mL/min (70-130); Calcium 8.7 mg/dL (7.8-10.44); Carbon Dioxide 17 mmol/L (22-29); Chloride 100 mmol/L (98-107); Estimated GFR-MDRD 3; Potassium 6.1 mmol/L (3.5-5.1); Sodium 135 mmol/L (136-145)
--- NOTE | 2019-11-14 10:27 | CON ---
DATE OF CONSULTATION: 11/14/2019 HISTORY OF PRESENT ILLNESS: Ms. Whyte is a 59-year-old white female, who was seen by PCP for generalized weakness. She was complaining of persistent nonbloody diarrhea for the last one month. In addition, the patient was subsequently sent to the ER, where she was found to be having an acute kidney injury on top of chronic renal failure. We are now being consulted for further management of this acute kidney injury. This morning, the patient is feeling a little tired. REVIEW OF SYSTEMS: No chest pain. No shortness of breath. Positive for generalized malaise. Positive for diarrhea. Positive for nausea, but no fever. No gross hematuria. No dysuria. No urinary frequency. Occasional abdominal pain. No syncopal episode. No shortness of breath. No chest pain. No occasional joint pains. Appetite and energy level are decreased. HOME MEDICATIONS: Includes the following; 1. Carvedilol is 6.25 mg 2 tablets b.i.d. 2. Buspirone 50 mg tablet b.i.d. 3. Atorvastatin 80 mg tablet at bedtime. 4. Colchicine 0.6 mg p.o. b.i.d. 5. Duloxetine 60 mg daily. 6. Ezetimibe 10 mg tablet once a day. 7. Furosemide 40 mg tablet b.i.d. 8. Metformin 500 mg p.o. b.i.d. PAST MEDICAL HISTORY: History of idiopathic cardiomyopathy, hyperlipidemia, status post NSVT, history of pseudogout, history of inflammatory polyarthritis, hyperlipidemia, and type 2 diabetes mellitus. PAST SURGICAL HISTORY: Status post cardiac cath, status post AICD placement, status post colonoscopy, and status post tonsillectomy. SOCIAL HISTORY: The patient lives in [place]. She is , has 3 children. Smoked for 13 years one and half pack per day. One glass of wine per night, status post marijuana use as a teenager, but no IV drug use. Education, college graduate. 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 No blood transfusion. ALLERGIES: CECLOR AND CODEINE. TRAUMA: None. IMMUNIZATION: Up-to-date. HOSPITALIZATIONS: Please see past medical history. FAMILY HISTORY: No family history of ESRD. PHYSICAL EXAMINATION: VITAL SIGNS: Blood pressure is noted at 122/58, heart rate 61, respiratory rate 20, temperature 98.4, and O2 saturation 97%. GENERAL: Awake, comfortable, supine, and lethargic, not in overt distress. SKIN: Decreased turgor. HEENT: She has a pinkish conjunctivae. Anicteric sclerae. No neck mass. No carotid bruits. No JVD. CHEST: No deformities. LUNGS: Clear breath sounds. HEART: Normal sinus rhythm. No murmur. No gallops. No rubs. ABDOMEN: Globular, soft, and nontender. No masses. EXTREMITIES: No edema. No deformities. NEUROLOGICAL: Awake and oriented to 3 spheres. Moving all extremities. No tremors. No asterixis. No ataxia. Chest x-ray, no CHF. No infiltrates. LABORATORY DATA: November 14, 2019; sodium 133, potassium 5.2, chloride 101, carbon dioxide 13, BUN 78, creatinine 12.29, calcium 9.1, magnesium 1.7, lactic acid 2.5. AST 50 and ALT 81. November 13, 2019; BUN 77 and creatinine 11.86. May 02, 2019; BUN 22 and creatinine 1.72. Urinalysis pending. Renal ultrasound is pending. ASSESSMENT AND PLAN: 1. Acute kidney injury on top of her chronic renal failure-the patient has history of diarrhea intake of diuretics. She may have a superimposed hemodynamically-mediated renal dysfunction. For these reason, agree, with volume repletion with this patient. We will review the urine sediment to rule out any acute tubular necrosis. Renal ultrasound has also been ordered. I do not find any indication for any emergent hemodialysis with this patient. She is not volume overloaded and potassium is acceptable. Continue current IV hydration. Continue normal saline at 125 mL/hour. 2. Metabolic acidosis. Sodium bicarbonate tablets 650 mg p.o. one tablet t.i.d. 3. Diarrhea. Consider workup. The patient has been checked for stool cards. 4. Chronic renal failure-unclear etiology, although the possibility of chronic glomerulonephritis remains with this patient. This will depend on what the urinalysis will show. She does have history of chronic inflammatory polyarthritis. Job ID: [id number]
[2019-11-14 10:45] LABS: Glucose 55 mg/dL (70-105)
[2019-11-14] MEDS: busPIRone HCl 10 MG TAB PO SCH ×2 (11:16→21:23)
[2019-11-14] MEDS: Atorvastatin Calcium 40 MG TAB PO SCH (11:16)
[2019-11-14] MEDS: Heparin 5,000 UNITS/ML VIAL SC SCH ×2 (11:16→21:24)
[2019-11-14 15:20] LABS: Anion Gap 25 mmol/L (10-20); BUN (Urea Nitrogen) 84 mg/dL (9.8-20.1); Calc. Creatinine Clearance 5 mL/min (70-130); Calcium 8.2 mg/dL (7.8-10.44); Carbon Dioxide 14 mmol/L (22-29); Chloride 102 mmol/L (98-107); Estimated GFR-MDRD 3; Glucose 90 mg/dL (70-105); Potassium 5.6 mmol/L (3.5-5.1); Sodium 135 mmol/L (136-145)
[2019-11-14] MEDS: Dextrose 5 % And 0.9 % NaCl 1,000 ML IV SCH (17:16)
[2019-11-14 18:21] LABS: Bilirubin Negative (Negative); Blood, Urine 3+ (Negative); Clarity Turbid (Clear); Glucose, Urine (Dipstick) 70 mg/dL (Negative); Ketone, Urine Negative (Negative); Leukocyte 250 Leu/uL (Negative); Nitrite Negative (Negative); Protein, Urine (Dipstick) 600 mg/dL (Neg-Trace); RBC/HPF Greater than 50 HPF (0-3); Specific Gravity, Urine 1.014 (1.002-1.036); Squamous Epithelial 0-3 HPF (0-3); Transitional Epithelial 0-3 HPF (None Seen); Urobilinogen Normal mg/dL (Less than 2); WBC/HPF Greater than 50 HPF (0-3); pH, Urine 6.5 (5.0-9.0)
[2019-11-14 18:25] LABS: Bacteria/HPF Rare-Few HPF (None Seen)
[2019-11-14 18:38] LABS: Potassium, Urine 22.9 mmol/L
[2019-11-14 18:41] LABS: Creatinine, Urine 52.91 mg/dL (47-110)
[2019-11-15] MEDS: Dextrose 5 % And 0.9 % NaCl 1,000 ML IV SCH ×3 (02:11→20:30)
[2019-11-15 04:21] LABS: ALT (SGPT) 63 U/L (8-55); AST (SGOT) 39 U/L (5-34); Albumin 3.1 g/dL (3.5-5.0); Alkaline Phosphatase 72 U/L (40-110); Anion Gap 22 mmol/L (10-20); BUN (Urea Nitrogen) 90 mg/dL (9.8-20.1); Bilirubin, Total 0.3 mg/dL (0.2-1.2); Calc. Creatinine Clearance 5 mL/min (70-130); Calcium 7.5 mg/dL (7.8-10.44); Carbon Dioxide 14 mmol/L (22-29); Chloride 105 mmol/L (98-107); Estimated GFR-MDRD 3; Glucose 129 mg/dL (70-105); Potassium 5.6 mmol/L (3.5-5.1); Protein, Total 5.1 g/dL (6.0-8.3); Sodium 135 mmol/L (136-145)
--- NOTE | 2019-11-15 09:20 | PRG ---
DATE OF SERVICE: 11/15/2019 SERVICE: Renal Medicine. SUBJECTIVE: Ms. Whyte is a 59-year-old white female who was admitted for an acute kidney injury on top of her chronic renal failure. She was having diarrhea for the last several weeks prior to admission. She also had decreased p.o. intake. Initially, we felt that she may simply be volume depleted to explain worsening renal dysfunction. Empiric volume repletion has been given in the last 1 to 2 days; however, renal function remains unimproved. Her urine output was also significantly decreased. Renal ultrasound was done, which was said to be within normal. No evidence of obstruction or any renal masses. Urine sediment was not suggestive of prerenal azotemia - urine electrolytes were not low. In addition, even though no obvious pigmented granular cast was seen, my suspicion, she may have a superimposed acute tubular necrosis. I did have a long discussion with the patient to consider hemodialysis. She would like to think about it. The patient denies any chest pain or shortness of breath, but she does complain of generalized malaise and weakness. She also had Clostridium difficile antigen tested, and she was said to be positive for antigen. OBJECTIVE: VITAL SIGNS: Blood pressure is 109/66, heart rate 60, respiratory rate 14, temperature 98.5, O2 saturation 95% on room air. GENERAL: The patient is awake, alert, comfortable, obese, not in distress. SKIN: Adequate turgor. HEENT: She has pinkish conjunctivae. Anicteric sclerae. NECK: No neck mass. No carotid bruits. No JVD. CHEST: No deformities. LUNGS: Clear breath sounds. HEART: Normal sinus rhythm. No murmurs, gallops, or rubs. ABDOMEN: Globular, soft, nontender. No masses. EXTREMITIES: No edema. No deformities. MEDICATIONS: Medications of November 15, 2019, were reviewed. LABORATORY DATA: Laboratories of November 15, 2019; sodium 135, potassium 5.6, chloride 105, carbon dioxide 14, BUN is 90, creatinine 13.08, GFR 3 mL/minute, glucose 129, calcium 7.5, AST 39, ALT 63, albumin 3.1. Urinalysis shows protein of 600, rbc greater than 50, wbc greater than 50, bacteria is rare. ASSESSMENT AND PLAN: Acute kidney injury on top of her chronic renal failure - consider superimposed acute tubular necrosis. The patient also has decreased urine output. I had a long discussion with the patient about initiating dialysis. She would like to think it over. Her and daughter will try to get in touch with me so I could explain the clinical situation. Once they agree, we will consider referring the patient to surgery for a placement of a cuffed hemodialysis catheter, so we can initiate hemodialysis. Continue supportive care. Urine TRAP PULLER will also be ordered. Overall prognosis remains guarded. Addendum: spoke with and daughter - they have agreed with plan hemodialysis at 8:30 am. Job ID: [id number] MTDPeter
[2019-11-15 09:29] LABS: HBSAg Index 0.19 S/CO (0-0.99); Hep B Core Total Ab Non-Reactive (NonReactive); Hep B Core Total Index 0.13 S/CO (0-0.79); Hep B Surf Ag Non-Reactive S/CO (NonReactive); Hep C IgG Ab Non-Reactive (NonReactive); Hep C Index 0.07 S/CO (0-0.79)
[2019-11-15 09:32] LABS: Hep B Surf AB Reactive (NonReactive)
[2019-11-15] MEDS: Carvedilol 6.25 MG TAB PO SCH ×3 (09:39→20:25)
[2019-11-15] MEDS: DULoxetine 60 MG CAP PO SCH (09:39)
[2019-11-15] MEDS: Sodium Bicarbonate Tab 325 MG TAB PO SCH ×3 (09:39→20:26)
[2019-11-15] MEDS: busPIRone HCl 10 MG TAB PO SCH ×2 (09:39→20:25)
[2019-11-15] MEDS: Atorvastatin Calcium 40 MG TAB PO SCH (09:40)
[2019-11-15] MEDS: Heparin 5,000 UNITS/ML VIAL SC SCH ×2 (09:40→20:26)
--- NOTE | 2019-11-15 09:43 | PDOC.FM ---
- Subjective Subjective: Patient continues to feel weak and nauseous. States she was able to keep some ice chips down yesterday but still felt urge to vomit. She had a guzmán placed yesterday, has put out 135 mL of urine since placement. Urine studies sent. Dr. Auguste had discussion with patient this morning about possibly initiating dialysis. Patient wants to talk to her family first and then will make decision. - Objective MAR Reviewed: Yes Vital Signs & Weight: Vital Signs (12 hours) Temp Pulse Resp BP Pulse Ox 11/15/19 04:00 98.5 F 60 14 109/66 95 Weight Admit Weight 62.3 kg Weight 66.4 kg I&O: 11/14/19 11/15/19 11/16/19 06:59 06:59 06:59 Intake Total 120 2609 Output Total 150 135 Balance -30 2474 Result Diagrams: 11/13/19 18:30 11/15/19 03:37 Phys Exam - Physical Examination Constitutional: NAD HEENT: sclera anicteric dry MMs Neck: no JVD, supple, full ROM Respiratory: clear to auscultation bilateral Cardiovascular: RRR, no significant murmur Gastrointestinal: soft, non-tender, no distention Musculoskeletal: no edema, pulses present Neurological: normal sensation, moves all 4 limbs Psychiatric: normal affect, A&O x 3 Skin: no rash, normal turgor Dx/Plan (1) Acute kidney injury superimposed on CKD Code(s): N17.9 - ACUTE KIDNEY FAILURE, UNSPECIFIED; N18.9 - CHRONIC KIDNEY DISEASE, UNSPECIFIED Status: Acute (2) Diabetes mellitus, type II Status: Chronic Qualifiers: Diabetes mellitus alf insulin use: without alf use Diabetes mellitus complication status: with hypoglycemia Diabetes mellitus complication detail: without coma Qualified Code(s): E11.649 - Type 2 diabetes mellitus with hypoglycemia without coma (3) HTN (hypertension) Code(s): I10 - ESSENTIAL (PRIMARY) HYPERTENSION Status: Chronic Qualifiers: Hypertension type: essential hypertension Qualified Code(s): I10 - Essenti al (primary) hypertension - Plan Plan: Patient is a 59 yo female who presents with hypoglycemia and is found to have AURELIO: #AURELIO on CKD, worsening -likely 2/2 dehydration vs diuretic use, may be some component of superimposed ATN -admission BUN/Cr 74/11.94, K 5.8, previous Cr 1.72 -Cr trending up, 13.09 this AM -1L LR bolus given in ED, continued on maintenance IVF NS @ 125 ml/hr -Consult Nephrology, Dr Auguste, appreciate recs -renal ultrasound normal -urine studies reveal FeNa of 15.4%, suggestive of post-renal/obstructive p rocess -discussion had with patient to initiate hemodialysis, patient to talk with family and then make decision if to initiate later today -monitor BMP -lactic acid 3.9 > 2.5, procal 0.29 -held metformin, lasix -avoid nephrotoxic agents #Diarrhea -persistent for 1 month -no recent travel, sick contacts or changes in diet -stool studies negative #Transaminitis -AST/ALT 58/91, likely 2/2 dehydration -will continue to monitor #Indeterminate trop -trend trop 0.05 > 0.034 > 0.044 -likely due to demand ischemia #Hypoglycemia -BG 48, given 2 amps D50 in ED -held metformin, added SSI -BG checks q4h, consider spacing out if BG stabilize #Abnormal ekg -widened QRS, new -calcium given in ED -admit to tele, will monitor #HFrEF - BNP 295 - has defibrillator, Dr Wooten perinatal director - on IVF for dehydration, will monitor closely for fluid overload - continue home meds Code: DNR-DNI PCP: JEROME Harris IVF: D5NS 125ml/hr Diet: HH DVT ppx: heparin Dispo: Stable, admit to inpatient on telemetry unit. Continue IVF hydration, await decision to initiate hemodialysis as patient is not responding to IVF. Anticipate discharge in >48hrs. Addendum - Attending - Attending Attestation Date/Time: 11/15/19 8744 I personally evaluated the patient and discussed the management with Dr. Espinosa. I agree with the History, Examination, Assessment and Plan documented above with any addition or exceptions noted below. Adjusting nausea meds. Hoping that kidnes respond to fluids. Appreciate Dr Harvey weaver's expertise and guidance.
[2019-11-15] MEDS ORDERED: Heparin 10,000 UNITS/ 10 ML VIAL ONE (10:05)
--- NOTE | 2019-11-15 13:25 | ULT ---
EXAM: Vein mapping for dialysis access HISTORY: End-stage renal disease. TECHNIQUE: Multiplanar grayscale and color Doppler images were obtained in a bilateral upper extremit y venous ultrasound. Spectral analysis of the Doppler waveforms of the vessels were performed. FINDINGS: The bilateral internal jugular veins and subclavian veins are patent without evidence of th rombus. Right brachial artery 3.0 mm Right radial artery 2.2 mm Right ulnar artery 1.5 mm Left brachial artery 3.6 mm Left radial artery 2.2 mm Left ulnar artery 1.4 mm RIGHT CEPHALIC VEIN in millimeters 0.7 -- Shoulder Not visualized -- Upper arm 0.8 -- Mid upper arm 0.9-- Just proximal to the elbow 0.6 -- Just distal to the elbow 0.5 -- Forearm 1.7 -- Wrist RIGHT BASILIC VEIN in millimeters 1.4 -- Shoulder 1.9 -- Upper arm 1.4 -- Mid upper arm 1.7 -- Just proximal to the elbow 0.5 -- Just distal to the elbow 0.6 -- Forearm 0.5 -- Wrist LEFT CEPHALIC VEIN in millimeters 3.9 -- Shoulder 2.2 -- Upper arm 1.8 -- Mid upper arm 1.5 -- Just proximal to the elbow 1.1 -- Just distal to the elbow 0.6 -- Forearm 0.5 -- Wrist LEFT BASILIC VEIN in millimeters 5.6 -- Shoulder 4.7 -- Upper arm 1.6 -- Mid upper arm 1.0 -- Just proximal to the elbow 0.9 -- Just distal to the elbow 0.6 -- Forearm 0.4 -- Wrist IMPRESSION: Vein mapping for dialysis access as above
[2019-11-15] MEDS ORDERED: Ondansetron ODT 8 MG TAB PO PRN (13:34)
[2019-11-15] MEDS ORDERED: Ondansetron PF 4 MG/2 ML Vial IVP PRN (13:34)
[2019-11-15] MEDS: Acetaminophen 325 MG TAB PO PRN ×2 (15:54→20:25)
--- NOTE | 2019-11-16 00:20 | CON ---
DATE OF CONSULTATION: HISTORY OF PRESENT ILLNESS: Sarah Whyte is a 59-year-old female who lives in [place]. She has chronic kidney disease. She is followed by Dr. Auguste. She is admitted to initiate dialysis. I received a consult today to see her midmorning. By the time, she already had a full breakfast. COVID has not been ordered. Consult was for placement of a hemodialysis catheter. Her potassium is 5.6. Her CO2 is 14. The patient appears to be stable. Vital signs are normal. Ultrasound vein mapping ordered today revealed poor veins for a tribal vein fistula. Recommendation at this time is to place a bedside hemodialysis catheter in right femoral vein to initiate dialysis due to her severe acidosis and hyperkalemia. Once she dialyzes for 2 days, then later this week Wednesday, we would plan placement of a hemodialysis catheter cuffed, so that we can remove the right femoral vein catheter placement of a central line to preserve her veins. We would plan on establishing definitive access. She has poor veins in her arms for dialysis access. I have discussed with her options for hemodialysis and peritoneal dialysis. She is interested in peritoneal dialysis. She does have a defibrillator for a nonischemic cardiomyopathy and reports a cardiac ejection fraction around 20%. She saw Dr. Wooten recently, had a better change for defibrillator. I have consult Dr. Wooten for cardiac evaluation clearance considering possibility of general anesthetic for a laparoscopic peritoneal dialysis catheter placement on Wednesday. Dr. Auguste has also been notified, and will discuss this option with her considering her poor tribal veins and probable requirement to have a prosthetic graft for hemodialysis, peritoneal dialysis would be a good option. It also would enable her more independence at home. Certainly she wants a peritoneal dialysis catheter. I would not plan placement of a prosthetic graft. If she, however, declines to have a peritoneal dialysis catheter and wants to proceed with hemodialysis, we would plan placement of a right arm fistula or prosthetic graft pending operative findings. Even though she is right-handed, would avoid her left arm due to her defibrillator left subclavian vein. ALLERGIES: ROMANA INHIBITOR, CEFACLOR, CIPRO, CODEINE. SOCIAL HISTORY: Tobacco none. Alcohol rarely. MEDICATIONS: 1. Cymbalta 60 mg daily. 2. Colchicine 0.6 mg b.i.d. 3. Coreg 2 tablets t.i.d. 4. Atorvastatin 80 mg daily. 5. Furosemide 40 mg b.i.d. 6. Buspirone 15 mg b.i.d. 7. Metformin 500 b.i.d. PAST SURGICAL HISTORY: Defibrillator, recent battery change. PAST MEDICAL HISTORY: Nonischemic cardiomyopathy, noninsulin dependent diabetes mellitus, hypertension. Echocardiogram available for viewing from 02/06/2016 reveals ejection fraction of 40% to 45%, global hypokinesis. No significant valvular disease. Cardiac catheterization on July [address] Vieira and defibrillator placement. REVIEW OF SYSTEMS: Otherwise, noncontributory. FAMILY HISTORY: Noncontributory. PHYSICAL EXAMINATION: VITAL SIGNS: Height 5 foot 2 inches, pounds, 26 BMI, 97.5, 63, 151/68. HEAD EARS EYES, NOSE AND THROAT: Unremarkable. LUNGS: Clear to auscultation. CARDIAC: Rhythm without murmur or gallop. ABDOMEN: Soft, nontender. No hernias noted, defibrillator left chest. EXTREMITIES: Palpable pedal pulses. No ankle edema. NEUROLOGIC: Intact, no lymphadenopathy. LABORATORY DATA: Sodium 135, potassium 5.6, chloride 105, carbon dioxide 14, BUN 90, creatinine 13, GFR 3. Hemoglobin A1c 5.3. White count 8 and hemoglobin 14. Hepatitis studies negative except for B surface antibody reactive. ASSESSMENT/PLAN: 1. End-stage renal disease. 2. Acidosis. 3. Hyperkalemia. 4. She had a full breakfast. I would not place hemodialysis catheter today. 5. Considering acidosis and hyperkalemia, I think she needs more urgent dialysis. Thus, we will place a bedside Trialysis catheter both to protect her veins. She had a left antecubital IV removed upon my request once consultation was made. Ultrasound vein mapping suggests poor veins for tribal vein fistula. If she does not desire peritoneal dialysis, we would explore her right arm for a tribal vein fistula, but more than likely she would need a prosthetic graft. I would recommend consideration for peritoneal dialysis catheter and have notified Dr. Auguste. We will discuss with her. I have discussed this with the patient. She will consider this. We could consider laparoscopic peritoneal dialysis catheter placement along with placement of cuffed hemodialysis catheter in next 2 days on Wednesday. I have consulted Dr. Wooten. We will evaluate her cardiac status for such an anesthetic considering her nonischemic cardiomyopathy. 6. Hypertension. 7. Defibrillator, nonischemic cardiomyopathy according to the patient. 8. Diabetes. 9. Hypertension. Job ID: [id number]
[2019-11-16] MEDS: Acetaminophen 325 MG TAB PO PRN (00:56)
[2019-11-16 04:53] LABS: #Eosinphils 0.1 thou/uL (0.0-0.7); #Monocytes 0.4 thou/uL (0.11-0.59); %Basophils 0.5 % (0.0-1.0); %Eosinophils 2.2 % (0.0-10.0); %Lymphocytes 17.4 % (21.0-51.0); %Neutrophils 72.8 % (42.0-75.0); Hemoglobin 11.6 g/dL (12.0-16.0); Mean Corpuscular HGB CONC 33.9 g/dL (32.0-36.0); Mean Corpuscular Hemoglobin 33.9 pg (27.0-31.0); Mean Platelet Volume 9.2 fL (7.4-10.4); Platelet Count 141 thou/uL (130-400); RBC Distribution Width 11.5 % (11.5-14.5); Red Blood Cell (RBC) Count 3.41 mill/uL (4.20-5.40); White Blood Cell (WBC) Count 5.6 thou/uL (4.8-10.8)
[2019-11-16 05:13] LABS: ALT (SGPT) 52 U/L (8-55); AST (SGOT) 31 U/L (5-34); Alkaline Phosphatase 68 U/L (40-110); Anion Gap 17 mmol/L (10-20); BUN (Urea Nitrogen) 66 mg/dL (9.8-20.1); Bilirubin, Total 0.3 mg/dL (0.2-1.2); Calc. Creatinine Clearance 5 mL/min (70-130); Calcium 7.3 mg/dL (7.8-10.44); Carbon Dioxide 16 mmol/L (22-29); Chloride 108 mmol/L (98-107); Estimated GFR-MDRD 3; Globulin 1.9 g/dL (2.4-3.5); Glucose 168 mg/dL (70-105); Potassium 4.7 mmol/L (3.5-5.1); Protein, Total 4.9 g/dL (6.0-8.3); Sodium 136 mmol/L (136-145)
--- NOTE | 2019-11-16 07:08 | OP ---
DATE OF PROCEDURE: 11/15/2019 PREOPERATIVE DIAGNOSES: 1. Diabetes. 2. Hypertension. 3. Defibrillator, left subclavian vein. 4. Nonischemic cardiomyopathy. 5. End-stage renal disease. 6. Acidosis, CO2 of 14. 7. Hyperkalemia, 5.6. 8. Consumed a full breakfast. POSTOPERATIVE DIAGNOSES: 1. Diabetes. 2. Hypertension. 3. Defibrillator, left subclavian vein. 4. Nonischemic cardiomyopathy. 5. End-stage renal disease. 6. Acidosis, CO2 of 14. 7. Hyperkalemia, 5.6. 8. Consumed a full breakfast. PROCEDURE PERFORMED: Right femoral vein Trialysis catheter. Note, I could not place a Trialysis catheter all the way in. It met some restriction, but it did have good flow, although, despite I could not place it all the way in. ANESTHESIA: 1% Xylocaine. DESCRIPTION OF PROCEDURE: With the patient at bedside in her room, her right groin was prepared with ChloraPrep and draped in routine fashion. Local anesthetic was infiltrated in the skin and subcutaneous tissue about the operative site. Seldinger technique was used to place a right femoral vein Trialysis catheter. As noted above, I could not thread the J-wire in completely. I did place small and medium size dilators without problems and placed a Trialysis catheter. The distal port, when I aspirated it, it would not aspirate. When it flushed, she experienced some hip discomfort. The hemodialysis ports both aspirated blood and flushed with heparinized saline solution and flowed very well. Catheter was secured with 3-0 nylon suture. After J-wire removed, each port flushed with heparinized saline solution. A sterile dressing was applied. Job ID: [id number]
[2019-11-16] MEDS: Dextrose 5 % And 0.9 % NaCl 1,000 ML IV SCH ×2 (07:43→16:27)
--- NOTE | 2019-11-16 08:06 | PRG ---
DATE OF SERVICE: 11/16/2019 SERVICE: Renal Medicine. SUBJECTIVE: Ms. Whyte is a 59-year-old white female, who was admitted for an acute kidney injury on top of her chronic renal failure. Initially, we felt that this acute kidney injury was hemodynamically-mediated dysfunction due to history of decreased p.o. intake and persistent diarrhea. She was given volume repletion, but without improvement. Her urinalysis did not show any overt pigmented granular casts. Initially, the suspicion was she might have developed acute tubular necrosis. However, urine sediment did show significant amount of protein as well as RBC greater than 50, and WBC greater than 50. Urine chemistries were not suggestive of a prerenal azotemia. My concern is whether this patient may have underlying acute glomerulonephritis, which is rapidly progressive. I will discuss with the patient about proceeding with a renal biopsy if she will agree with this. Currently, we have initiated hemodialysis due to the unimproved renal function. This morning, she voices no new complaints. She voices no chest pain or shortness of breath. OBJECTIVE: VITAL SIGNS: Blood pressure 128/68, heart rate 63, respiratory rate 16, temperature 97.7, and O2 saturation 96%. GENERAL: The patient is awake, supine, comfortable, lethargic, not in distress. SKIN: Adequate turgor. HEENT: She has pinkish conjunctivae. Anicteric sclerae. NECK: No neck mass. No carotid bruits. No JVD. CHEST: No deformities. LUNGS: Clear breath sounds. HEART: Normal sinus rhythm. No murmur. No gallops. No rubs. ABDOMEN: Globular, soft, and nontender. No masses. EXTREMITIES: No edema. No deformities. MEDICATIONS: Of November 16, 2019, was reviewed. LABORATORY DATA: Laboratories of November 16, 2019; white count 5.6, hemoglobin 11.6. Sodium 136, potassium 4.7, chloride 108, carbon dioxide 16, BUN 66, creatinine 12.45, glucose 168, calcium 7.3, and albumin 3.0. ASSESSMENT AND PLAN: Acute kidney injury on top of her chronic renal failure - initially I suspect that the possibility of a prerenal azotemia with conversion to acute tubular necrosis. However, urine sediment shows significant amount of protein. In addition, I have decided to order serologies, which includes PERLA, ANCA, urine and serum protein electrophoresis, random urine protein and random urine creatinine. Please note, her hepatitis C antibody is negative. In addition, hepatitis B surface antigen is nonreactive. My bias is to consider a renal biopsy if the patient will agree with this. She is still undecided as to what dialysis modality she will have placed for the moment. Our plan is to continue daily dialysis. We discussed with the patient about renal biopsy if she will agree with this. So far she is tolerating said dialysis. She is currently undergoing a 2-hour hemodialysis today. We will be rechecking a CBC and basic metabolic panel in a.m. Addendum: After a long discussion patient has agreed to proceed with the renal biopsy Job ID: [id number] [id number]
[2019-11-16] MEDS ORDERED: Heparin 10,000 UNITS/ 10 ML VIAL ONE (09:17)
--- NOTE | 2019-11-16 09:26 | PDOC.FM ---
- Subjective Subjective: Patient feeling a little better this morning. Overall still has significant nausea and weakness. Says she was able to tolerate eating a few grapes yesterday after dialysis. Had approx. 800 mL removed. She has decided to proceed with temporary dialysis, had catheter placed in right femoral yesterday by Dr. Patton. He is planning to place a more permanent peritoneal dialysis catheter on Wednesday as it appears patient wants to proceed with this route of dialysis. Dr. Patton has consulted Dr. Wooten for cardiac clearance prior to this surgery as patient has hx of defibrillator placement last year. Dr. Auguste is evaluating the patient for a possible acute glomerulonephritis. Had discussion this morning with patient about pursuing a renal biopsy and further urine & lab studies. - Objective MAR Reviewed: Yes Vital Signs & Weight: Vital Signs (12 hours) Temp Pulse Resp BP BP Pulse Ox 11/16/19 07:28 97.7 F 60 18 124/63 99 11/16/19 04:00 97.7 F 63 16 128/60 96 Weight Admit Weight 62.3 kg Weight 68 kg I&O: 11/15/19 11/16/19 11/17/19 06:59 06:59 06:59 Intake Total 2609 2770 Output Total 135 345 Balance 2094 1045 Result Diagrams: 11/16/19 04:30 11/16/19 04:30 Phys Exam - Physical Examination Constitutional: NAD HEENT: sclera anicteric dry MMs Neck: no JVD, supple, full ROM Respiratory: clear to auscultation bilateral Cardiovascular: RRR, no significant murmur Gastrointestinal: soft, no distention, positive bowel sounds TTP over area of Lovenox injections Musculoskeletal: no edema, pulses present Neurological: normal sensation, moves all 4 limbs Psychiatric: normal affect, A&O x 3 Skin: no rash Dx/Plan (1) Acute kidney injury superimposed on CKD Code(s): N17.9 - ACUTE KIDNEY FAILURE, UNSPECIFIED; N18.9 - CHRONIC KIDNEY DISEASE, UNSPECIFIED Status: Acute (2) Diabetes mellitus, type II Status: Chronic Qualifiers: Diabetes mellitus snf insulin use: without dedicated intermodal truck driver use Diabetes mellitus complication status: with hypoglycemia Diabetes mellitus complication detail: without coma Qualified Code(s): E11.649 - Type 2 diabetes mellitus with hypoglycemia without coma (3) HTN (hypertension) Code(s): I10 - ESSENTIAL (PRIMARY) HYPERTENSION Status: Chronic Qualifiers: Hypertension type: essential hypertension Qualified Code(s): I10 - Essential (primary) hypertension - Plan Plan: Patient is a 59 yo female who presents with hypoglycemia and is found to have AURELIO: #AURELIO on CKD, worsening -thought to initially be likely 2/2 dehydration vs diuretic use, now considering to be some component of superimposed ATN with additional concern for a rapidly progressive acute glomerulonephritis -admission BUN/Cr 74/11.94, K 5.8, previous Cr 1.72 -Cr trending up, 13.09 on 11/14, 12.5 today -1L LR bolus given in ED, continued on maintenance IVF NS @ 125 ml/hr -Consult Nephrology, Dr Auguste, appreciate recs -renal ultrasound normal -urine studies reveal FeNa of 15.4% -temporary hemodialysis started on 11/14, had 800 mL removed on 11/14, repeat today -plan for peritoneal dialysis catheter placement on Wednesday with Dr. Patton -concern for acute glomerulonephritis this morning, has ordered additional urine studies, PERLA, ANCA, protein electrophoresis. Discussing with patient the opportunity to pursue renal biopsy -Consult Gen Surgery, Dr. Patton for dialysis catheter placement -Consult Cardiology, Dr. Wooten for cardiac clearance for surgery -patient with history of defibrillator placement by Dr. Wooten last year -monitor BMP -lactic acid 3.9 > 2.5, procal 0.29 -held metformin, lasix -avoid nephrotoxic agents #Diarrhea -persistent for 1 month, only 2 BMs since admission -no recent travel, sick contacts or changes in diet -stool studies negative #Transaminitis -AST/ALT 58/91, likely 2/2 dehydration -will continue to monitor #Indeterminate trop -trend trop 0.05 > 0.034 > 0.044 -likely due to demand ischemia #Hypoglycemia -BG 48, given 2 amps D50 in ED -held metformin, added SSI -BG checks q4h, consider spacing out if BG stabilize #Abnormal ekg -widened QRS, new -calcium given in ED -admit to tele, will monitor #HFrEF - BNP 295 - 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 Continue IVF hydration & temp. hemodialysis. Nephrology ordering further studies and potentially renal biopsy. Cardiology to clear patient for surgery. Gen Surg planning for peritoneal catheter placement tomorrow. Anticipate discharge in >48hrs. Addendum - Attending - Attending Attestation Date/Time: 11/16/19 2200 I personally evaluated the patient and discussed the management with Dr. Espinosa. I agree with the History, Examination, Assessment and Plan documented above with any addition or exceptions noted below.
[2019-11-16] MEDS: Carvedilol 6.25 MG TAB PO SCH ×3 (10:07→20:43)
[2019-11-16] MEDS: Sodium Bicarbonate Tab 325 MG TAB PO SCH ×3 (10:07→20:40)
[2019-11-16] MEDS: DULoxetine 60 MG CAP PO SCH (10:07)
[2019-11-16] MEDS: busPIRone HCl 10 MG TAB PO SCH ×2 (10:08→20:40)
[2019-11-16] MEDS: Atorvastatin Calcium 40 MG TAB PO SCH (10:09)
--- NOTE | 2019-11-16 10:12 | CON ---
DATE OF CONSULTATION: HISTORY OF PRESENT ILLNESS: Lian Whyte is a 59-year-old white female initially evaluated in March 2012. She presented with a 2-month history of progressive dyspnea on exertion as well as orthopnea and PND. She was found to have an ejection fraction of 15% to 20%. She underwent cardiac catheterization, which revealed normal coronary arteries. She was sent home with a LifeVest and then in July 2012, had a dual-chamber defibrillator placed. She has been somewhat noncompliant at times with office followups. Also, there has been difficulty in trying to maintain her fluid balance with her OptiVol being quite high at times. She was tried on Entresto in 2016, however, creatinine increased from 0.97 up to 2.10 and that was discontinued. Her creatinine returned to normal, however, in beginning July 2017, was up to 1.49. In April 2019, creatinine was 1.72; however, on admission here, it is 11.94. She now is admitted with diarrhea for 1 month. She denies any nausea or vomiting, but does state that 2 to 3 days prior to admission that she completely lost her appetite and has not eaten anything. She denies any shortness of breath or chest discomfort. Her last echocardiogram was in June 2019. Her ejection fraction was 15% to 20%. She had a short period of time where her ejection fraction did seem to improve several years ago up to 40%, however, is now back to what it was in 2012. On her ICD, she has ventricular pacing less than 1%. PAST MEDICAL HISTORY: Nonischemic cardiomyopathy, chronic systolic heart failure, hypertension, hyperlipidemia, diabetes, arthritis, normal coronary arteries in 2012, normal Cardiolite in March 2017, nonsustained ventricular tachycardia. MEDICATIONS: 1. Atorvastatin 80 daily. 2. Buspirone 15 mg b.i.d. 3. Carvedilol 12.5 t.i.d. 4. Colchicine 0.6 b.i.d. 5. Cymbalta 60 daily. 6. Furosemide 40 b.i.d. 7. Metformin 500 mg b.i.d. ALLERGIES: ROMANA INHIBITORS CAUSE A COUGH, CECLOR, CIPRO, CODEINE. OPERATIONS: ICD placement, LASIK, tonsillectomy. SOCIAL HISTORY: She smoked 1-1/2 packs per day for 13 years. When she was admitted in March 2012, her urine was positive for methamphetamines. She drinks a glass of wine per night. FAMILY HISTORY: Unremarkable. REVIEW OF SYSTEMS: Otherwise, unremarkable. PHYSICAL EXAMINATION: VITAL SIGNS: Blood pressure 124/63, pulse of 60. HEENT: PERRL. NECK: Supple. CHEST: Clear. CARDIAC: S1 and S2 normal without any S3, S4, or murmurs. ABDOMEN: Normal bowel sounds without tenderness or organomegaly. EXTREMITIES: Reveal no edema. NEUROLOGIC: Grossly intact. LABORATORY DATA: EKG reveals sinus rhythm with left axis deviation and nonspecific intraventricular conduction delay with QRS of 120 msec. Renal ultrasound revealed no hydronephrosis. Chest x-ray is unremarkable. Hemoglobin 11.6, hematocrit 34.1, white count 5600, platelets 141,000. Sodium 136, potassium 4.7, chloride 108, carbon dioxide 16, BUN 66, creatinine 12.45, AST 50, ALT 81. BNP 294.7. IMPRESSION: 1. Acute kidney injury on chronic kidney disease. In July 2019, her creatinine was 1.42 when seen in the office. She now has had a month's worth of diarrhea, which may have led to volume depletion and her acute kidney injury. She has been challenged with intravenous fluids and has not had much improvement in her creatinine and dialysis is being instituted. 2. Nonischemic cardiomyopathy first diagnosed in March 2012. She has been noncompliant with office followups at times and has been very difficult to maintain her volume status, although symptom hunt, she does fairly well. EF 15-20%. 3. Implantable wlthbmuygorx-xnpucaknuaoxg-mtye chamber. She just had a change out in July 2019. 4. Somewhat widened QRS of 120 msec. 5. Normal coronary arteries on catheterization in March 2012 and normal Cardiolite in March 2017. 6. Cwpbsizs-ym-loorpo mitral regurgitation. 7. Nonsustained ventricular tachycardia with episodes on implantable cardioverter-defibrillator, not requiring therapy. 8. Hypercholesterolemia. 9. Hypertension. 10. Diabetes. 11. History of methamphetamine abuse in 2012. 12. Varicose veins. 13. Cough with ROMANA inhibitors. 14. Diarrhea. PLAN: Dr. Patton will place a cuffed hemodialysis catheter. This may require general anesthesia. Ms. Whyte is an acceptable cardiac risk for general anesthesia with finding of normal coronary arteries in 2012 and normal Cardiolite in 2018. She has no symptoms of chest discomfort. Her volume status will need to be watched closely with her cardiomyopathy. Job ID: [id number] MTDD
[2019-11-16 11:39] LABS: Creatinine, Urine 36.92 mg/dL (47-110)
[2019-11-16 12:10] LABS: SARS-CoV-2 MS2 Positive; SARS-CoV-2 N Gene Negative; SARS-CoV-2 S Gene Negative; SARS-CoV-2 by NAA Not Detected (NotDetected); SARS-CoV-2 orf1ab Negative
[2019-11-16 12:25] LABS: Prothrombin Time 12.7 sec (12.0-14.7)
[2019-11-16 12:32] LABS: PTT 167.1 sec (22.9-36.1)
--- NOTE | 2019-11-16 16:54 | PRG ---
DATE OF SERVICE: 11/16/2019 SUBJECTIVE: Lian Whyte is doing well. She feels better after having two dialysis. She is scheduled for renal biopsy tomorrow. She is scheduled for laparoscopic peritoneal dialysis catheter placement, hemodialysis catheter placement, and central line. We will explore her right arm for possible fistula, realizing that her veins may be inadequate. She understands risks and benefits, consents. Dr. Napoleon Wooten is seeing her for her nonischemic cardiomyopathy to assess her for general anesthetic. Echocardiogram in June 2019, EF of 15% to 20%. She has a left subclavian vein defibrillator. She has progressed renal failure and needs dialysis. I placed a temporary hemodialysis catheter. We will plan placement of cuffed tunneled hemodialysis catheter tomorrow, central line, and laparoscopic PD catheter, explore right arm for a fistula. She understands risks and benefits, and questions have been answered. Job ID: [id number]
[2019-11-16] MEDS: Melatonin 3 MG TAB PO PRN (20:43)
[2019-11-17] MEDS: Dextrose 5 % And 0.9 % NaCl 1,000 ML IV SCH ×3 (00:23→16:34)
[2019-11-17 04:35] LABS: PTT 29.8 sec (22.9-36.1)
[2019-11-17 04:54] LABS: ALT (SGPT) 67 U/L (8-55); AST (SGOT) 50 U/L (5-34); Albumin 2.8 g/dL (3.5-5.0); Alkaline Phosphatase 63 U/L (40-110); Anion Gap 14 mmol/L (10-20); BUN (Urea Nitrogen) 37 mg/dL (9.8-20.1); Bilirubin, Total 0.4 mg/dL (0.2-1.2); Calc. Creatinine Clearance 7 mL/min (70-130); Calcium 7.1 mg/dL (7.8-10.44); Carbon Dioxide 20 mmol/L (22-29); Chloride 109 mmol/L (98-107); Estimated GFR-MDRD 5; Globulin 1.7 g/dL (2.4-3.5); Glucose 141 mg/dL (70-105); Potassium 3.8 mmol/L (3.5-5.1); Protein, Total 4.5 g/dL (6.0-8.3); Sodium 139 mmol/L (136-145)
[2019-11-17] MEDS: Atorvastatin Calcium 40 MG TAB PO SCH (05:26)
[2019-11-17] MEDS: DULoxetine 60 MG CAP PO SCH (05:26)
[2019-11-17] MEDS: Sodium Bicarbonate Tab 325 MG TAB PO SCH ×3 (05:26→20:58)
[2019-11-17] MEDS: busPIRone HCl 10 MG TAB PO SCH ×2 (05:27→20:58)
[2019-11-17] MEDS: Carvedilol 6.25 MG TAB PO SCH ×3 (05:28→20:58)
[2019-11-17] MEDS ORDERED: Fentanyl 100 MCG/2 ML VIAL ONE ×3 (08:21→13:04)
[2019-11-17] MEDS ORDERED: Midazolam HCl 2 mg/2 ml Vial ONE (08:22)
[2019-11-17] MEDS ORDERED: Sodium Bicarbonate 2.5 MEQ/5 ML VIAL ONE (08:22)
--- NOTE | 2019-11-17 09:00 | PDOC.FM ---
- Subjective Subjective: Patient feeling better this morning, is up walking around the room and says she was just able to shower. Overall still has moderate nausea but this is improving. Says she was able to tolerate eating 4 bites of a ham sandwich yesterday after dialysis. Had approx. 1000 mL removed. Is currently awaiting surgery with Dr. Patton later this morning for placement of peritoneal dialysis catheter and Dr. Auguste for renal biopsy. - Objective MAR Reviewed: Yes Vital Signs & Weight: Vital Signs (12 hours) Temp Pulse Resp BP Pulse Ox 11/17/19 07:47 98.1 F 60 19 140/70 96 11/17/19 05:28 67 117/59 L 11/17/19 02:55 97.3 F L 60 20 123/65 96 11/16/19 21:10 96.6 F L 62 16 152/73 H 96 Weight Admit Weight 62.3 kg Weight 68.2 kg I&O: 11/16/19 11/17/19 11/18/19 06:59 06:59 06:59 Intake Total 2770 3120 Output Total 345 1275 Balance 2425 1845 Result Diagrams: 11/16/19 04:30 11/17/19 04:13 Phys Exam - Physical Examination Constitutional: NAD HEENT: moist MMs, sclera anicteric Neck: no JVD, supple, full ROM Respiratory: no wheezing, clear to auscultation bilateral Cardiovascular: RRR, no significant murmur Gastrointestinal: soft, non-tender, no distention Musculoskeletal: no edema, pulses present Neurological: non-focal, normal sensation, moves all 4 limbs Psychiatric: normal affect, A&O x 3 Skin: no rash Dx/Plan (1) Acute kidney injury superimposed on CKD Code(s): N17.9 - ACUTE KIDNEY FAILURE, UNSPECIFIED; N18.9 - CHRONIC KIDNEY DISEASE, UNSPECIFIED Status: Acute (2) Diabetes mellitus, type II Status: Chronic Qualifiers: Diabetes mellitus nurse consultant insulin use: without nurse consultant use Diabetes mellitus complication status: with hypoglycemia Diabetes mellitus complication detail: without coma Qualified Code(s): E11.649 - Type 2 diabetes mellitus with hypoglycemia without coma (3) HTN (hypertension) Code(s): I10 - ESSENTIAL (PRIMARY) HYPERTENSION Status: Chronic Qualifiers: Hypertension type: essential hypertension Qualified Code(s): I10 - Essential (primary) hypertension - Plan Plan: Patient is a 59 yo female who presents with hypoglycemia and is found to have AURELIO: #AURELIO on CKD, improving -thought to initially be likely 2/2 dehydration vs diuretic use, now considering to be some component of superimposed ATN with additional concern for a rapidly progressive acute glomerulonephritis -admission BUN/Cr 74/11.94, K 5.8, previous Cr 1.72 -Cr trending up, peak of 13.09 on 11/14, 8.7 today -1L LR bolus given in ED, continued on maintenance IVF D5NS @ 125 ml/hr -Consult Nephrology, Dr Auguste, appreciate recs -renal ultrasound normal -urine studies reveal FeNa of 15.4% -temporary hemodialysis started on 11/14, had 800 mL removed on 11/14, 1000 mL on 11/15 -plan for peritoneal dialysis catheter placement today with Dr. Patton -concern for acute glomerulonephritis this morning, has ordered additional urine studies, PERLA, ANCA, protein electrophoresis -renal biopsy today with Dr. Auguste -Consult Gen Surgery, Dr. Patton for dialysis catheter placement -Consult Cardiology, Dr. Wooten for cardiac clearance for surgery-cleared 11/15 -patient with history of defibrillator placement by Dr. Wooten last year -monitor BMP -lactic acid 3.9 > 2.5, procal 0.29 -held metformin, lasix -avoid nephrotoxic agents #Diarrhea -persistent for 1 month, only 2 BMs since admission which were yellow & watery, denies any bright red or black/tarry stools -no recent travel, sick contacts or changes in diet -stool studies negative #Transaminitis -AST/ALT 58/91, likely 2/2 dehydration -will continue to monitor #Indeterminate trop -trend trop 0.05 > 0.034 > 0.044 -likely due to demand ischemia #Hypoglycemia -BG 48, given 2 amps D50 in ED -held metformin, added SSI -BG checks q4h, consider spacing out if BG stabilize #Abnormal ekg -widened QRS, new -calcium given in ED -admit to tele, will monitor #HFrEF - BNP 295 - 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 Continue IVF hydration & t emp. hemodialysis. Nephrology ordering further studies, renal biopsy today. Gen Surg planning for peritoneal catheter placement today. Anticipate discharge in >48hrs. Addendum - Attending - Attending Attestation Date/Time: 11/17/19 0630 I personally evaluated the patient and discussed the management with Dr. Espinosa. I agree with the History, Examination, Assessment and Plan documented above with any addition or exceptions noted below.
--- NOTE | 2019-11-17 09:49 | PRG ---
DATE OF SERVICE: 11/17/2019 SUBJECTIVE: Ms. Whyte is a 59-year-old white female, who was admitted for an acute kidney injury. Initially, we felt that this was hemodynamically-mediated renal dysfunction. She was empirically volume repleted with no improvement. Consideration for ATN remains. However, due to the rapidly progressive nature of the renal failure as well as proteinuria, we have decided to proceed with a CT scan-guided renal biopsy. She is scheduled for renal biopsy today. Heparin has been discontinued - subcutaneously. No new complaints today. She is feeling better. She is also scheduled for a PD catheter as well as a cuffed hemodialysis catheter placement. The patient denies any chest pain or shortness of breath. OBJECTIVE: VITAL SIGNS: Blood pressure is 117/59, heart rate 60, respiratory rate 20, temperature 97.3, O2 saturation 96%. GENERAL: The patient is awake, alert, comfortable, not in distress. SKIN: Adequate turgor. HEENT: She has a pinkish conjunctivae. Anicteric sclerae. NECK: No neck mass. No carotid bruits. No JVD. CHEST: No deformities. LUNGS: Clear breath sounds. No wheezing. No crackles. HEART: Normal sinus rhythm. No murmurs, gallops, or rubs. ABDOMEN: Globular, soft, nontender. No masses. EXTREMITIES: No edema. No deformities. MEDICATIONS: Medications of November 17, 2019, were reviewed. LABORATORY DATA: Laboratories of November 16, 2019; white count 5.6, hemoglobin 11.6. November 17, 2019; sodium 139, potassium 3.8, chloride 109, carbon dioxide 20, BUN 37, creatinine 8.7, glucose 141, calcium 7.1, AST 50, ALT 67, albumin 2.8. Hepatitis B surface antigen negative. Hepatitis C antibody negative. PERLA and ANCA are pending. ASSESSMENT AND PLAN: Acute kidney injury on top of chronic renal failure - unclear etiology, although possibility of acute tubular necrosis remains. We will rule out glomerulonephritis with this patient. We will be scheduling her for renal biopsy. We will also be scheduling her for hemodialysis today for at least 3 hours. Fluid removal will be done as tolerated. The patient has been scheduled by Dr. Patton for a peritoneal dialysis catheter placement as well as for a tunneled dialysis catheter. Again, overall prognosis remains guarded with this patient. Recheck CBC and basic metabolic panel in a.m. Job ID: [id number]
[2019-11-17] MEDS ORDERED: Heparin 10,000 UNITS/ 10 ML VIAL ONE ×2 (10:58→12:03)
[2019-11-17] MEDS ORDERED: Bupivacaine 0.25% HCL 30 ML VIAL ONE (10:58)
[2019-11-17] MEDS ORDERED: Lidocaine 1% w/Epinephrine 1:100K 20 ML VIAL ONE (10:58)
[2019-11-17] MEDS ORDERED: Sodium Chloride 0.9% 10 ML ONE (11:55)
--- NOTE | 2019-11-17 12:08 | CT ---
PROCEDURE: CT Renal Perc Biopsy PROVIDED CLINICAL HISTORY: Acute renal insufficiency. COMPARISON: None TECHNIQUE: The procedure including the risks and complications were explained to the patient, and informed conse nt was obtained. The patient was placed on the CT scan table in the prone position. Limited noncontrasted CT scan was obtained through the level of the kidneys. An area overlying the inferior p ole right kidney was marked, and the area was meticulously prepped and draped in usual sterile fashion. The skin and subcutaneous tissues were infiltrated with buffered 1% lidocaine for local anesthesia. S mall skin incision was made. A 17-gauge guide needle was advanced followed by axial noncontrasted CT images. This was repeated until the needle was placed just within the peripheral posterolateral in ferior pole left kidney. Utilizing coaxial technique, a total of two 18-gauge core needle biopsy specimens were obtained. Pathologist was available for evaluation of the specimens, and glomeruli wer e seen in each obtained core biopsy specimen. The needle was removed, and hemostasis was achieved with direct pressure. A dry sterile dressing was placed. Patient was transported to her hospital room in stable condition. Patient tolerated the procedure well and without immediate complication. IMPRESSION: Technically successful random right renal biopsy.
[2019-11-17] MEDS ORDERED: Ondansetron HCl/PF 4 MG/2 ML Vial IVP PRN (12:47)
[2019-11-17] MEDS ORDERED: Promethazine HCl 25 MG/ML VIAL SLOW IVP PRN (12:47)
[2019-11-17] MEDS ORDERED: Promethazine HCl 25 MG/ML VIAL IM PRN (12:47)
--- NOTE | 2019-11-17 13:01 | RAD ---
EXAM: XR Chest 1 View Portable PROVIDED CLINICAL HISTORY: Acute renal failure COMPARISON: 11/13/2019 FINDINGS: The cardiac silhouette appears enlarged, and there is probable shift of the mediastinal contents left bernal. There is obscuration of the left hemidiaphragm that may reflect left basilar pleural and/or parenchymal opacity. Left subclavian cardiac pacing device is again seen in similar position. Interva l placement of left-sided central line and right IJ dialysis catheter, the tips of which project in expected location of the right atrium. There is no evidence for pneumothorax. Prominence of the pulmo nary vasculature. IMPRESSION: 1. Left basilar pleural-parenchymal opacity and probable shift of the mediastinal contents leftward, which may reflect lobar atelectasis. 2. Interval central line placement without evidence for pneumothorax. 3. Prominence of the pulmonary vasculature.
[2019-11-17] MEDS ORDERED: Rocuronium Bromide 10 MG/ML (10ML VIAL) ONE (13:23)
[2019-11-17] MEDS ORDERED: Lidocaine 1% PF 5 ML VIAL ONE (13:23)
[2019-11-17 16:03] LABS: ANA Symphony (Qualitative) Negative (Negative); ANA Symphony (Quantitative) 0.2 Ratio (< 0.7 Negative); dsDNA IgG Antibody 1.4 IU/mL (<10 Negative)
[2019-11-17] MEDS: traMADol HCl 50 MG TAB PO PRN ×2 (16:54→21:04)
--- NOTE | 2019-11-17 18:47 | OP ---
DATE OF PROCEDURE: 11/17/2019 PREOPERATIVE DIAGNOSES: 1. End-stage renal disease. 2. Poor veins by ultrasound vein mapping. 3. Poor IV access. 4. Defibrillator, left subclavian vein. 5. Nonischemic cardiomyopathy. POSTOPERATIVE DIAGNOSES: 1. End-stage renal disease. 2. Poor veins by ultrasound vein mapping. 3. Poor IV access. 4. Defibrillator, left subclavian vein. 5. Nonischemic cardiomyopathy. ANESTHESIA: General, local 0.5% Marcaine 30 mL mixed with 1% Xylocaine with epinephrine 20 mL. PROCEDURES PERFORMED: Right IJ cuffed tunneled hemodialysis catheter, left IJ central line, fluoroscopy and ultrasound used. Laparoscopic double cuffed pigtail peritoneal dialysis catheter placement. Laparoscopic omentopexy. Exploration of the right antecubital area noting non-existent antecubital veins. PROCEDURE: Patient was taken to the operating room, where under general anesthesia, neck, chest, abdomen, and right upper extremity prepared with ChloraPrep and draped in routine fashion. Local anesthetic mixture was infiltrated into the skin and subcutaneous tissue about the operative sites. Using ultrasound guidance, the right and left internal jugular veins were cannulated with trocar catheter. J-wire was threaded. Trocar catheter removed. Skin site enlarged sharply. Seldinger technique used to place a triple-lumen catheter on the left, secured with 3-0 nylon suture. Each port aspirated blood flushed with saline solution. The cuffed tunneled hemodialysis catheter tunneled between a stab incision in the right chest to the neck incision on the right, placing the fabric cuff in the skin exit site, catheter secured with 2 interrupted suture of 3-0 nylon, sterile dressing applied. Small and medium size dilators placed over the J-wire and removed. Dilator and Peel-Away sheath placed with J-wire in superior vena cava. Dilator and J-wire removed. Catheter placed with the Peel-Away sheath. Peel-Away sheath removed. Fluoroscopically, catheter noted to be in good position. I aspirated the catheter and it seemed to aspirate well in the blue port, but not well seen on the red port, thus it was inserted low deeper in the SVC and it aspirated well. Fluoroscopic images revealed good line placements. Platysma was approximated with 4-0 Monocryl, skin with subdermal 4-0 Monocryl. Each port aspirated blood and flushed with saline solution and heparinized saline solution 1000 units of heparin per mL, indicating volume of the port. Sterile dressings applied. Attention was then turned to the abdomen. Bilateral far lateral subcostal incision made. Pneumoperitoneum to 15 mmHg was obtained with a Veress needle, replacing with a 5-port laparoscope inserted. Contralateral 5 mm port placed under laparoscopic visualization. Stab incision was made at the planned exit site left lower quadrant for the PD catheter. Counter incision was made at umbilical level distal, superior, medial and carried down to skin and subcutaneous tissue. An 8 mm port directed through this incision directed caudally dependently through the subcutaneous tissue into the rectus sheath visualized laparoscopically as the 8 mm port penetrated the peritoneum inferiorly. Double-cuffed pigtail peritoneal dialysis catheter placed through this port placed internal cuff in the rectus sheath removing the 8 mm port and then using the [place] dissector to tunnel into the exit site, placed in the fabric cuff beneath the skin exit site. A counter incision closed by approximating subcutaneous tissues with 3-0 Monocryl, skin with subdermal 4-0 Monocryl and Declo glue applied. Catheter flushed with heparinized saline solution with 1000 units of heparin per mL, indicating volume in the port. Sterile dressings applied. At this point, the omentum was noted to reach into the pelvis. Laparoscopic omentopexy performed with a 2-0 Vicryl suture in a GraNee needle. This secured the omentum well out of the pelvis. Abdominal cavity irrigated, irrigant evacuated. Good hemostasis noted. All instruments removed and all skin incisions were approximated with subdermal 4-0 Monocryl and Declo glue applied. I then made an incision in the proximal volar forearm below the antecubital fossa and I could not even find an antecubital vein. Subcutaneous tissue was approximated with 3- 0 Monocryl, skin with 4-0 Monocryl and Declo glue applied. Patient tolerated the procedure well. Job ID: [id number]
[2019-11-18] MEDS: Dextrose 5 % And 0.9 % NaCl 1,000 ML IV SCH ×3 (00:28→21:03)
[2019-11-18 03:56] LABS: #Eosinphils 0.3 thou/uL (0.0-0.7); #Monocytes 0.6 thou/uL (0.11-0.59); #Neutrophils 4.3 thou/uL (1.40-6.50); %Basophils 0.8 % (0.0-1.0); %Eosinophils 4.3 % (0.0-10.0); %Lymphocytes 16.3 % (21.0-51.0); %Neutrophils 69.6 % (42.0-75.0); Hemoglobin 10.1 g/dL (12.0-16.0); Mean Corpuscular HGB CONC 34.2 g/dL (32.0-36.0); Mean Corpuscular Hemoglobin 34.1 pg (27.0-31.0); Mean Corpuscular Volume 99.9 fL (78.0-98.0); Mean Platelet Volume 9.5 fL (7.4-10.4); Platelet Count 122 thou/uL (130-400); RBC Distribution Width 11.6 % (11.5-14.5); Red Blood Cell (RBC) Count 2.95 mill/uL (4.20-5.40); White Blood Cell (WBC) Count 6.1 thou/uL (4.8-10.8)
[2019-11-18] MEDS: traMADol HCl 50 MG TAB PO PRN ×3 (04:13→21:06)
[2019-11-18 04:19] LABS: ALT (SGPT) 46 U/L (8-55); AST (SGOT) 34 U/L (5-34); Albumin 2.6 g/dL (3.5-5.0); Alkaline Phosphatase 62 U/L (40-110); Anion Gap 12 mmol/L (10-20); BUN (Urea Nitrogen) 37 mg/dL (9.8-20.1); Bilirubin, Total 0.2 mg/dL (0.2-1.2); Calc. Creatinine Clearance 7 mL/min (70-130); Calcium 7.3 mg/dL (7.8-10.44); Carbon Dioxide 20 mmol/L (22-29); Chloride 111 mmol/L (98-107); Estimated GFR-MDRD 4; Globulin 1.8 g/dL (2.4-3.5); Glucose 135 mg/dL (70-105); Potassium 3.8 mmol/L (3.5-5.1); Protein, Total 4.4 g/dL (6.0-8.3); Sodium 139 mmol/L (136-145)
--- NOTE | 2019-11-18 06:25 | PDOC.FM ---
- Subjective Subjective: Patient continues to feel better, she thinks surgery went well yesterday. Her urine output has significantly improved in the last 24 hours. Nausea is about the same, was not able to eat anything yesterday. Does say she feels thirsty and has eaten alot of ice chips. - Objective MAR Reviewed: Yes Vital Signs & Weight: Vital Signs (12 hours) Temp Pulse Resp BP BP Pulse Ox 11/18/19 03:46 98.3 F 72 16 135/77 97 11/17/19 20:58 123/60 11/17/19 19:30 98.2 F 69 16 123/60 96 Weight Admit Weight 62.3 kg Weight 70.7 kg I&O: 11/16/19 11/17/19 11/18/19 06:59 06:59 06:59 Intake Total 2770 3120 1989 Output Total 345 1275 640 Balance 2425 1845 1350 Result Diagrams: 11/18/19 03:32 11/18/19 03:32 Phys Exam - Physical Examination Constitutional: NAD HEENT: moist MMs, sclera anicteric Neck: no JVD, supple, full ROM Respiratory: clear to auscultation bilateral Cardiovascular: RRR, no significant murmur Gastrointestinal: soft, non-tender, no distention Musculoskeletal: no edema, pulses present Neurological: normal sensation Psychiatric: normal affect, A&O x 3 Skin: no rash, normal turgor Dx/Plan (1) Acute kidney injury superimposed on CKD Code(s): N17.9 - ACUTE KIDNEY FAILURE, UNSPECIFIED; N18.9 - CHRONIC KIDNEY DISEASE, UNSPECIFIED Status: Acute (2) Diabetes mellitus, type II Status: Chronic Qualifiers: Diabetes mellitus longterm insulin use: without product manufacturing professional use Diabetes mellitus complication status: with hypoglycemia Diabetes mellitus complication detail: without coma Qualified Code(s): E11.649 - Type 2 diabetes mellitus with hypoglycemia without coma (3) HTN (hypertension) Code(s): I10 - ESSENTIAL (PRIMARY) HYPERTENSION Status: Chronic Qualifiers: Hypertension type: essential hypertension Qualified Code(s): I10 - Essential (primary) hypertension - Plan Plan: Patient is a 59 yo female who presents with hypoglycemia and is found to have AURELIO: #AURELIO on CKD, improving -thought to initially be likely 2/2 dehydration vs diuretic use, now considering to be some component of superimposed ATN with additional concern for a rapidly progressive acute glomerulonephritis -admission BUN/Cr 74/11.94, K 5.8, previous Cr 1.72 -Cr trending up, peak of 13.09 on 11/14, 9.0 today -1L LR bolus given in ED, continued on maintenance IVF D5NS @ 125 ml/hr -Consult Nephrology, Dr Auguste, appreciate recs -renal ultrasound normal -urine studies reveal FeNa of 15.4% -temporary hemodialysis started on 11/14, had 800 mL removed on 11/14, 1000 mL on 11/15 -plan for peritoneal dialysis catheter placement today with Dr. Patton -concern for acute glomerulonephritis this morning -protein electrophoresis, ANCA pending -PERLA negative, anti-ds DNA negative -renal biopsy today with Dr. Auguste -Consult Gen Surgery, Dr. Patton for dialysis catheter placement -Consult Cardiology, Dr. Wooten for cardiac clearance for surgery-cleared 11/15 -patient with history of defibrillator placement by Dr. Wooten last year -monitor BMP -lactic acid 3.9 > 2.5, procal 0.29 -held metformin, lasix -avoid nephrotoxic agents #Diarrhea -persistent for 1 month, only 2 BMs since admission which were yellow & watery, denies any bright red or black/tarry stools -no recent travel, sick contacts or changes in diet -stool studies negative #Transaminitis -AST/ALT 58/91, likely 2/2 dehydration -will continue to monitor #Indeterminate trop -trend trop 0.05 > 0.034 > 0.044 -likely due to demand ischemia #Hypoglycemia -BG 48, given 2 amps D50 in ED -held metformin, added SSI -BG checks q4h, consider spacing out if BG stabilize #Abnormal ekg -widened QRS, new -calcium given in ED -admit to tele, will monitor #HFrEF - BNP 295 - has defibrillator, 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 Continue IVF hydration & starting peritoneal hemodialysis. Renal biopsy pending. Continue to monitor urine output and renal function. Anticipate discharge in >48hrs. Addendum - Attending - Attending Attestation Date/Time: 11/18/19 5191 I personally evaluated the patient and discussed the management with Dr. willis. I agree with the History, Examination, Assessment and Plan documented above with any addition or exceptions noted below.
[2019-11-18] MEDS ORDERED: Heparin 10,000 UNITS/ 10 ML VIAL ONE (09:15)
[2019-11-18] MEDS ORDERED: Tuberculin PPD 0.1 ML VIAL I-DERMAL SCH (10:15)
--- NOTE | 2019-11-18 10:32 | PRG ---
DATE OF SERVICE: 11/18/2019 SUBJECTIVE: Ms. Whyte is a 59-year-old white female, who was admitted for an acute kidney injury on top of her chronic renal failure. Initial working diagnosis was, she may have been prerenal due to the history of decreased p.o. intake, weight loss and persistent diarrhea. Empiric volume repletion was given without any improvement of the renal function. A presumptive diagnosis of ATN was made. Due to the azotemia and clinical uremia, the patient was initiated on dialysis. The patient is currently doing better with dialysis. She is currently undergoing hemodialysis today. Fluid removal is being done. She also has undergone a placement of hemodialysis and PD catheter. In addition, she underwent renal biopsy to further delineate the etiology of her renal dysfunction. No new complaints today. No chest pain or shortness of breath. OBJECTIVE: VITAL SIGNS: Blood pressure 135/77, heart rate 72, respiratory rate 16, temperature 98.3, O2 saturation is 97%. GENERAL: The patient is awake, alert, comfortable, not in distress. SKIN: Adequate turgor. HEENT: She has pinkish conjunctivae. Anicteric sclerae. NECK: No neck mass. No carotid bruits. No JVD. CHEST: No deformities. LUNGS: Clear breath sounds. No wheezing. No crackles. HEART: Normal sinus rhythm. No murmur. No gallops. No rubs. ABDOMEN: Globular, soft, nontender. No masses. Positive for PD catheter. EXTREMITIES: No edema. MEDICATIONS: On November 18, 2019, was reviewed. LABORATORY DATA: Laboratories of November 18, 2019: White count 6.1, hemoglobin 10.1. Sodium 139, potassium 3.8, chloride 111, carbon dioxide 20, BUN 37, creatinine 9.0, glucose 135, calcium 7.3, albumin 2.6. ASSESSMENT AND PLAN: 1. Acute kidney injury/chronic renal failure - the patient has been initiated with hemodialysis due to the clinical uremia and progressive azotemia. She is tolerating current dialysis regimen. We are attempting fluid removal between 2 and 3 L as tolerated by the patient. Please note, the patient has undergone a CT scan-guided renal biopsy to further determine the etiology of this acute kidney injury. 2. Borderline anemia. We will simply observe this. Please note, the patient is interested in pursuing peritoneal dialysis and for that reason, a PD catheter has been placed. We will recheck CBC and basic metabolic panel in a.m. Job ID: [id number]
[2019-11-18] MEDS: Carvedilol 6.25 MG TAB PO SCH ×3 (12:33→21:02)
[2019-11-18] MEDS: DULoxetine 60 MG CAP PO SCH (12:34)
[2019-11-18] MEDS: Atorvastatin Calcium 40 MG TAB PO SCH (12:34)
[2019-11-18] MEDS: Sodium Bicarbonate Tab 325 MG TAB PO SCH ×3 (12:34→21:02)
[2019-11-18] MEDS: busPIRone HCl 10 MG TAB PO SCH ×2 (12:34→21:02)
[2019-11-18] MEDS: hydrALAZINE 10 MG TAB PO SCH ×2 (14:53→21:02)
[2019-11-18] MEDS: Melatonin 3 MG TAB PO PRN (21:06)
[2019-11-19] MEDS: traMADol HCl 50 MG TAB PO PRN ×3 (02:07→15:23)
[2019-11-19] MEDS: Dextrose 5 % And 0.9 % NaCl 1,000 ML IV SCH ×2 (04:13→08:55)
[2019-11-19 04:51] LABS: #Eosinphils 0.2 thou/uL (0.0-0.7); #Monocytes 0.4 thou/uL (0.11-0.59); %Basophils 0.7 % (0.0-1.0); %Eosinophils 4.2 % (0.0-10.0); %Lymphocytes 18.1 % (21.0-51.0); %Monocytes 7.7 % (0.0-10.0); %Neutrophils 69.3 % (42.0-75.0); Hemoglobin 9.8 g/dL (12.0-16.0); Mean Corpuscular HGB CONC 34.3 g/dL (32.0-36.0); Mean Corpuscular Hemoglobin 33.7 pg (27.0-31.0); Mean Corpuscular Volume 98.2 fL (78.0-98.0); Mean Platelet Volume 9.5 fL (7.4-10.4); Platelet Count 114 thou/uL (130-400); RBC Distribution Width 11.6 % (11.5-14.5); Red Blood Cell (RBC) Count 2.92 mill/uL (4.20-5.40); White Blood Cell (WBC) Count 5.7 thou/uL (4.8-10.8)
[2019-11-19 05:12] LABS: ALT (SGPT) 28 U/L (8-55); AST (SGOT) 31 U/L (5-34); Albumin 2.5 g/dL (3.5-5.0); Alkaline Phosphatase 62 U/L (40-110); Anion Gap 11 mmol/L (10-20); BUN (Urea Nitrogen) 18 mg/dL (9.8-20.1); Bilirubin, Total 0.2 mg/dL (0.2-1.2); Calc. Creatinine Clearance 12 mL/min (70-130); Calcium 7.4 mg/dL (7.8-10.44); Carbon Dioxide 24 mmol/L (22-29); Chloride 109 mmol/L (98-107); Estimated GFR-MDRD 7; Globulin 1.9 g/dL (2.4-3.5); Glucose 125 mg/dL (70-105); Potassium 3.6 mmol/L (3.5-5.1); Protein, Total 4.4 g/dL (6.0-8.3); Sodium 140 mmol/L (136-145)
--- NOTE | 2019-11-19 07:41 | PDOC.FM ---
- Subjective Subjective: Patient feels well this morning, voices no complaints. States she ate lots of ice yesterday but no solid foods. Denies nausea but states she has no appetite and is not hungry. Denies any pain complaints. - Objective MAR Reviewed: Yes Vital Signs & Weight: Vital Signs (12 hours) Temp Pulse Resp BP BP Pulse Ox 11/19/19 04:40 98.0 F 69 14 124/81 99 11/18/19 21:02 64 123/60 11/18/19 20:04 98.3 F 64 14 139/78 99 Weight Admit Weight 62.3 kg Weight 70.03 kg I&O: 11/18/19 11/19/19 11/20/19 06:59 06:59 06:59 Intake Total 1989 2545 Output Total 640 1900 Balance 1350 646 Result Diagrams: 11/19/19 04:23 11/19/19 04:23 Phys Exam - Physical Examination Constitutional: NAD HEENT: moist MMs, sclera anicteric Neck: supple, full ROM even respirations, equal chest rise and fall Cardiovascular: RRR Gastrointestinal: soft, no distention appropriately TTP near PD site Musculoskeletal: no edema, pulses present Neurological: normal sensation, moves all 4 limbs Psychiatric: normal affect, A&O x 3 Skin: no rash Dx/Plan (1) Acute kidney injury superimposed on CKD Code(s): N17.9 - ACUTE KIDNEY FAILURE, UNSPECIFIED; N18.9 - CHRONIC KIDNEY DISEASE, UNSPECIFIED Status: Acute (2) Diabetes mellitus, type II Status: Chronic Qualifiers: Diabetes mellitus detention insulin use: without account auditor use Diabetes mellitus complication status: with hypoglycemia Diabetes mellitus complication detail: without coma Qualified Code(s): E11.649 - Type 2 diabetes mellitus with hypoglycemia without coma (3) HTN (hypertension) Code(s): I10 - ESSENTIAL (PRIMARY) HYPERTENSION Status: Chronic Qualifiers: Hypertension type: essential hypertension Qualified Code(s): I10 - Essential (primary) hypertension - Plan Plan: Patient is a 59 yo female who presents with hypoglycemia and is found to have AURELIO: #AURELIO on CKD, improving -thought to initially be likely 2/2 dehydration vs diuretic use, now considering to be some component of superimposed ATN with additional concern for a rapidly progressive acute glomerulonephritis -admission BUN/Cr 74/11.94, K 5.8, previous Cr 1.72 -Cr trending, peak of 13.09 on 11/14, 5.8 today -1L LR bolus given in ED, continued on maintenance IVF D5NS @ 125 ml/hr--will attempt to turn down rate today, switch to LR @ 75 ml/hr and encourage PO intake -Consult Nephrology, Dr Auguste, appreciate recs -renal ultrasound normal -urine studies reveal FeNa of 15.4% -temporary hemodialysis started on 11/14, had 800 mL removed on 11/14, 1000 mL on 11/15, 1400 mL on 11/17 -plan for peritoneal dialysis catheter placement today with Dr. Patton -concern for acute glomerulonephritis this morning -protein electrophoresis, ANCA pending -PERLA negative, anti-ds DNA negative -renal biopsy 11/16, results pending -Consult Gen Surgery, Dr. Patton for dialysis catheter placement -placed on 11/16: peritoneal cath, left IJ central line, right IJ temp HD cath -Consult Cardiology, Dr. Wooten for cardiac clearance for surgery-cleared 11/15 -patient with history of defibrillator placement by Dr. Wooten last year -monitor BMP -lactic acid 3.9 > 2.5, procal 0.29 -held metformin, lasix -avoid nephrotoxic agents #Diarrhea -persistent for 1 month, only 2 BMs since admission which were yellow & watery, denies any bright red or black/tarry stools -no recent travel, sick contacts or changes in diet -stool studies negative #Transaminitis -AST/ALT 58/91, likely 2/2 dehydration -will continue to monitor #Indeterminate trop -trend trop 0.05 > 0.034 > 0.044 -likely due to demand ischemia #Hypoglycemia -BG 48, given 2 amps D50 in ED -held metformin, added SSI -BG checks q4h, consider spacing out if BG stabilize #Abnormal ekg -widened QRS, new -calcium given in ED -admit to tele, will monitor #HFrEF - BNP 295 - 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 Attempt to wean down IVF hydration as patient has been responding well to hemodialysis. Renal biopsy pending. Continue to monitor urine output and renal function. Encourage PO intake, monitor glucose checks. Anticipate discharge in >48hrs. Addendum - Attending - Attending Attestation Date/Time: 11/19/19 4577 I personally evaluated the patient and discussed the management with Dr. Espinosa. I agree with the History, Examination, Assessment and Plan documented above with any addition or exceptions noted below.
[2019-11-19] MEDS: busPIRone HCl 10 MG TAB PO SCH ×2 (08:31→20:53)
[2019-11-19] MEDS: DULoxetine 60 MG CAP PO SCH (08:31)
[2019-11-19] MEDS: Atorvastatin Calcium 40 MG TAB PO SCH (08:32)
[2019-11-19] MEDS: Sodium Bicarbonate Tab 325 MG TAB PO SCH ×3 (08:32→20:52)
[2019-11-19] MEDS: Carvedilol 6.25 MG TAB PO SCH ×3 (08:33→20:53)
[2019-11-19] MEDS: hydrALAZINE 10 MG TAB PO SCH ×3 (08:33→20:53)
[2019-11-19] MEDS ORDERED: Epoetin (ESRD) 20,000 UNITS/ML SC SCH (10:30)
--- NOTE | 2019-11-19 10:41 | PRG ---
DATE OF SERVICE: 11/19/2019 SERVICE: Renal Medicine. SUBJECTIVE: Ms. Whyte is a 59-year-old white female, who was admitted for an acute kidney injury. She has a working diagnosis of superimposed ATN. We are also ruling out other possibilities of the renal dysfunction such as underlying glomerulonephritis. She is complaining of not feeling well. She is complaining of some wheezing on lying down. My plan is to give her p.r.n. DuoNeb. OBJECTIVE: VITAL SIGNS: Blood pressure is 144/69 with a heart rate of 71, respiratory rate 15, temperature 98, O2 saturation 95%. GENERAL: The patient is awake, alert, comfortable, not in overt distress. SKIN: Adequate turgor. HEENT: Slightly pale conjunctivae. Anicteric sclerae. NECK: No neck mass. No carotid bruits. No JVD. CHEST: No deformities. LUNGS: Clear breath sounds. HEART: Normal sinus rhythm. No murmurs, gallops, or rubs. ABDOMEN: Globular, soft, nontender. No masses. EXTREMITIES: No edema. No deformities. Positive for PD catheter. MEDICATIONS: On November 19, 2019, were reviewed. LABORATORY DATA: On November 19, 2019; white count 5.7, hemoglobin 9.8. Sodium 140, potassium 3.6, chloride 109, carbon dioxide 24, BUN 18, creatinine 5.78, calcium 7.4, albumin 2.5. ASSESSMENT AND PLAN: 1. Acute kidney injury/chronic renal failure-presumptive acute tubular necrosis, currently on hemodialysis regimen of 3 times a week with fluid removal as tolerated by the patient. 2. Anemia. We will start Epogen 7500 units subcu every week. 3. Chronic renal failure-previous creatinine 2 months ago was 1.7. She did undergo a CT scan-guided renal biopsy. We are awaiting for results. 4. Mild shortness of breath-with wheezing-DuoNeb x1 dose and repeat as needed. Job ID: [id number]
[2019-11-19] MEDS: Lactated Ringer's 1,000 ML IV SCH (11:45)
[2019-11-19] MEDS ORDERED: EPOETIN ALFA-EPBX (ESRD) 4,000 UNIT/ML VIAL SC SCH (12:00)
[2019-11-19] MEDS: Isosorbide Dinitrate 5 MG TAB PO SCH ×2 (15:18→20:52)
[2019-11-19] MEDS: Ferrous Sulfate 325 MG TAB PO SCH (18:28)
[2019-11-19] MEDS: Melatonin 3 MG TAB PO PRN (20:52)
[2019-11-19] MEDS: Acetaminophen 500 MG TAB PO PRN (20:52)
[2019-11-20] MEDS: traMADol HCl 50 MG TAB PO PRN (02:43)
[2019-11-20 04:25] LABS: ALT (SGPT) 30 U/L (8-55); AST (SGOT) 45 U/L (5-34); Albumin 2.5 g/dL (3.5-5.0); Alkaline Phosphatase 63 U/L (40-110); Anion Gap 12 mmol/L (10-20); BUN (Urea Nitrogen) 20 mg/dL (9.8-20.1); Bilirubin, Total 0.3 mg/dL (0.2-1.2); Calc. Creatinine Clearance 10 mL/min (70-130); Calcium 7.7 mg/dL (7.8-10.44); Carbon Dioxide 22 mmol/L (22-29); Chloride 108 mmol/L (98-107); Estimated GFR-MDRD 7; Globulin 1.8 g/dL (2.4-3.5); Glucose 93 mg/dL (70-105); Potassium 3.7 mmol/L (3.5-5.1); Protein, Total 4.3 g/dL (6.0-8.3); Sodium 138 mmol/L (136-145)
[2019-11-20] MEDS: Lactated Ringer's 1,000 ML IV SCH (07:02)
[2019-11-20] MEDS: Acetaminophen 500 MG TAB PO PRN (08:27)
--- NOTE | 2019-11-20 08:45 | PRG ---
DATE OF SERVICE: 11/20/2019 SERVICE: Renal Medicine. SUBJECTIVE: Ms. Whyte is a 59-year-old white female, who was admitted for an acute kidney injury. Presumptive diagnosis is acute tubular necrosis. She has been initiated on hemodialysis. In the interim, a cuffed hemodialysis catheter and PD catheter has been placed. This morning, she is complaining of some mild shortness of breath. No chest pain. OBJECTIVE: VITAL SIGNS: Blood pressure is 123/60, heart rate 68, respiratory rate 16, temperature 98.3, and O2 saturation 97%. GENERAL: The patient is awake, alert, comfortable, not in distress. SKIN: Adequate turgor. HEENT: She has a slightly pale conjunctivae. Anicteric sclerae. NECK: No neck mass. No carotid bruits. No JVD. CHEST: No deformities. LUNGS: Decreased breath sounds. HEART: Normal sinus rhythm. No murmur. No gallops. No rubs. ABDOMEN: Globular, soft, and nontender. No masses. EXTREMITIES: No edema. No deformities. MEDICATIONS: Of November 12, 2019, reviewed. LABORATORY DATA: Laboratories of November 20, 2019; sodium 138, potassium 3.7, chloride 108, carbon dioxide 22, BUN 20, creatinine 6.43, GFR is 7 mL/minute, glucose 93, calcium is 7.7, and albumin 2.5. ASSESSMENT AND PLAN: 1. Acute kidney injury/chronic renal failure - no evidence of renal recovery. We are continuing 3 times a week hemodialysis. I have scheduled her for 3-hour hemodialysis treatment today. We will continue this on a Wednesday, Wednesday, and Wednesday schedule. We are awaiting for the results of the CT scan-guided renal biopsy. Hopefully, we will have this by tree puller. Fluid removal as tolerated. Due to the complaints of mild shortness of breath, we will discontinue lactated Ringer's. 2. Borderline anemia. Hemoglobin noted at 9.8. The patient is currently on Epogen and ferrous sulfate. Recheck CBC and basic metabolic panel in a.m. Job ID: [id number]
[2019-11-20] MEDS ORDERED: READ PPD TEST SITE PO SCH (09:00)
--- NOTE | 2019-11-20 10:04 | PRG ---
DATE OF SERVICE: 11/20/2019 Lian Whyte is doing well today. Her right arm was explored, finding veins to be inadequate. She had a laparoscopic PD catheter. Her abdomen is soft and nontender. Her PD catheter should be flushed and dressings changed in the next few days. Hopefully, that can be done as an outpatient. Outpatient peritoneal dialysis nurse can change the dressing. If however she is still here throughout the week, PD nurse for the dialysis center can change her dressing and change the connections and flush the catheter. I will see her in the office in 3 to 4 weeks as indicated. Job ID: [id number]
--- NOTE | 2019-11-20 10:08 | PDOC.FM ---
- Subjective Subjective: Patient feels okay this morning. Does state she feels like she is breathing a little heavier this morning but denies any overt SOB. States she ate lots of ice yesterday along with part of a chicken sandwich and cream of wheat. Denies nausea and appetite improving. Denies any pain complaints. - Objective MAR Reviewed: Yes Vital Signs & Weight: Vital Signs (12 hours) Temp Pulse Resp BP Pulse Ox 11/20/19 07:07 98.3 F 68 16 123/60 97 11/20/19 03:47 97.9 F 77 14 127/58 L 98 Weight Admit Weight 62.3 kg Weight 7.03 kg I&O: 11/19/19 11/20/19 11/21/19 06:59 06:59 06:59 Intake Total 2546 600 Output Total 1900 425 Balance 646 175 Result Diagrams: 11/19/19 04:23 11/20/19 03:33 Phys Exam - Physical Examination Constitutional: NAD HEENT: moist MMs, sclera anicteric Neck: no JVD, supple, full ROM scattered occ. wheezes in upper lobes, otherwise CTA Cardiovascular: RRR Gastrointestinal: soft, no distention Musculoskeletal: no edema, pulses present Neurological: normal sensation, moves all 4 limbs Psychiatric: normal affect, A&O x 3 Skin: no rash Dx/Plan (1) Acute kidney injury superimposed on CKD Code(s): N17.9 - ACUTE KIDNEY FAILURE, UNSPECIFIED; N18.9 - CHRONIC KIDNEY DISEASE, UNSPECIFIED Status: Acute (2) Diabetes mellitus, type II Status: Chronic Qualifiers: Diabetes mellitus skilled nursing insulin use: without long goods drier use Diabetes mellitus complication status: with hypoglycemia Diabetes mellitus complication detail: without coma Qualified Code(s): E11.649 - Type 2 diabetes mellitus with hypoglycemia without coma (3) HTN (hypertension) Code(s): I10 - ESSENTIAL (PRIMARY) HYPERTENSION Status: Chronic Qualifiers: Hypertension type: essential hypertension Qualified Code(s): I10 - Essential (primary) hypertension - Plan Plan: Patient is a 59 yo female who presents with hypoglycemia and is found to have AURELIO: #AURELIO on CKD, improving -thought to initially be likely 2/2 dehydration vs diuretic use, now considering to be some component of superimposed ATN with additional concern for a rapidly progressive acute glomerulonephritis -admission BUN/Cr 74/11.94, K 5.8, previous Cr 1.72 -Cr trending, peak of 13.09 on 11/14, 6.43 today -1L LR bolus given in ED, continued on maintenance IVF D5NS @ 125 ml/hr-- switch to LR @ 75 ml/hr on 11/17 and discontinued IVF altogether on 11/19, continue to encourage PO intake -some mild SOB and wheezing on exam this morning, will give a 1 time dose of IV Lasix and discontinue IVF -Consult Nephrology, Dr Auguste, appreciate recs -renal ultrasound normal -urine studies reveal FeNa of 15.4% -temporary hemodialysis started on 11/14, had 800 mL removed on 11/14, 1000 mL on 11/15, 1400 mL on 11/17, HD again today -setting up for potential outpatient peritoneal dialysis -concern for acute glomerulonephritis -protein electrophoresis, ANCA pending -PERLA negative, anti-ds DNA negative -renal biopsy 11/16, results pending -placed on Epogen for borderline anemia -Consult Gen Surgery, Dr. Patton for dialysis catheter placement -placed on 11/16: peritoneal cath, left IJ central line, right IJ temp HD cath -will need outpatient follow up in 3-4 weeks -Consult Cardiology, Dr. Wooten for cardiac clearance for surgery-cleared 11/15 -patient with history of defibrillator placement by Dr. Wooten last year -monitor BMP -lactic acid 3.9 > 2.5, procal 0.29 -held metformin, lasix -avoid nephrotoxic agents #Diarrhea -persistent for 1 month, only 2 BMs since admission which were yellow & watery, denies any bright red or black/tarry stools -no recent travel, sick contacts or changes in diet -stool studies negative #Transaminitis -AST/ALT 58/91, likely 2/2 dehydration -will continue to monitor #Indeterminate trop -trend trop 0.05 > 0.034 > 0.044 -likely due to demand ischemia #Hypoglycemia -BG 48, given 2 amps D50 in ED -held metformin, added SSI -BG checks q4h, consider spacing out if BG stabilize #Abnormal ekg -widened QRS, new -calcium given in ED -admit to tele, will monitor #HFrEF - BNP 295 - has defibrillator, 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 Patient has been responding well to hemodialysis, repeat again today. Renal biopsy pending. Continue to monitor urine output and renal function. Encourage PO intake, monitor glucose checks. Anticipate discharge in >48hrs.
[2019-11-20] MEDS ORDERED: Furosemide 20 MG/2 ML VIAL SLOW IVP SCH (10:15)
[2019-11-20] MEDS: Carvedilol 6.25 MG TAB PO SCH ×3 (12:51→20:48)
[2019-11-20] MEDS: hydrALAZINE 10 MG TAB PO SCH ×3 (12:51→20:47)
[2019-11-20] MEDS: DULoxetine 60 MG CAP PO SCH (12:51)
[2019-11-20] MEDS: Isosorbide Dinitrate 5 MG TAB PO SCH ×3 (12:51→20:48)
[2019-11-20] MEDS: Sodium Bicarbonate Tab 325 MG TAB PO SCH ×3 (12:51→20:47)
[2019-11-20] MEDS: Ferrous Sulfate 325 MG TAB PO SCH ×2 (12:52→18:12)
[2019-11-20] MEDS: Atorvastatin Calcium 40 MG TAB PO SCH (12:52)
[2019-11-20] MEDS: busPIRone HCl 10 MG TAB PO SCH ×2 (12:52→20:48)
--- NOTE | 2019-11-20 13:30 | PRG ---
DATE OF SERVICE: I read the note of Dr. Machelle Espinosa and agree with her assessment and plan. Ms. Whyte is being followed for AURELIO on CKD as well as hypertension. She is also followed by the [facility]rology [facility] who have arranged hemodialysis where she is currently. She is being worked up for possible glomerulonephritis per the Nephrology service as a cause of her acute tubular necrosis and CKD. Job ID: [id number]
[2019-11-20 15:12] VITALS: BMI 28.3
[2019-11-20 17:38] LABS: Albumin-Ur 58.5 % (.); Alpha 1 - Ur 5.5 % (.); Alpha 2 - Ur 11.8 % (.); Gamma-Ur 11.1 % (.); M-Spike,% 3.9 % (Not Observed); Protein, Urine 108.7 mg/dL (Not Estab.)
[2019-11-20 17:38] LABS: A/G Ratio 1.5 (0.7-1.7); Albumin 2.9 g/dL (2.9-4.4); Alpha 1 0.2 g/dL (0.0-0.4); Alpha 2 0.7 g/dL (0.4-1.0); Beta 0.6 g/dL (0.7-1.3); Gamma 0.3 g/dL (0.4-1.8); Globulin, Total 1.9 g/dL (2.2-3.9); M-Spike Not Observed g/dL (Not Observed)
[2019-11-20] MEDS: Melatonin 3 MG TAB PO PRN (20:47)
[2019-11-21] MEDS: traMADol HCl 50 MG TAB PO PRN ×2 (02:07→21:21)
[2019-11-21 04:48] LABS: #Basophils 0.1 thou/uL (0.0-0.2); #Eosinphils 0.3 thou/uL (0.0-0.7); #Lymphocytes 1.2 thou/uL (1.20-3.40); #Monocytes 0.5 thou/uL (0.11-0.59); #Neutrophils 4.7 thou/uL (1.40-6.50); %Basophils 1.3 % (0.0-1.0); %Eosinophils 4.4 % (0.0-10.0); %Lymphocytes 17.8 % (21.0-51.0); %Monocytes 7.4 % (0.0-10.0); %Neutrophils 69.1 % (42.0-75.0); Hemoglobin 8.8 g/dL (12.0-16.0); Mean Corpuscular HGB CONC 33.7 g/dL (32.0-36.0); Mean Corpuscular Hemoglobin 33.4 pg (27.0-31.0); Mean Corpuscular Volume 99.1 fL (78.0-98.0); Mean Platelet Volume 9.5 fL (7.4-10.4); Platelet Count 128 thou/uL (130-400); RBC Distribution Width 11.4 % (11.5-14.5); Red Blood Cell (RBC) Count 2.64 mill/uL (4.20-5.40); White Blood Cell (WBC) Count 6.7 thou/uL (4.8-10.8)
[2019-11-21 05:15] LABS: ALT (SGPT) 70 U/L (8-55); AST (SGOT) 127 U/L (5-34); Albumin 2.5 g/dL (3.5-5.0); Alkaline Phosphatase 70 U/L (40-110); Anion Gap 12 mmol/L (10-20); BUN (Urea Nitrogen) 17 mg/dL (9.8-20.1); Bilirubin, Total 0.3 mg/dL (0.2-1.2); Calc. Creatinine Clearance 15 mL/min (70-130); Calcium 7.6 mg/dL (7.8-10.44); Carbon Dioxide 27 mmol/L (22-29); Chloride 104 mmol/L (98-107); Estimated GFR-MDRD 10; Globulin 1.9 g/dL (2.4-3.5); Glucose 122 mg/dL (70-105); Potassium 3.6 mmol/L (3.5-5.1); Protein, Total 4.4 g/dL (6.0-8.3); Sodium 139 mmol/L (136-145)
[2019-11-21] MEDS: Ferrous Sulfate 325 MG TAB PO SCH ×2 (08:14→16:54)
[2019-11-21] MEDS: Atorvastatin Calcium 40 MG TAB PO SCH (08:14)
[2019-11-21] MEDS: busPIRone HCl 10 MG TAB PO SCH ×2 (08:15→21:11)
[2019-11-21] MEDS: Carvedilol 6.25 MG TAB PO SCH ×3 (08:16→21:11)
[2019-11-21] MEDS: hydrALAZINE 10 MG TAB PO SCH ×3 (08:16→21:12)
[2019-11-21] MEDS: DULoxetine 60 MG CAP PO SCH (08:16)
[2019-11-21] MEDS: Sodium Bicarbonate Tab 325 MG TAB PO SCH ×3 (08:17→21:10)
[2019-11-21] MEDS: Isosorbide Dinitrate 5 MG TAB PO SCH ×3 (08:17→21:10)
[2019-11-21] MEDS ORDERED: Furosemide 20 MG/2 ML VIAL SLOW IVP SCH (09:15)
--- NOTE | 2019-11-21 09:24 | PRG ---
DATE OF SERVICE: 11/21/2019 SUBJECTIVE: Ms. Whyte is a 59-year-old white female, who was initially admitted for acute kidney injury secondary to volume depletion. Empiric volume repletion was given with no improvement in renal function. Consideration for a superimposed acute tubular necrosis was made. She underwent hemodialysis due to the unimproved renal function. Please note, the patient also had a PD catheter placed during this hospitalization since she prefers eventual peritoneal dialysis. The patient voices no new complaints today. She denies any chest pain or shortness of breath. OBJECTIVE: VITAL SIGNS: Blood pressure is 124/59, heart rate 72, respiratory rate 16, temperature 98.2, and O2 saturation 94%. GENERAL: The patient is awake, alert, and comfortable, not in distress. SKIN: Adequate turgor. HEENT: Slightly pale conjunctivae. Anicteric sclerae. NECK: No neck mass. No carotid bruits. No JVD. CHEST: No deformities. LUNGS: Clear breath sounds. HEART: Normal sinus rhythm. No murmurs, gallops, or rubs. ABDOMEN: Globular, soft, and nontender. Positive for PD catheter. EXTREMITIES: No edema. No deformities. MEDICATIONS: November 21, 2019, was reviewed. LABORATORY DATA: Laboratories of November 21, 2019; white count 6.7, hemoglobin 8.8. Sodium 139, potassium 3.6, chloride 104, carbon dioxide 27, BUN 17, creatinine 4.67, calcium 7.6, and albumin 2.5. ASSESSMENT AND PLAN: 1. Acute kidney injury-renal biopsy showed severe acute tubular necrosis with some wrinkling of the glomeruli. There were no other evidence for any superimposed glomerular disease. There is also found significant interstitial fibrosis 60% on the biopsy. Recovery cannot be determined at the present time. We will try to watch this patient for any possible recovery while she is in outpatient dialysis. If there is no significant recovery in the next several months, she will probably be a good candidate for renal transplantation. We will continue current Wednesday, Wednesday, and Wednesday hemodialysis. We are currently awaiting outpatient dialysis placement. 2. We will recheck CBC, basic metabolic profile. 3. Anemia, continue weekly Epogen. Job ID: [id number]
--- NOTE | 2019-11-21 11:43 | PDOC.FM ---
- Subjective Subjective: Patient feels better this morning. Does state her breathing improved after Lasix dose yesterday. States she ate half a sandwich and some oatmeal yesterday. Denies nausea and appetite improving. Denies any pain complaints. - Objective MAR Reviewed: Yes Vital Signs & Weight: Vital Signs (12 hours) Temp Pulse Resp BP Pulse Ox 11/21/19 08:20 97.7 F 70 18 165/79 H 98 11/21/19 08:16 72 11/21/19 03:47 98.2 F 72 16 124/59 L 94 L Weight Admit Weight 62.3 kg Weight 71.985 kg I&O: 11/20/19 11/21/19 11/22/19 06:59 06:59 06:59 Intake Total 600 600 Output Total 425 550 Balance 175 50 Result Diagrams: 11/21/19 04:02 11/21/19 04:02 Phys Exam - Physical Examination Constitutional: NAD HEENT: moist MMs, sclera anicteric Neck: no JVD, supple, full ROM Respiratory: clear to auscultation bilateral Cardiovascular: RRR, no significant murmur Gastrointestinal: soft, no distention Musculoskeletal: pulses present 1+ non pitting edema Neurological: normal sensation, moves all 4 limbs Psychiatric: normal affect, A&O x 3 Skin: no rash, normal turgor Dx/Plan (1) Acute kidney injury superimposed on CKD Code(s): N17.9 - ACUTE KIDNEY FAILURE, UNSPECIFIED; N18.9 - CHRONIC KIDNEY DISEASE, UNSPECIFIED Status: Acute (2) Diabetes mellitus, type II Status: Chronic Qualifiers: Diabetes mellitus halfway insulin use: without intermodal dispatcher use Diabetes mellitus complication status: with hypoglycemia Diabetes mellitus complication detail: without coma Qualified Code(s): E11.649 - Type 2 diabetes mellitus with hypoglycemia without coma (3) HTN (hypertension) Code(s): I10 - ESSENTIAL (PRIMARY) HYPERTENSION Status: Chronic Qualifiers: Hypertension type: essential hypertension Qualified Code(s): I10 - Essential (primary) hypertension - Plan Plan: Patient is a 59 yo female who presents with hypoglycemia and is found to have AURELIO: #AURELIO on CKD, improving -thought to initially be likely 2/2 dehydration vs diuretic use, now considering to be some component of superimposed ATN with additional concern for a rapidly progressive acute glomerulonephritis -->RENAL BIOPSY: shows severe ATN with some wrinkling of glomeruli. No other superimposed glomerular disease. Significant interstitial fibrosis of 60%. -admission BUN/Cr 74/11.94, K 5.8, previous Cr 1.72 -Cr trending, peak of 13.09 on 11/14, 6.43 today -1L LR bolus given in ED, continued on maintenance IVF D5NS @ 125 ml/hr-- switch to LR @ 75 ml/hr on 11/17 and discontinued IVF altogether on 11/19, continue to encourage PO intake -1 dose IV Lasix on 11/19, will repeat again today for gentle diuresis given clinical exam findings of mild fluid overload -Consult Nephrology, Dr Auguste, appreciate recs -renal ultrasound normal -urine studies reveal FeNa of 15.4% -temporary hemodialysis started on 11/14, had 800 mL removed on 11/14, 1000 mL on 11/15, 1400 mL on 11/17, HD again today -setting up outpatient peritoneal dialysis -concern for acute glomerulonephritis -protein electrophoresis, ANCA unremarkable -PERLA negative, anti-ds DNA negative -renal biopsy 11/16, results as above -placed on Epogen for borderline anemia, contine weekly dosing -recovery unable to be determined at this time, may be good candidate for renal transplant in the future if no sig recovery in next several months -Consult Gen Surgery, Dr. Patton for dialysis catheter placement -placed on 11/16: peritoneal cath, left IJ central line, right IJ temp HD cath -will need outpatient follow up in 3-4 weeks -Consult Cardiology, Dr. Wooten for cardiac clearance for surgery-cleared 11/15 -patient with history of defibrillator placement by Dr. Wooten last year -monitor BMP -lactic acid 3.9 > 2.5, procal 0.29 -held metformin, lasix -avoid nephrotoxic agents #Diarrhea -persistent for 1 month, only 2 BMs since admission which were yellow & watery, denies any bright red or black/tarry stools -no recent travel, sick contacts or changes in diet -stool studies negative #Transaminitis -AST/ALT 58/91, likely 2/2 dehydration -will continue to monitor #Indeterminate trop -trend trop 0.05 > 0.034 > 0.044 -likely due to demand ischemia #Hypoglycemia -BG 48, given 2 amps D50 in ED -held metformin, added SSI -BG checks ACHS now patient consistently tolerating PO #Abnormal ekg -widened QRS, new -calcium given in ED -admit to tele, will monitor #HFrEF - BNP 295 - 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 Patient has been responding well to hemodialysis, repeat again today. Renal biopsy shows severe ATN. Continue to monitor urine output and renal function. Encourage PO intake, monitor glucose checks. Anticipate discharge in >48hrs.
[2019-11-21 14:38] LABS: Cytoplasmic (C-ANCA) <1:20 titer (Neg:<1:20); Myeloperoxidase AutoAbs <9.0 U/mL (0.0-9.0); Perinuclear (P-ANCA) <1:20 titer (Neg:<1:20); Proteinase-3 AutoAbs Less than 3.5 U/mL (0.0-3.5)
--- NOTE | 2019-11-21 16:44 | PRG ---
DATE OF SERVICE: 11/21/2019 ADDENDUM: This is an addendum to the note of Dr. Machelle Espinosa. I have examined Ms. Whyte and agree with the assessment and plan of Dr. Machelle Espinosa. Job ID: [id number]
[2019-11-21] MEDS: Melatonin 3 MG TAB PO PRN (21:11)
[2019-11-22] MEDS: Acetaminophen 500 MG TAB PO PRN ×2 (03:01→15:10)
[2019-11-22 03:33] LABS: #Basophils 0.1 thou/uL (0.0-0.2); #Eosinphils 0.3 thou/uL (0.0-0.7); #Lymphocytes 1.1 thou/uL (1.20-3.40); #Monocytes 0.6 thou/uL (0.11-0.59); #Neutrophils 5.7 thou/uL (1.40-6.50); %Basophils 1.7 % (0.0-1.0); %Eosinophils 3.9 % (0.0-10.0); %Lymphocytes 14.4 % (21.0-51.0); %Monocytes 7.5 % (0.0-10.0); %Neutrophils 72.4 % (42.0-75.0); Hemoglobin 8.9 g/dL (12.0-16.0); Mean Corpuscular HGB CONC 33.3 g/dL (32.0-36.0); Mean Corpuscular Hemoglobin 33.1 pg (27.0-31.0); Mean Corpuscular Volume 99.3 fL (78.0-98.0); Platelet Count 166 thou/uL (130-400); RBC Distribution Width 11.4 % (11.5-14.5); White Blood Cell (WBC) Count 7.8 thou/uL (4.8-10.8)
[2019-11-22 03:53] LABS: ALT (SGPT) 68 U/L (8-55); AST (SGOT) 119 U/L (5-34); Albumin 2.7 g/dL (3.5-5.0); Alkaline Phosphatase 80 U/L (40-110); Anion Gap 10 mmol/L (10-20); BUN (Urea Nitrogen) 23 mg/dL (9.8-20.1); Bilirubin, Total 0.3 mg/dL (0.2-1.2); Calc. Creatinine Clearance 13 mL/min (70-130); Calcium 7.7 mg/dL (7.8-10.44); Carbon Dioxide 29 mmol/L (22-29); Chloride 103 mmol/L (98-107); Estimated GFR-MDRD 8; Glucose 105 mg/dL (70-105); Potassium 3.4 mmol/L (3.5-5.1); Protein, Total 4.7 g/dL (6.0-8.3); Sodium 139 mmol/L (136-145)
[2019-11-22] MEDS ORDERED: Potassium Chloride 20 MEQ TAB PO SCH (06:45)
--- NOTE | 2019-11-22 08:10 | PRG ---
DATE OF SERVICE: 11/22/2019 SUBJECTIVE: Ms. Whyte is a 59-year-old white female, who was admitted for an acute kidney injury. She underwent a CT scan-guided renal biopsy. It showed severe acute tubular necrosis. She is currently on maintenance hemodialysis. No new complaints today. No chest pain or shortness of breath. OBJECTIVE: VITAL SIGNS: Blood pressure 146/70, heart rate 72, respiratory rate 18, temperature 97.7, O2 saturation 96%. GENERAL: The patient is awake, alert, comfortable, not in distress. SKIN: Adequate turgor. HEENT: She has a slightly pale conjunctivae. Anicteric sclerae. NECK: No neck mass. No carotid bruits. No JVD. CHEST: No deformities. LUNGS: Clear breath sounds. No wheezing. No crackles. HEART: Normal sinus rhythm. No murmur. No gallops. No rubs. ABDOMEN: Globular, soft. Nontender, no masses. EXTREMITIES: No edema. No deformities. Please note, she has a PD catheter. MEDICATIONS: Medications of November 22, 2019, were reviewed. LABORATORY DATA: November 22, 2019; white count 7.8, hemoglobin 8.9, hematocrit 26.8. Sodium 139, potassium 3.4, chloride 103, carbon dioxide 29, BUN 53, creatinine 5.24, glucose 105. AST is 119, ALT 68. ASSESSMENT AND PLAN: 1. Acute kidney injury - secondary to acute tubular necrosis. Continue supportive hemodialysis. There is no evidence of renal recovery. She is still on the oliguric side. We are currently making arrangements for outpatient dialysis. Once in the outpatient dialysis setting, we will start training her for peritoneal dialysis. 2. Anemia. P.r.n. blood transfusion. Continue weekly Epogen regimen. 3. We will be rechecking a CBC basement, intact PTH and serum phosphorus with this patient. Job ID: [id number]
--- NOTE | 2019-11-22 09:16 | PDOC.FM ---
- Subjective Subjective: Patient feels well this morning. Breathing improved after Lasix dose yesterday. States she ate about 50% of meals yesterday. Denies nausea or appetite issues. Denies any pain complaints. - Objective MAR Reviewed: Yes Vital Signs & Weight: Vital Signs (12 hours) Temp Pulse Resp BP Pulse Ox 11/22/19 07:25 97.7 F 72 18 146/70 H 96 11/22/19 03:34 97.8 F 79 16 143/68 H 95 11/21/19 21:15 98.4 F 80 16 136/65 95 Weight Admit Weight 62.3 kg Weight 70.307 kg I&O: 11/21/19 11/22/19 11/23/19 06:59 06:59 06:59 Intake Total 600 620 Output Total 550 800 Balance 50 -180 Result Diagrams: 11/22/19 03:20 11/22/19 03:20 Phys Exam - Physical Examination Constitutional: NAD HEENT: moist MMs, sclera anicteric Neck: supple, full ROM Respiratory: no wheezing, clear to auscultation bilateral Cardiovascular: RRR, no significant murmur Gastrointestinal: soft, non-tender, no distention Musculoskeletal: no edema, pulses present Neurological: normal sensation, moves all 4 limbs Psychiatric: normal affect, A&O x 3 Skin: no rash Dx/Plan (1) Acute kidney injury superimposed on CKD Code(s): N17.9 - ACUTE KIDNEY FAILURE, UNSPECIFIED; N18.9 - CHRONIC KIDNEY DISEASE, UNSPECIFIED Status: Acute (2) Diabetes mellitus, type II Status: Chronic Qualifiers: Diabetes mellitus railroad inspector insulin use: without railroad inspector use Diabetes mellitus complication status: with hypoglycemia Diabetes mellitus complication detail: without coma Qualified Code(s): E11.649 - Type 2 diabetes mellitus with hypoglycemia without coma (3) HTN (hypertension) Code(s): I10 - ESSENTIAL (PRIMARY) HYPERTENSION Status: Chronic Qualifiers: Hypertension type: essential hypertension Qualified Code(s): I10 - Essential (primary) hypertension - Plan Plan: Patient is a 59 yo female who presents with hypoglycemia and is found to have AURELIO: #AURELIO on CKD, improving -thought to initially be likely 2/2 dehydration vs diuretic use, now confirmed to have severe ATN -->RENAL BIOPSY: shows severe ATN with some wrinkling of glomeruli. No other superimposed glomerular disease. Significant interstitial fibrosis of 60%. -admission BUN/Cr 74/11.94, K 5.8, previous Cr 1.72 -Cr trending, peak of 13.09 on 11/14, has been downtrending since initiation of hemodialysis -1L LR bolus given in ED, continued on maintenance IVF D5NS @ 125 ml/hr-- switch to LR @ 75 ml/hr on 11/17 and discontinued IVF altogether on 11/19, continue to encourage PO intake -1 dose IV Lasix on 11/19 & 11/20 will repeat prn for gentle diuresis if redevelops fluid overload -Consult Nephrology, Dr Auguste, appreciate recs -renal ultrasound normal -urine studies reveal FeNa of 15.4% -temporary hemodialysis started on 11/14, had 800 mL removed on 11/14, 1000 mL on 11/15, 1400 mL on 11/17, HD set up for MWF while inpatient -setting up outpatient peritoneal dialysis currently -concern for acute glomerulonephritis -protein electrophoresis, ANCA unremarkable; PERLA negative, anti-ds DNA negative -renal biopsy 11/16, results as above -placed on Epogen for borderline anemia, continue weekly dosing -recovery unable to be determined at this time, may be good candidate for renal transplant in the future if no sig recovery in next several months -Consult Gen Surgery, Dr. Patton for dialysis catheter placement -placed on 11/16: peritoneal cath, left IJ central line, right IJ temp HD cath -will need outpatient follow up in 3-4 weeks -Consult Cardiology, Dr. Wooten for cardiac clearance for surgery-cleared 11/15 -patient with history of defibrillator placement by Dr. Wooten last year -monitor BMP -lactic acid 3.9 > 2.5, procal 0.29 -held metformin, lasix -avoid nephrotoxic agents #Diarrhea -persistent for 1 month, only 2 BMs since admission which were yellow & watery, denies any bright red or black/tarry stools -no recent travel, sick contacts or changes in diet -stool studies negative including C. 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 Patient has been responding well to hemodialysis, repeat again today. Renal biopsy shows severe ATN. Continue to monitor urine output and renal function. Encourage PO intake, monitor glucose checks. Anticipate discharge in >48hrs pending outpatient peritoneal dialysis set up.
[2019-11-22] MEDS: Ferrous Sulfate 325 MG TAB PO SCH ×2 (11:30→16:50)
[2019-11-22] MEDS: Carvedilol 6.25 MG TAB PO SCH ×3 (11:31→21:15)
[2019-11-22] MEDS: Atorvastatin Calcium 40 MG TAB PO SCH (11:31)
[2019-11-22] MEDS: busPIRone HCl 10 MG TAB PO SCH ×2 (11:31→21:15)
[2019-11-22] MEDS: Isosorbide Dinitrate 5 MG TAB PO SCH ×3 (11:32→21:15)
[2019-11-22] MEDS: hydrALAZINE 10 MG TAB PO SCH ×3 (11:32→21:16)
[2019-11-22] MEDS: Sodium Bicarbonate Tab 325 MG TAB PO SCH ×3 (11:32→21:15)
[2019-11-22] MEDS: DULoxetine 60 MG CAP PO SCH (11:32)
[2019-11-22] MEDS ORDERED: Heparin 10,000 UNITS/ 10 ML VIAL ONE (11:35)
--- NOTE | 2019-11-22 12:16 | PRG ---
DATE OF SERVICE: Ms. Whyte is currently in dialysis, having dialysis with no complications. She is quite tearful as usual this morning. Arrangements were being made for her eventual use of peritoneal dialysis at home. Job ID: [id number]
--- NOTE | 2019-11-22 15:29 | CT ---
Addendum: In the body of the report, there was mention of needle being placed within the inferior josef e left kidney. That is incorrect, and the needle was placed in the inferior pole right kidney. Remainder of the report is correct. Reported By: [place] by [place]. PROCEDURE: CT Renal Perc Biopsy PROVIDED CLINICAL HISTORY: Acute renal insufficiency. COMPARISON: None TECHNIQUE: The procedure including the risks and complications were explained to the patient, and informed conse nt was obtained. The patient was placed on the CT scan table in the prone position. Limited noncontrasted CT scan was obtained through the level of the kidneys. An area overlying the inferior p ole right kidney was marked, and the area was meticulously prepped and draped in usual sterile fashion. The skin and subcutaneous tissues were infiltrated with buffered 1% lidocaine for local anesthesia. S mall skin incision was made. A 17-gauge guide needle was advanced followed by axial noncontrasted CT images. This was repeated until the needle was placed just within the peripheral posterolateral in ferior pole left kidney. Utilizing coaxial technique, a total of two 18-gauge core needle biopsy specimens were obtained. Pathologist was available for evaluation of the specimens, and glomeruli wer e seen in each obtained core biopsy specimen. The needle was removed, and hemostasis was achieved with direct pressure. A dry sterile dressing was placed. Patient was transported to her hospital room in stable condition. Patient tolerated the procedure well and without immediate complication. IMPRESSION: Technically successful random right renal biopsy. Transcribed Date/Time: 11/22/2019 3:28 PM
[2019-11-23] MEDS: traMADol HCl 50 MG TAB PO PRN (02:10)
[2019-11-23 05:54] LABS: #Basophils 0.1 thou/uL (0.0-0.2); #Eosinphils 0.4 thou/uL (0.0-0.7); #Lymphocytes 1.3 thou/uL (1.20-3.40); #Monocytes 0.7 thou/uL (0.11-0.59); #Neutrophils 6.9 thou/uL (1.40-6.50); %Basophils 0.9 % (0.0-1.0); %Eosinophils 3.8 % (0.0-10.0); %Lymphocytes 13.4 % (21.0-51.0); %Monocytes 7.7 % (0.0-10.0); %Neutrophils 74.2 % (42.0-75.0); Mean Corpuscular HGB CONC 33.8 g/dL (32.0-36.0); Mean Corpuscular Hemoglobin 33.3 pg (27.0-31.0); Mean Corpuscular Volume 98.6 fL (78.0-98.0); Mean Platelet Volume 8.9 fL (7.4-10.4); Platelet Count 199 thou/uL (130-400); RBC Distribution Width 11.6 % (11.5-14.5); Red Blood Cell (RBC) Count 2.72 mill/uL (4.20-5.40); White Blood Cell (WBC) Count 9.3 thou/uL (4.8-10.8)
[2019-11-23 06:15] LABS: ALT (SGPT) 62 U/L (8-55); AST (SGOT) 92 U/L (5-34); Albumin 2.8 g/dL (3.5-5.0); Alkaline Phosphatase 77 U/L (40-110); Anion Gap 12 mmol/L (10-20); BUN (Urea Nitrogen) 20 mg/dL (9.8-20.1); Bilirubin, Total 0.3 mg/dL (0.2-1.2); Calc. Creatinine Clearance 18 mL/min (70-130); Calcium 7.8 mg/dL (7.8-10.44); Carbon Dioxide 28 mmol/L (22-29); Chloride 105 mmol/L (98-107); Estimated GFR-MDRD 12; Globulin 2.2 g/dL (2.4-3.5); Glucose 102 mg/dL (70-105); Potassium 3.6 mmol/L (3.5-5.1); Sodium 141 mmol/L (136-145)
[2019-11-23 06:18] LABS: Phosphorus 1.8 mg/dL (2.3-4.7)
[2019-11-23] MEDS ORDERED: Calcitriol 0.25 MCG CAP PO SCH (09:00)
--- NOTE | 2019-11-23 09:09 | PRG ---
DATE OF SERVICE: 11/23/2019 SUBJECTIVE: Ms. Whyte is a 59-year-old white female, who was admitted for an acute kidney injury. She underwent renal biopsy, which showed severe acute tubular necrosis. Currently, she is on maintenance hemodialysis. No new complaints today. Breathing is improved after one time dose of Lasix. We are trying to max out fluid removal with the dialysis. OBJECTIVE: VITAL SIGNS: Blood pressure is noted at 137/69, heart rate 67, respiratory rate 15, temperature 97.4, and O2 saturation 96%. GENERAL: The patient is awake, alert, comfortable, not in distress. SKIN: Adequate turgor. HEENT: Slightly pale conjunctivae. Anicteric sclerae. NECK: No neck mass. No carotid bruits. No JVD. CHEST: No deformities. LUNGS: Clear breath sounds. No wheezing. No crackles. HEART: Normal sinus rhythm. No murmurs. No gallops. No rubs. ABDOMEN: Globular, soft, and nontender. No masses. Positive for PD catheter in the abdomen. EXTREMITIES: No edema. No deformities. MEDICATIONS: Medications of November 23, 2019, were reviewed. LABORATORY DATA: Laboratories of November 23, 2019; white count 9.3, hemoglobin 9. Sodium 141, potassium 3.6, chloride 105, carbon dioxide 28, BUN 20, creatinine 3.76, glucose 102, phosphorus is 1.8, calcium 7.8. AST 92, ALT 62. PTH is 330. ASSESSMENT AND PLAN: 1. Acute kidney injury-secondary to biopsy-proven acute tubular necrosis. Continue supportive care. No evidence of renal recovery. Continue current hemodialysis regimen. We are currently awaiting outpatient dialysis placement with this patient. 2. Secondary hyperparathyroidism. Start calcitriol 0.25 mcg tablet daily. 3. Decreased phosphorus-decreased p.o. intake. Encouraged the patient to increase her p.o. intake. I feel that this will eventually correct. 4. Anemia, continue weekly Epogen with this patient. Recheck CBC and basic met in a.m. Job ID: [id number]
[2019-11-23] MEDS: Carvedilol 6.25 MG TAB PO SCH ×2 (09:27→16:10)
[2019-11-23] MEDS: Atorvastatin Calcium 40 MG TAB PO SCH (09:27)
[2019-11-23] MEDS: busPIRone HCl 10 MG TAB PO SCH (09:27)
[2019-11-23] MEDS: Isosorbide Dinitrate 5 MG TAB PO SCH ×2 (09:27→16:11)
[2019-11-23] MEDS: Ferrous Sulfate 325 MG TAB PO SCH ×2 (09:27→16:10)
[2019-11-23] MEDS: DULoxetine 60 MG CAP PO SCH (09:28)
[2019-11-23] MEDS: hydrALAZINE 10 MG TAB PO SCH ×2 (09:28→16:11)
[2019-11-23] MEDS: Acetaminophen 500 MG TAB PO PRN (10:01)
--- NOTE | 2019-11-23 10:51 | PQF ---
CLINICAL DOCUMENTATION CLARIFICATION FORM: Dear Dr. Espinosa/ Attending Dr. Gonzalez Date: 11/23/2019 Please exercise your independent, professional judgment in responding to the clarification form. Clinical indicators are provided on the bottom of this form for your review. Please check appropriate box(es): HEART FAILURE ACUITY: [ ] Acute Systolic / HFrEF [ ] Acute on Chronic Systolic / HFrEF [ X ] Chronic Systolic / HFrEF [ ] Other diagnosis [ ] Unable to determine In addition, please specify: Present on Admission (POA): [X ] Yes [ ] No [ ] Unable to determine For continuity of documentation, please document condition throughout progress notes and discharge summary. Thank You. To be completed by CDI/Coding staff for physician review: CLINICAL INDICATORS - SIGNS / SYMPTOMS / LABS / RESULTS AND LOCATION IN EMR *11/19 pn (Jesús) HFrEF BNP 295 developed mild fluid overload over the weekend, will give 1 dose IV Lasix 20mg today, continue to monitor. *11/20 pn (Jesús) Subjective: Does state her breathing improved after Lasix dose yesterday. A/P HFrEF RISKS FACTORS / RESULTS AND LOCATION IN EMR H&P 11/12 (Osvaldo): PMH CKD, HFrEF, DMII; HTN; AICD placement 11/22 pn (Molina) AURELIO 2/2 biopsy proven acute tubular necrosis. TREATMENTS / RESULTS AND LOCATION IN EMR H&P 11/12 (Osvaldo) A/P: on IVF for dehydration, will monitor closely for fluid overload 11/18 Order Isordil 10 mg po TID 11/19 Order Lasix 20mg slow IVP now 11/20 Order Lasix 20mg slow IVP now Thank you, Lizzette Subramanian RN, BSN [email or web address] This is a permanent part of the Medical Record [facility]
--- NOTE | 2019-11-23 11:49 | PRG ---
DATE OF SERVICE: 11/23/2019 ADDENDUM: This is addendum to the note of Dr. Machelle Espinosa. Ms. Whyte is resting quietly in bed, in no distress. She has been visited again by Dr. Auguste. We appreciate his input. She has had no evidence of renal recovery. She is currently receiving hemodialysis and awaiting outpatient dialysis placement. Dr. Auguste has also started treatment for her secondary hyperparathyroidism with calcitriol and Epogen for her anemia of CKD. Job ID: [id number]
--- NOTE | 2019-11-23 12:53 | PDOC.FM ---
- Subjective Subjective: Patient feels well this morning. Breathing improved, denies SOB. States she ate about 50% of meals yesterday. Denies any pain complaints. - Objective MAR Reviewed: Yes Vital Signs & Weight: Vital Signs (12 hours) Temp Pulse Resp BP Pulse Ox 11/23/19 09:40 98.8 F 77 16 142/65 H 97 11/23/19 03:47 97.4 F L 67 15 137/69 96 Weight Admit Weight 62.3 kg Weight 71 kg I&O: 11/22/19 11/23/19 11/24/19 06:59 06:59 06:59 Intake Total 620 720 Output Total 800 675 Balance -180 45 Result Diagrams: 11/23/19 05:35 11/23/19 05:35 Phys Exam - Physical Examination Constitutional: NAD HEENT: moist MMs, sclera anicteric Neck: no JVD, supple Respiratory: clear to auscultation bilateral Cardiovascular: RRR, no significant murmur Gastrointestinal: soft, non-tender, no distention Musculoskeletal: no edema, pulses present Neurological: normal sensation, moves all 4 limbs Psychiatric: normal affect, A&O x 3 Skin: no rash Dx/Plan (1) Acute kidney injury superimposed on CKD Code(s): N17.9 - ACUTE KIDNEY FAILURE, UNSPECIFIED; N18.9 - CHRONIC KIDNEY DISEASE, UNSPECIFIED Status: Acute (2) Diabetes mellitus, type II Status: Chronic Qualifiers: Diabetes mellitus long term care administrator insulin use: without longterm use Diabetes mellitus complication status: with hypoglycemia Diabetes mellitus complication detail: without coma Qualified Code(s): E11.649 - Type 2 diabetes mellitus with hypoglycemia without coma (3) HTN (hypertension) Code(s): I10 - ESSENTIAL (PRIMARY) HYPERTENSION Status: Chronic Qualifiers: Hypertension type: essential hypertension Qualified Code(s): I10 - Essential (primary) hypertension - Plan Plan: Patient is a 59 yo female who presents with hypoglycemia and is found to have AURELIO: #AURELIO on CKD, improving -thought to initially be likely 2/2 dehydration vs diuretic use, now confirmed to have severe ATN -->RENAL BIOPSY: shows severe ATN with some wrinkling of glomeruli. No other superimposed glomerular disease. Significant interstitial fibrosis of 60%. -admission BUN/Cr 74/11.94, K 5.8, previous Cr 1.72 -Cr trending, peak of 13.09 on 11/14, has been downtrending since initiation of hemodialysis -1L LR bolus given in ED, continued on maintenance IVF D5NS @ 125 ml/hr-- switch to LR @ 75 ml/hr on 11/17 and discontinued IVF altogether on 11/19, continue to encourage PO intake -1 dose IV Lasix on 11/19 & 11/20 will repeat prn for gentle diuresis if redevelops fluid overload -Consult Nephrology, Dr Auguste, appreciate recs--pending outpatient dialysis set up prior to discharge -renal ultrasound normal -urine studies reveal FeNa of 15.4% -temporary hemodialysis started on 11/14, had 800 mL removed on 11/14, 1000 mL on 11/15, 1400 mL on 11/17, HD set up for MWF while inpatient -setting up outpatient peritoneal dialysis currently -concern for acute glomerulonephritis -protein electrophoresis, ANCA unremarkable; PERLA negative, anti-ds DNA negative -renal biopsy 11/16, results as above -placed on Epogen for borderline anemia, continue weekly dosing -recovery unable to be determined at this time, may be good candidate for renal transplant in the future if no sig recovery in next several months -Consult Gen Surgery, Dr. Patton for dialysis catheter placement -placed on 11/16: peritoneal cath, left IJ central line, right IJ temp HD cath -will need outpatient follow up in 3-4 weeks -Consult Cardiology, Dr. Wooten for cardiac clearance for surgery-cleared 11/15 -patient with history of defibrillator placement by Dr. Wooten last year -monitor BMP -lactic acid 3.9 > 2.5, procal 0.29 -held metformin, lasix -avoid nephrotoxic agents #Diarrhea -persistent for 1 month, only 2 BMs since admission which were yellow & watery, denies any bright red or black/tarry stools -no recent travel, sick contacts or changes in diet -stool studies negative including C. diff--does NOT need enteric precautions #Transaminitis -AST/ALT 58/91, likely 2/2 dehydration -will continue to monitor #Indeterminate trop -trend trop 0.05 > 0.034 > 0.044 -likely due to demand ischemia #Hypoglycemia -BG 48, given 2 amps D50 in ED -held metformin, added SSI -BG checks ACHS now patient consistently tolerating PO #Abnormal ekg -widened QRS, new -calcium given in ED -admit to tele, will monitor #HFrEF - BNP 295 - has defibrillator, Dr Wooten metaphysician - developed mild fluid overload over the weekend, improved after 2 doses IV Lasix 20 mg, continue to monitor - continue home meds Code: FULL PCP: JEROME Harris IVF: SL Diet: HH, Renal DVT ppx: heparin Lines: peritoneal cath, left IJ central line, right IJ temp HD cath Dispo: Stable, admit to inpatient on telemetry unit. Patient has been responding well to hemodialysis, is scheduled for //Wed outpatient dialysis pending insurance approval. Continue to monitor renal function. Encourage PO intake, monitor glucose checks. Anticipate discharge pending outpatient peritoneal dialysis set up.
[2019-11-23 16:19] VITALS: BP 129/65; TEMP 98.3
--- NOTE | 2019-11-24 03:49 | DIS ---
DATE OF ADMISSION: 11/13/2019 DATE OF DISCHARGE: 11/23/2019 RESIDENT: Machelle Espinosa DO. ADMITTING ATTENDING: Daniel Moreno MD. DISCHARGE ATTENDING: Nolberto Gonzalez MD. CONSULTS: 1. Nephrology, Dr. Auguste. 2. General Surgery, Dr. Patton. 3. Cardiology, Dr. Wooten. 4. Case management. 5. Dietary. 6. Physical Therapy. PROCEDURES: 1. Chest x-ray on November 13, 2019: No evidence for an acute cardiopulmonary process. Left subclavian cardiac pacing device is noted with clips overlying the expected locations of right atrium and right ventricle. 2. Renal ultrasound on November 14, 2019: No hydronephrosis. 3. Placement of right femoral vein Trialysis temporary catheter on November 15, 2019, by Dr. Patton. 4. Renal biopsy on November 17, 2019. 5. Placement of right internal jugular cuffed tunneled hemodialysis catheter, left internal jugular central line, fluoroscopy and ultrasound guided. Performed by Dr. Patton. 6. Laparoscopic double cuffed pigtail peritoneal dialysis catheter placement on November 17, 2019, by Dr. Patton. Laparoscopic omentopexy performed as well. Exploration of the right antecubital area noting non-existent antecubital veins. PRIMARY DIAGNOSIS: Acute kidney injury on chronic kidney disease, due to severe acute tubular necrosis of unknown origin. SECONDARY DIAGNOSES: 1. Transaminitis. 2. Indeterminate troponin secondary to demand ischemia, stable. 3. Diabetes mellitus. 4. Heart failure with reduced ejection fraction, stable. 5. Hemodialysis, new patient. DISCHARGE MEDICATIONS: 1. Carvedilol 12.5 mg p.o. t.i.d. 2. Atorvastatin 80 mg p.o. daily. 3. Buspirone HCL 15 mg p.o. b.i.d. 4. Metformin 500 mg p.o. b.i.d. 5. Duloxetine 60 mg p.o. daily. 6. Colchicine 0.6 mg p.o. b.i.d. 7. Furosemide 40 mg p.o. b.i.d. 8. Hydralazine 10 mg p.o. t.i.d. 9. Ferrous sulfate 325 mg p.o. b.i.d. 10. Isosorbide dinitrate 10 mg p.o. t.i.d. 11. Epogen 7500 units subcu weekly. 12. Calcitriol 0.25 mcg p.o. daily. DISCONTINUED MEDICATIONS: None. HISTORY OF PRESENT ILLNESS/HOSPITAL COURSE: The patient is a 59-year-old female with past medical history of chronic kidney disease, heart failure with reduced ejection fraction, and type 2 diabetes, who presented to the emergency department on November 13, 2019, with generalized weakness. The patient had reported nonbloody diarrhea daily with greater than 10 bowel movements per day for the prior month. She denied any recent antibiotic use, travel, or other sick contacts. The patient also reported little to no urination in the prior three days to admission. In the Emergency Department, the patient was given 1 L lactated Ringer's, calcium chloride 100 mg, Zofran 4 mg, and two amps of D50. She was admitted to inpatient on the telemetry floor for further evaluation. The patient was found upon admission to have an acute kidney injury with BUN of 74 and creatinine of 11.94. Also noted to have a potassium of 5.8. The patient's baseline previous creatinine prior to this admission was 1.72. The patient was continued on IV fluids for resuscitation. Nephrology, Dr. Auguste, was consulted. The patient's home metformin and Lasix were held as well as avoiding other nephrotoxic agents. The patient had a renal ultrasound performed on November 14, 2019, which was essentially normal. The patient continued to have IV fluid resuscitation until November 15, 2019, at which point her kidneys were not responding. Dr. Auguste discussed with the patient about proceeding with dialysis. A temporary dialysis catheter was placed in the femoral vein by Dr. Patton on November 15, 2019. The patient then proceeded to have a near daily hemodialysis treatments under the direction of Dr. Auguste. A renal biopsy was performed on November 17, 2019, this ultimately resulted with evidence of severe acute tubular necrosis with wrinkling of the glomeruli noted. No other superimposed glomerular disease. Significant interstitial fibrosis of 60%. Dr. Auguste felt that recovery of the kidneys is unable to be determined at this time. In the future, the patient may be a good candidate for renal transplant if there is no significant recovery in the next several months. The patient had outpatient peritoneal dialysis set up for Tuesdays, , and Saturdays. The patient had a hemodialysis catheter placed in the right internal jugular vein and a left internal jugular central line placed on November 17, 2019, by Dr. Patton. At that time, he also placed a peritoneal catheter. The patient proceeded to have good improvement in clinical condition over the following days. Insurance approval for peritoneal dialysis was achieved on November 23, 2019, at which point, the patient was deemed stable back to discharge home with plan for dialysis to resume on November 25, 2019, as an outpatient. She will follow up with Dr. Auguste in the clinic tomorrow for further management. Of note during the patient's hospital stay, she was also noted to have diarrhea initially. Stool studies including Clostridium difficile were negative. The patient was also noted to have an indeterminate troponin of 0.05 on admission. This was trended and ultimately trended down. Troponins were thought to be slightly elevated due to demand ischemia. The patient's catering administrative assistant, Dr. Wooten, also saw the patient in the hospital for evaluation of surgical clearance at the request of Dr. Patton. The patient's heart failure is in good control, she did require two doses of IV Lasix after several days of IV fluids. However, once IV fluids were discontinued, the patient's clinical condition greatly improved. DISPOSITION: Stable. DISCHARGE INSTRUCTIONS: 1. Location: Home. 2. Diet: Renal. 3. Activity: As tolerated. 4. Follow up with [facility] in [place], [place], on Wednesday, November 25, 2019, at 11:40 a.m. 5. Follow up with surgeon, Dr. Patton, in 3 to 4 weeks. 6. Follow up with Dr. Auguste on November 24, 2019. 7. Follow up with primary care provider, Dr. Bradley Harris early next week. Job ID: [id number]
== END 2019-11-23 17:58 | disposition home or self-care (01) | DRG 674 ==
LOC: ERS 17:17 → 2NO 20:00
PROVIDERS: ADMIT Family Medicine; ATTEND Family Medicine
PROC: 0T9B70Z Drainage of Bladder with Drainage Device, Via Natural or Artificial Opening (ICD-10-PCS; 2019-11-13)
PROC: 8E0ZXY6 Isolation (ICD-10-PCS; 2019-11-14)
PROC: 06HY33Z Insertion of Infusion Device into Lower Vein, Percutaneous Approach (ICD-10-PCS; 2019-11-15)
PROC: 5A1D70Z Performance of Urinary Filtration, Intermittent, Less than 6 Hours Per Day (ICD-10-PCS; principal; 2019-11-16)
PROC: 0WHG43Z Insertion of Infusion Device into Peritoneal Cavity, Percutaneous Endoscopic Approach (ICD-10-PCS; 2019-11-17)
PROC: 0JH63XZ Insertion of Tunneled Vascular Access Device into Chest Subcutaneous Tissue and Fascia, Percutaneous Approach (ICD-10-PCS; 2019-11-17)
PROC: 02H633Z Insertion of Infusion Device into Right Atrium, Percutaneous Approach (ICD-10-PCS; 2019-11-17)
PROC: B518ZZA Fluoroscopy of Superior Vena Cava, Guidance (ICD-10-PCS; 2019-11-17)
PROC: 02H633Z Insertion of Infusion Device into Right Atrium, Percutaneous Approach (ICD-10-PCS; 2019-11-17)
PROC: B548ZZA Ultrasonography of Superior Vena Cava, Guidance (ICD-10-PCS; 2019-11-17)
PROC: 0TB03ZX Excision of Right Kidney, Percutaneous Approach, Diagnostic (ICD-10-PCS; 2019-11-22)
DX: N17.0 Acute kidney failure with tubular necrosis (principal); I50.22 Chronic systolic (congestive) heart failure; I42.8 Other cardiomyopathies; E87.2 Acidosis; I13.2 Hypertensive heart and chronic kidney disease with heart failure and with stage 5 chronic kidney disease, or end stage renal disease; N18.6 End stage renal disease; N25.81 Secondary hyperparathyroidism of renal origin; Z20.828 Contact with and (suspected) exposure to other viral communicable diseases; E11.22 Type 2 diabetes mellitus with diabetic chronic kidney disease; E78.5 Hyperlipidemia, unspecified; E86.0 Dehydration; R19.7 Diarrhea, unspecified; E11.649 Type 2 diabetes mellitus with hypoglycemia without coma; R94.31 Abnormal electrocardiogram [ECG] [EKG]; G47.33 Obstructive sleep apnea (adult) (pediatric); J44.9 Chronic obstructive pulmonary disease, unspecified; E78.00 Pure hypercholesterolemia, unspecified; F17.210 Nicotine dependence, cigarettes, uncomplicated; E87.5 Hyperkalemia; I34.0 Nonrheumatic mitral (valve) insufficiency; R05 Cough; D63.1 Anemia in chronic kidney disease; Z88.1 Allergy status to other antibiotic agents; Z88.5 Allergy status to narcotic agent; Z88.8 Allergy status to other drugs, medicaments and biological substances; Z79.899 Other long term (current) drug therapy; Z79.84 Long term (current) use of oral hypoglycemic drugs; Z95.810 Presence of automatic (implantable) cardiac defibrillator
CPT/HCPCS: 36415; 36416; 50200; 71045; 76770; 77012; 80048; 80053; 80076; 82274; 82436; 82553; 82570; 83036; 83520; 83605; 83630; 83690; 83735; 83880; 83935; 83970; 84100; 84133; 84145; 84156; 84165; 84166; 84300; 84484; 85025; 85610; 85730; 86038; 86225; 86256; 86580; 86704; 86706; 86803; 87086; 87324; 87328; 87329; 87340; 87449; 87493; 87635; 88329; 90935; 93005; 93970; 94640; 96374; 96375; 96376; C1752; G0257; J0690; J1642; J1644; J1940; J2250; J2405; J3010; J7042; J7620; Q0162; Q5105; S0020; U0003

== ENCOUNTER 2020-01-10 10:00 | Emergency (ER) | payer BC ==
[~2020-01-10 10:00] MED LIST: Iopamidol-370 76% 500 ML 1 ML ONE
[2020-01-10 10:33] LABS: #Basophils 0.2 thou/uL (0.0-0.2); #Eosinphils 0.3 thou/uL (0.0-0.7); #Lymphocytes 3.8 thou/uL (1.20-3.40); #Monocytes 0.8 thou/uL (0.11-0.59); #Neutrophils 5.4 thou/uL (1.40-6.50); %Basophils 1.7 % (0.0-1.0); %Lymphocytes 35.8 % (21.0-51.0); %Monocytes 7.9 % (0.0-10.0); %Neutrophils 51.6 % (42.0-75.0); Hemoglobin 13.2 g/dL (12.0-16.0); Mean Corpuscular HGB CONC 33.2 g/dL (32.0-36.0); Mean Corpuscular Hemoglobin 32.7 pg (27.0-31.0); Mean Corpuscular Volume 98.4 fL (78.0-98.0); Mean Platelet Volume 10.1 fL (7.4-10.4); Platelet Count 183 thou/uL (130-400); RBC Distribution Width 12.8 % (11.5-14.5); Red Blood Cell (RBC) Count 4.04 mill/uL (4.20-5.40); White Blood Cell (WBC) Count 10.5 thou/uL (4.8-10.8)
[2020-01-10 10:53] LABS: ALT (SGPT) 99 U/L (8-55); AST (SGOT) 81 U/L (5-34); Albumin 4.3 g/dL (3.5-5.0); Alkaline Phosphatase 132 U/L (40-110); Anion Gap 16 mmol/L (10-20); BUN (Urea Nitrogen) 18 mg/dL (9.8-20.1); Bilirubin, Total 0.8 mg/dL (0.2-1.2); Calc. Creatinine Clearance 0 mL/min (70-130); Calcium 9.6 mg/dL (7.8-10.44); Carbon Dioxide 29 mmol/L (22-29); Chloride 102 mmol/L (98-107); Estimated GFR-MDRD 21; Globulin 2.6 g/dL (2.4-3.5); Glucose 118 mg/dL (70-105); Potassium 3.2 mmol/L (3.5-5.1); Protein, Total 6.9 g/dL (6.0-8.3); Sodium 144 mmol/L (136-145)
[2020-01-10 11:17] LABS: CKMB 1.5 ng/mL (0-6.6)
--- NOTE | 2020-01-10 11:26 | RAD ---
PORTABLE CHEST: HISTORY: Dyspnea. COMPARISON: 11/17/2019. FINDINGS: Lungs appear well aerated and clear on today's exam. No significant effusion. A large caliber centr al line overlies the SVC. AICD leads are unchanged. Vascular markings normal. Heart and mediastinu m unremarkable. IMPRESSION: No acute process. POS: [facility]
[2020-01-10 11:35] LABS: Bacteria/HPF None Seen HPF (None Seen); Bilirubin Negative (Negative); Blood, Urine Negative (Negative); Clarity Clear (Clear); Glucose, Urine (Dipstick) Normal (Negative); Ketone, Urine Negative (Negative); Leukocyte 75 Leu/uL (Negative); Nitrite Negative (Negative); Protein, Urine (Dipstick) 10 mg/dL (Neg-Trace); RBC/HPF 0-3 HPF (0-3); Specific Gravity, Urine 1.014 (1.002-1.036); Squamous Epithelial 0-3 HPF (0-3); Urobilinogen Normal mg/dL (Less than 2); pH, Urine 5.5 (5.0-9.0)
--- NOTE | 2020-01-10 13:35 | CT ---
CTA CHEST WITH CONTRAST: Date: 01/10/2020 Axial tomograms obtained with angio protocol. Multiplanar reconstruction and 3D postprocessing perfor med. INDICATION: Chest pain. Tachycardia. FINDINGS: Pulmonary arteries are adequately opacified. No evidence of pulmonary embolus identified. Artifact de grades evaluation of the pulmonary arteries beyond the bifurcations. Thoracic aorta is not well opacified and cannot be adequately assessed for dissection. No aneurysm. Mediastinum unremarkable with no evidence of adenopathy. The lung hua appear well aerated and clear. No evidence of infiltrate. No effusion. Upper abdomen unremarkable. Gallbladder is mildly distended and there is evidence of a fluid level in the gallbladder fundus which could represent dense sludge or gravel. Cholesterol stones will not be apparent on CT and consider gallbladder ultrasound as indicated. Also noted on images through the upper abdomen is small volume ascites around the liver margin anteri jose. There are also tiny pockets of extraluminal gas within this fluid around the anterior liver. Hi story states that the patient recently had peritoneal dialysis catheter placed and this extraluminal gas is presumably secondary to that procedure. Correlate clinically. Osseous structures unremarkable. IMPRESSION: 1. No evidence of pulmonary embolus. 2. No acute lung process. 3. Mildly distended gallbladder with evidence of fluid level in the gallbladder fundus. Consider fur ther evaluation with ultrasound. 4. Small volume ascites with fluid around the anterior liver margin and tiny pockets of extraluminal gas within this fluid anterior to the liver. History states recent placement of peritoneal dialysis catheter which would explain this finding. Please correlate clinically. POS: [facility]
[2020-01-10 14:49] LABS: Troponin I 0.095 ng/mL (< 0.028)
[2020-01-10] MEDS ORDERED: Potassium Chloride 20 MEQ TAB ONE (15:28)
[2020-01-10] MEDS ORDERED: Magnesium 2 GM/50 ML BAG (IN WATER) ONE (15:28)
--- NOTE | 2020-01-13 17:11 | EKG ---
Test Reason : TACHYCARDIA Blood Pressure : / mmHG Vent. Rate : 164 BPM Atrial Rate : 153 BPM P-R Int : 000 ms QRS Dur : 102 ms QT Int : 302 ms P-R-T Axes : 000 -41 194 degrees QTc Int : 498 ms Supraventricular tachycardia with frequent Premature ventricular complexes Left axis deviation Moderate voltage criteria for LVH, may be normal variant Marked ST abnormality, possible inferolateral subendocardial injury Abnormal ECG Confirmed by THAO WHITLEY DO ([id number]), index editor IMMANUEL DAY ([id number]) on 01/13/2020 5:10:28 PM Referred By: Confirmed By:THAO WHITLEY DO
== END 2020-01-10 16:47 | disposition home or self-care (01) ==
LOC: ERS 10:00
DX: E86.0 Dehydration (principal); R00.0 Tachycardia, unspecified; E78.5 Hyperlipidemia, unspecified; E78.00 Pure hypercholesterolemia, unspecified; F41.9 Anxiety disorder, unspecified; I11.0 Hypertensive heart disease with heart failure; I50.9 Heart failure, unspecified; Z87.891 Personal history of nicotine dependence; Z79.891 Long term (current) use of opiate analgesic; Z79.84 Long term (current) use of oral hypoglycemic drugs; Z79.899 Other long term (current) drug therapy
CPT/HCPCS: 36415; 71045; 71275; 80053; 81003; 81015; 82553; 83605; 83735; 84484; 85025; 85379; 93005; 94760; 96365; J3475; Q9967

== ENCOUNTER 2020-01-15 17:01 | Emergency (ER) | payer BC, SELFPAY ==
--- NOTE | 2020-01-15 17:46 | RAD ---
Portable frontal chest radiograph: 01/15/2020 COMPARISON: 01/10/2020 HISTORY: Positive blood cultures, cough, weakness FINDINGS: There is a stable right-sided dialysis catheter. Stable multilead AICD inserted via a left subclavian approach. No pneumothorax or pleural fluid. No focal consolidation or alveolar edema. IMPRESSION: No focal consolidation or alveolar edema.
[2020-01-15 17:51] LABS: #Basophils 0.1 thou/uL (0.0-0.2); #Eosinphils 0.1 thou/uL (0.0-0.7); #Monocytes 0.5 thou/uL (0.11-0.59); #Neutrophils 4.3 thou/uL (1.40-6.50); %Basophils 1.4 % (0.0-1.0); %Eosinophils 1.5 % (0.0-10.0); %Lymphocytes 28.9 % (21.0-51.0); %Monocytes 7.6 % (0.0-10.0); %Neutrophils 60.7 % (42.0-75.0); Hemoglobin 11.1 g/dL (12.0-16.0); Mean Corpuscular HGB CONC 34.9 g/dL (32.0-36.0); Mean Corpuscular Hemoglobin 33.8 pg (27.0-31.0); Mean Corpuscular Volume 96.7 fL (78.0-98.0); Mean Platelet Volume 9.6 fL (7.4-10.4); Platelet Count 142 thou/uL (130-400); RBC Distribution Width 12.7 % (11.5-14.5)
[2020-01-15] MEDS ORDERED: Clindamycin/D5W 900 mg/50 ml Premix Bag ONE (17:58)
[2020-01-15] MEDS ORDERED: Vancomycin 1 GM/200 ML BAG ONE (17:58)
[2020-01-15 18:15] LABS: ALT (SGPT) 99 U/L (8-55); AST (SGOT) 98 U/L (5-34); Albumin 3.5 g/dL (3.5-5.0); Alkaline Phosphatase 108 U/L (40-110); Anion Gap 15 mmol/L (10-20); BUN (Urea Nitrogen) 16 mg/dL (9.8-20.1); Bilirubin, Total 0.6 mg/dL (0.2-1.2); Calc. Creatinine Clearance 0 mL/min (70-130); Calcium 8.8 mg/dL (7.8-10.44); Carbon Dioxide 25 mmol/L (22-29); Chloride 103 mmol/L (98-107); Estimated GFR-MDRD 26; Globulin 2.4 g/dL (2.4-3.5); Glucose 97 mg/dL (70-105); Potassium 3.2 mmol/L (3.5-5.1); Protein, Total 5.9 g/dL (6.0-8.3); Sodium 140 mmol/L (136-145)
[2020-01-15 19:10] LABS: Bilirubin Negative (Negative); Blood, Urine Negative (Negative); Clarity Clear (Clear); Glucose, Urine (Dipstick) Normal (Negative); Ketone, Urine Negative (Negative); Leukocyte 250 Leu/uL (Negative); Nitrite Negative (Negative); Protein, Urine (Dipstick) Negative (Neg-Trace); RBC/HPF 0-3 HPF (0-3); Specific Gravity, Urine 1.012 (1.002-1.036); Squamous Epithelial 0-3 HPF (0-3); Urobilinogen Normal mg/dL (Less than 2)
[2020-01-15 19:15] LABS: Bacteria/HPF 1+ HPF (None Seen)
== END 2020-01-15 20:28 | disposition home or self-care (01) ==
LOC: ERS 17:01
DX: R78.81 Bacteremia (principal); R11.0 Nausea; I11.0 Hypertensive heart disease with heart failure; I50.9 Heart failure, unspecified; E78.5 Hyperlipidemia, unspecified; F41.9 Anxiety disorder, unspecified; Z87.891 Personal history of nicotine dependence; Z79.899 Other long term (current) drug therapy
CPT/HCPCS: 71045; 80053; 81003; 81015; 83605; 85025; 87040; 87086; 93005; 96365; 96367; J3370; J3490

== ENCOUNTER 2020-06-09 14:52 | Inpatient (IN) | payer BC, MEDICARE ==
[2020-06-09] MEDS ORDERED: Aspirin Chewable 81 MG TAB ONE (15:44)
[2020-06-09 15:50] LABS: Albumin 3.5 g/dL (3.5-5.0); Bilirubin, Total 0.4 mg/dL (0.2-1.2); Calcium 8.6 mg/dL (7.8-10.44); Carbon Dioxide 18 mmol/L (22-29); Chloride 110 mmol/L (98-107); Globulin 2.7 g/dL (2.4-3.5); Glucose 98 mg/dL (70-105); Potassium 5.1 mmol/L (3.5-5.1); Protein, Total 6.2 g/dL (6.0-8.3); Sodium 140 mmol/L (136-145)
[2020-06-09 15:51] LABS: Alkaline Phosphatase 92 U/L (40-110)
[2020-06-09 15:52] LABS: Calc. Creatinine Clearance 0 mL/min (70-130)
[2020-06-09 15:53] LABS: BUN (Urea Nitrogen) 34 mg/dL (9.8-20.1)
[2020-06-09 15:54] LABS: ALT (SGPT) 24 U/L (8-55); AST (SGOT) 32 U/L (5-34)
[2020-06-09 15:55] LABS: Lipase 43 U/L (8-78)
[2020-06-09 15:56] LABS: #Basophils 0.1 thou/uL (0.0-0.2); #Eosinphils 0.2 thou/uL (0.0-0.7); #Lymphocytes 1.9 thou/uL (1.20-3.40); #Monocytes 0.8 thou/uL (0.11-0.59); %Basophils 0.9 % (0.0-1.0); %Eosinophils 2.2 % (0.0-10.0); %Lymphocytes 17.3 % (21.0-51.0); %Monocytes 7.2 % (0.0-10.0); %Neutrophils 72.5 % (42.0-75.0); Hemoglobin 11.1 g/dL (12.0-16.0); Mean Corpuscular HGB CONC 32.9 g/dL (32.0-36.0); Mean Corpuscular Hemoglobin 34.4 pg (27.0-31.0); Mean Platelet Volume 8.3 fL (7.4-10.4); Platelet Count 203 thou/uL (130-400); RBC Distribution Width 11.7 % (11.5-14.5); Red Blood Cell (RBC) Count 3.23 mill/uL (4.20-5.40)
[2020-06-09] MEDS ORDERED: Calcium Chloride 1 GM/10 ML Abboject SYRINGE ONE (15:57)
[2020-06-09] MEDS ORDERED: Sodium Bicarb 50 MEQ/50 ML Abboject 8.4% SYRINGE ONE (15:58)
[2020-06-09 16:05] LABS: Anion Gap 16 mmol/L (10-20)
[2020-06-09 16:12] LABS: CKMB 2.1 ng/mL (0-6.6)
[2020-06-09 16:19] LABS: Bilirubin Negative (Negative); Blood, Urine Negative (Negative); Clarity Clear (Clear); Glucose, Urine (Dipstick) Normal (Negative); Ketone, Urine Negative (Negative); Leukocyte Negative Leu/uL (Negative); Nitrite Negative (Negative); Protein, Urine (Dipstick) Negative (Neg-Trace); Specific Gravity, Urine 1.013 (1.002-1.036); Urobilinogen Normal mg/dL (Less than 2); pH, Urine 6.5 (5.0-9.0)
[2020-06-09] MEDS ORDERED: Nitroglycerin 2% Ointment 1 INCH/1 GM Packet ONE (16:56)
[2020-06-09] MEDS ORDERED: Furosemide 40 MG/4 ML VIAL ONE (16:56)
[2020-06-09] MEDS ORDERED: Fentanyl 100 MCG/2 ML VIAL ONE ×2 (17:09→18:08)
[2020-06-09] MEDS ORDERED: Nitroglycerin 0.4 MG TAB (25 Tab Bottle) SL PRN (18:57)
[2020-06-09 19:13] LABS: Troponin I 0.083 ng/mL (< 0.028)
[2020-06-09] MEDS ORDERED: HumaLOG 300 UNITS/3 ML VIAL SC PRN ×2 (19:34)
[2020-06-09] MEDS ORDERED: Dextrose 5% in Water 1,000 ML IV PRN (19:34)
[2020-06-09] MEDS ORDERED: Dextrose 50% Abboject 50 ML SYRINGE SLOW IVP PRN (19:34)
[2020-06-09] MEDS ORDERED: hydrALAZINE 20 MG/ML VIAL SLOW IVP PRN (20:14)
[2020-06-09] MEDS: busPIRone HCl 10 MG TAB PO SCH (20:52)
[2020-06-09] MEDS: Colchicine 0.6 MG TAB PO SCH (20:56)
[2020-06-09] MEDS: Acetaminophen 325 MG TAB PO PRN (20:58)
[2020-06-09 22:30] LABS: Troponin I 0.129 ng/mL (< 0.028)
[2020-06-10] MEDS ORDERED: diphenhydrAMINE 25 MG CAP PO SCH (00:15)
[2020-06-10] MEDS ORDERED: Metoclopramide HCl 10 MG/2 ML VIAL IVP SCH (00:15)
[2020-06-10 01:34] LABS: Troponin I 0.135 ng/mL (< 0.028)
[2020-06-10 05:28] LABS: SARS-CoV-2 PCR by NAA Not Detected (NotDetected)
[2020-06-10 06:03] VITALS: BMI 21.2
[2020-06-10 06:42] LABS: Anion Gap 15 mmol/L (10-20); BUN (Urea Nitrogen) 33 mg/dL (9.8-20.1); Calc. Creatinine Clearance 33 mL/min (70-130); Calcium 9.4 mg/dL (7.8-10.44); Carbon Dioxide 26 mmol/L (22-29); Cardiac Risk 1.9 (Less than 4.5); Chloride 103 mmol/L (98-107); Cholesterol 197 mg/dl (< 200 Desired); Glucose 83 mg/dL (70-105); HDL Cholesterol 106 mg/dL (>60 Neg Risk); LDL Cholesterol, Calculated 78 mg/dL; Sodium 140 mmol/L (136-145); Triglycerides 67 mg/dL (Less than 150)
[2020-06-10] MEDS ORDERED: Carvedilol 3.125 MG TAB PO SCH (08:00)
[2020-06-10] MEDS ORDERED: Furosemide 40 MG/4 ML VIAL SLOW IVP SCH ×2 (09:00)
[2020-06-10 09:08] LABS: Troponin I 0.128 ng/mL (< 0.028)
[2020-06-10] MEDS: Colchicine 0.6 MG TAB PO SCH ×2 (09:19→21:41)
[2020-06-10] MEDS: busPIRone HCl 10 MG TAB PO SCH ×2 (09:19→21:40)
[2020-06-10] MEDS: Ezetimibe 10 MG TAB PO SCH (09:20)
[2020-06-10] MEDS: Cyanocobalamin (Vitamin B-12) 1,000 MCG TAB PO SCH (09:20)
[2020-06-10] MEDS: Atorvastatin Calcium 40 MG TAB PO SCH (09:20)
[2020-06-10] MEDS: Acetaminophen 325 MG TAB PO PRN (09:21)
[2020-06-10] MEDS: Enoxaparin Sodium 40 MG/0.4 ML SYRINGE SC SCH (09:21)
[2020-06-10] MEDS: DULoxetine 60 MG CAP PO SCH (09:21)
[2020-06-10] MEDS: Fluticasone Propionate Nasal Spray 16 gm Bottle NASAL SCH (09:22)
[2020-06-10] MEDS ORDERED: Metoclopramide HCl 10 MG TAB PO SCH (11:45)
[2020-06-10 12:37] LABS: Band 5 % (5-11); Eosinophils 1 % (0-10); Hemoglobin 12.4 g/dL (12.0-16.0); Lymphocytes 18 % (21-51); MDiff Complete? YES; Mean Corpuscular HGB CONC 34.8 g/dL (32.0-36.0); Mean Corpuscular Hemoglobin 36.2 pg (27.0-31.0); Mean Platelet Volume 10.1 fL (7.4-10.4); Monocytes 8 % (0-10); Neutrophil 68 % (42-75); Platelet Count 174 thou/uL (130-400); RBC Distribution Width 11.8 % (11.5-14.5); RBC Morphology Normal; Red Blood Cell (RBC) Count 3.43 mill/uL (4.20-5.40); White Blood Cell (WBC) Count 7.2 thou/uL (4.8-10.8)
[2020-06-10] MEDS: traMADol HCl 50 MG TAB PO PRN (14:15)
[2020-06-10] MEDS: Carvedilol 3.125 MG TAB PO SCH (21:41)
[2020-06-10] MEDS: Melatonin 3 MG TAB PO PRN (22:36)
[2020-06-11] MEDS: Furosemide 20 MG/2 ML VIAL SLOW IVP SCH ×2 (05:54→14:29)
[2020-06-11 06:20] LABS: #Eosinphils 0.3 thou/uL (0.0-0.7); #Lymphocytes 1.8 thou/uL (1.20-3.40); #Monocytes 0.4 thou/uL (0.11-0.59); #Neutrophils 3.3 thou/uL (1.40-6.50); %Basophils 0.8 % (0.0-1.0); %Eosinophils 4.4 % (0.0-10.0); %Lymphocytes 31.3 % (21.0-51.0); %Monocytes 7.1 % (0.0-10.0); %Neutrophils 56.4 % (42.0-75.0); Hemoglobin 11.8 g/dL (12.0-16.0); Mean Corpuscular HGB CONC 32.4 g/dL (32.0-36.0); Mean Corpuscular Hemoglobin 33.5 pg (27.0-31.0); Mean Platelet Volume 8.5 fL (7.4-10.4); Platelet Count 197 thou/uL (130-400); RBC Distribution Width 11.7 % (11.5-14.5); Red Blood Cell (RBC) Count 3.53 mill/uL (4.20-5.40); White Blood Cell (WBC) Count 5.8 thou/uL (4.8-10.8)
[2020-06-11 06:46] LABS: Anion Gap 14 mmol/L (10-20); BUN (Urea Nitrogen) 33 mg/dL (9.8-20.1); Calc. Creatinine Clearance 32 mL/min (70-130); Calcium 8.7 mg/dL (7.8-10.44); Carbon Dioxide 25 mmol/L (22-29); Chloride 103 mmol/L (98-107); Glucose 104 mg/dL (70-105); Potassium 3.9 mmol/L (3.5-5.1); Sodium 138 mmol/L (136-145)
[2020-06-11] MEDS: Atorvastatin Calcium 40 MG TAB PO SCH (07:46)
[2020-06-11] MEDS: DULoxetine 60 MG CAP PO SCH (07:47)
[2020-06-11] MEDS: busPIRone HCl 10 MG TAB PO SCH ×2 (07:47→21:28)
[2020-06-11] MEDS: Carvedilol 3.125 MG TAB PO SCH ×2 (07:48→21:29)
[2020-06-11] MEDS: Cyanocobalamin (Vitamin B-12) 1,000 MCG TAB PO SCH (07:48)
[2020-06-11] MEDS: Colchicine 0.6 MG TAB PO SCH ×2 (07:48→21:29)
[2020-06-11] MEDS: Ezetimibe 10 MG TAB PO SCH (07:48)
[2020-06-11] MEDS: Acetaminophen 325 MG TAB PO PRN (07:49)
[2020-06-11] MEDS: Fluticasone Propionate Nasal Spray 16 gm Bottle NASAL SCH (07:54)
[2020-06-11] MEDS: Enoxaparin Sodium 40 MG/0.4 ML SYRINGE SC SCH (11:02)
[2020-06-11] MEDS: hydrOXYzine 10 MG TAB PO PRN ×3 (11:02→21:30)
[2020-06-11] MEDS: Melatonin 3 MG TAB PO PRN (21:30)
[2020-06-12 05:55] LABS: Anion Gap 17 mmol/L (10-20); BUN (Urea Nitrogen) 40 mg/dL (9.8-20.1); Calc. Creatinine Clearance 28 mL/min (70-130); Calcium 9.4 mg/dL (7.8-10.44); Carbon Dioxide 23 mmol/L (22-29); Chloride 103 mmol/L (98-107); Glucose 110 mg/dL (70-105); Potassium 3.8 mmol/L (3.5-5.1); Sodium 139 mmol/L (136-145)
[2020-06-12] MEDS: Furosemide 20 MG/2 ML VIAL SLOW IVP SCH ×2 (06:26→17:03)
[2020-06-12] MEDS: Cyanocobalamin (Vitamin B-12) 1,000 MCG TAB PO SCH (09:07)
[2020-06-12] MEDS: Ezetimibe 10 MG TAB PO SCH (09:07)
[2020-06-12] MEDS: Colchicine 0.6 MG TAB PO SCH ×2 (09:07→20:34)
[2020-06-12] MEDS: busPIRone HCl 10 MG TAB PO SCH ×2 (09:07→20:33)
[2020-06-12] MEDS: Atorvastatin Calcium 40 MG TAB PO SCH (09:07)
[2020-06-12] MEDS: DULoxetine 60 MG CAP PO SCH (09:07)
[2020-06-12] MEDS: Carvedilol 3.125 MG TAB PO SCH ×2 (09:10→20:34)
[2020-06-12] MEDS: Fluticasone Propionate Nasal Spray 16 gm Bottle NASAL SCH (09:11)
[2020-06-12] MEDS: Enoxaparin Sodium 40 MG/0.4 ML SYRINGE SC SCH (09:11)
[2020-06-12] MEDS ORDERED: Iopamidol 370 76% 50 ML VIAL FS ONE (12:16)
[2020-06-12] MEDS ORDERED: CEFAZOLIN 1 GM VIAL ONE (13:19)
[2020-06-12] MEDS ORDERED: Gentamicin 80 MG/2 ML VIAL ONE (13:19)
[2020-06-12] MEDS ORDERED: Lidocaine 1% (PF) 30 ML VIAL ONE (13:19)
[2020-06-12] MEDS ORDERED: Propofol 1,000 MG/100 ML VIAL IV ONE (13:40)
[2020-06-12] MEDS ORDERED: Fentanyl 100 MCG/2 ML VIAL ONE ×2 (13:40→16:03)
[2020-06-12] MEDS ORDERED: Lidocaine 1% PF 5 ML VIAL ONE (14:13)
[2020-06-12] MEDS ORDERED: PROPOFOL 200 MG/20 ML VIAL ONE (14:13)
[2020-06-12] MEDS ORDERED: Ondansetron PF 4 MG/2 ML Vial ONE (14:13)
[2020-06-12] MEDS: Doxycycline 100 MG CAP PO SCH (17:04)
[2020-06-12] MEDS: hydrOXYzine 10 MG TAB PO PRN (20:34)
[2020-06-12] MEDS: traMADol HCl 50 MG TAB PO PRN (20:34)
[2020-06-12] MEDS: Melatonin 3 MG TAB PO PRN (20:34)
[2020-06-13] MEDS: traMADol HCl 50 MG TAB PO PRN ×3 (01:39→10:26)
[2020-06-13] MEDS: Doxycycline 100 MG CAP PO SCH ×2 (05:32→16:40)
[2020-06-13] MEDS: Furosemide 20 MG/2 ML VIAL SLOW IVP SCH ×2 (05:32→15:07)
[2020-06-13 06:30] LABS: Anion Gap 12 mmol/L (10-20); BUN (Urea Nitrogen) 35 mg/dL (9.8-20.1); Calc. Creatinine Clearance 30 mL/min (70-130); Calcium 8.9 mg/dL (7.8-10.44); Carbon Dioxide 27 mmol/L (22-29); Chloride 103 mmol/L (98-107); Glucose 92 mg/dL (70-105); Potassium 4.4 mmol/L (3.5-5.1); Sodium 138 mmol/L (136-145)
[2020-06-13] MEDS ORDERED: Enoxaparin Sodium 30 MG/0.3 ML SYRINGE SC SCH (09:00)
[2020-06-13] MEDS: Ezetimibe 10 MG TAB PO SCH (09:16)
[2020-06-13] MEDS: Atorvastatin Calcium 40 MG TAB PO SCH (09:16)
[2020-06-13] MEDS: Cyanocobalamin (Vitamin B-12) 1,000 MCG TAB PO SCH (09:17)
[2020-06-13] MEDS: DULoxetine 60 MG CAP PO SCH (09:17)
[2020-06-13] MEDS: busPIRone HCl 10 MG TAB PO SCH ×2 (09:18→20:01)
[2020-06-13] MEDS: Colchicine 0.6 MG TAB PO SCH ×2 (09:19→20:03)
[2020-06-13] MEDS: Carvedilol 3.125 MG TAB PO SCH ×2 (09:19→20:03)
[2020-06-13] MEDS: Fluticasone Propionate Nasal Spray 16 gm Bottle NASAL SCH (09:20)
[2020-06-13] MEDS: Melatonin 3 MG TAB PO PRN (20:08)
[2020-06-14] MEDS: traMADol HCl 50 MG TAB PO PRN ×2 (00:10→11:16)
[2020-06-14 04:27] LABS: #Basophils 0.1 thou/uL (0.0-0.2); #Eosinphils 0.5 thou/uL (0.0-0.7); #Lymphocytes 1.9 thou/uL (1.20-3.40); #Monocytes 0.9 thou/uL (0.11-0.59); #Neutrophils 5.2 thou/uL (1.40-6.50); %Basophils 0.8 % (0.0-1.0); %Eosinophils 5.5 % (0.0-10.0); %Lymphocytes 21.8 % (21.0-51.0); %Monocytes 10.3 % (0.0-10.0); %Neutrophils 61.5 % (42.0-75.0); Hemoglobin 13.2 g/dL (12.0-16.0); Mean Corpuscular HGB CONC 33.6 g/dL (32.0-36.0); Mean Corpuscular Hemoglobin 34.7 pg (27.0-31.0); Mean Platelet Volume 8.7 fL (7.4-10.4); Platelet Count 201 thou/uL (130-400); RBC Distribution Width 11.4 % (11.5-14.5); White Blood Cell (WBC) Count 8.5 thou/uL (4.8-10.8)
[2020-06-14] MEDS: Doxycycline 100 MG CAP PO SCH (05:28)
[2020-06-14] MEDS: Furosemide 20 MG/2 ML VIAL SLOW IVP SCH (05:28)
[2020-06-14 05:31] LABS: Anion Gap 14 mmol/L (10-20); BUN (Urea Nitrogen) 37 mg/dL (9.8-20.1); Calc. Creatinine Clearance 26 mL/min (70-130); Calcium 9.4 mg/dL (7.8-10.44); Carbon Dioxide 28 mmol/L (22-29); Chloride 99 mmol/L (98-107); Glucose 124 mg/dL (70-105); Sodium 137 mmol/L (136-145)
[2020-06-14] MEDS ORDERED: Ondansetron ODT 4 MG TAB PO SCH (07:00)
[2020-06-14] MEDS: busPIRone HCl 10 MG TAB PO SCH (10:07)
[2020-06-14] MEDS: Carvedilol 3.125 MG TAB PO SCH (10:08)
[2020-06-14] MEDS: Cyanocobalamin (Vitamin B-12) 1,000 MCG TAB PO SCH (10:08)
[2020-06-14] MEDS: DULoxetine 60 MG CAP PO SCH (10:08)
[2020-06-14] MEDS: Colchicine 0.6 MG TAB PO SCH (10:08)
[2020-06-14] MEDS: Atorvastatin Calcium 40 MG TAB PO SCH (10:08)
[2020-06-14] MEDS: Ezetimibe 10 MG TAB PO SCH (10:08)
[2020-06-14 11:34] VITALS: BP 128/66; TEMP 98.3
[2020-06-14] MEDS ORDERED: Furosemide 20 MG TAB PO SCH (14:00)
== END 2020-06-14 13:13 | disposition home or self-care (01) | DRG 226 ==
LOC: ERS 14:52 → 2SW 17:01 → OBSVTOIN 06-10 15:11 → 2NO 06-11 15:11
PROVIDERS: ADMIT Student in an Organized Health Care Education/Training Program; ATTEND Student in an Organized Health Care Education/Training Program
PROC: 3E1M39Z Irrigation of Peritoneal Cavity using Dialysate, Percutaneous Approach (ICD-10-PCS; principal; 2020-06-10)
PROC: 0JH608Z Insertion of Defibrillator Generator into Chest Subcutaneous Tissue and Fascia, Open Approach (ICD-10-PCS; 2020-06-12)
PROC: 02HL3KZ Insertion of Defibrillator Lead into Left Ventricle, Percutaneous Approach (ICD-10-PCS; 2020-06-12)
PROC: 0JPT0PZ Removal of Cardiac Rhythm Related Device from Trunk Subcutaneous Tissue and Fascia, Open Approach (ICD-10-PCS; 2020-06-12)
PROC: 02HK3KZ Insertion of Defibrillator Lead into Right Ventricle, Percutaneous Approach (ICD-10-PCS; 2020-06-12)
DX: I13.2 Hypertensive heart and chronic kidney disease with heart failure and with stage 5 chronic kidney disease, or end stage renal disease (principal); I50.23 Acute on chronic systolic (congestive) heart failure; I21.A1 Myocardial infarction type 2; N18.6 End stage renal disease; N17.0 Acute kidney failure with tubular necrosis; I47.2 Ventricular tachycardia; I25.5 Ischemic cardiomyopathy; E11.22 Type 2 diabetes mellitus with diabetic chronic kidney disease; E78.5 Hyperlipidemia, unspecified; F41.9 Anxiety disorder, unspecified; F32.9 Major depressive disorder, single episode, unspecified; D53.9 Nutritional anemia, unspecified; I25.10 Atherosclerotic heart disease of native coronary artery without angina pectoris; I34.0 Nonrheumatic mitral (valve) insufficiency; I44.7 Left bundle-branch block, unspecified; Z88.1 Allergy status to other antibiotic agents; Z87.891 Personal history of nicotine dependence; Z99.2 Dependence on renal dialysis; Z88.5 Allergy status to narcotic agent; Z95.810 Presence of automatic (implantable) cardiac defibrillator
CPT/HCPCS: 33224; 33263; 36005; 36415; 36416; 71045; 75820; 76942; 80048; 80053; 80061; 81003; 82553; 82607; 82746; 83690; 83735; 83880; 84443; 84484; 85025; 87635; 93005; 93010; 93641; 94760; 96372; 96374; 96375; 96376; C1882; C1900; G0378; J0690; J1580; J1650; J1940; J2001; J2405; J2704; J2765; J3010; Q0162; Q0163; Q9967; U0003; U0005

== ENCOUNTER 2020-07-26 12:25 | Outpatient (CLI) | payer BC ==
[~2020-07-26 12:25] MED LIST changes: -Iopamidol-370 76% 500 ML 1 ML ONE; +Sodium Bicarbonate Tab 325 MG TAB PO SCH; +Sodium Chloride 0.9% 1,000 ML IV SCH
[2020-07-26 13:31] LABS: #Basophils 0.1 10x3/uL (0.0-0.2); #Eosinphils 0.2 10x3/uL (0.0-0.5); #Monocytes 0.6 10x3/uL (0.0-1.1); #Neutrophils 3.8 10x3/uL (1.5-8.4); %Basophils 0.9 % (0.0-2.0); %Eosinophils 2.4 % (0.0-6.0); %Lymphocytes 28.2 % (18.0-47.0); %Monocytes 9.1 % (0.0-10.0); %Neutrophils 59.1 % (40.0-75.0); Hemoglobin 12.3 g/dL (12.0-15.5); Mean Corpuscular HGB CONC 32.2 g/dL (32.0-36.0); Mean Corpuscular Hemoglobin 32.9 pg (27.0-33.0); Mean Corpuscular Volume 102.1 fl (81.6-98.3); Mean Platelet Volume 11.6 fl (7.4-10.4); Platelet Count 225 10x3/uL (150-450); RBC Distribution Width 11.8 % (11.5-14.5); Red Blood Cell (RBC) Count 3.74 10x6/uL (3.90-5.03); White Blood Cell (WBC) Count 6.4 10x3/uL (3.5-10.5)
[2020-07-26 13:44] LABS: Anion Gap 16 mmol/L (10-20); BUN (Urea Nitrogen) 54 mg/dL (9.8-20.1); Calc. Creatinine Clearance 0 mL/min (70-130); Calcium 9.3 mg/dL (7.8-10.44); Carbon Dioxide 27 mmol/L (22-29); Chloride 103 mmol/L (98-107); Glucose 103 mg/dL (70-105); Potassium 4.6 mmol/L (3.5-5.1); Sodium 141 mmol/L (136-145)
[2020-07-26 20:46] LABS: SARS-CoV-2 PCR by NAA Not Detected (NotDetected)
== END 2020-07-26 12:26 | disposition home or self-care (01) ==
LOC: LABBT 12:25
PROVIDERS: ATTEND Specialist
DX: Z01.818 Encounter for other preprocedural examination (principal); N18.1 Chronic kidney disease, stage 1; Z20.822 Contact with and (suspected) exposure to COVID-19
CPT/HCPCS: 80048; 85025; 93005; 93010; U0003; U0005

== ENCOUNTER 2020-07-31 10:29 | Day surgery (SDC) | payer BC ==
[2020-07-30 10:47] VITALS: BMI 20.7
[2020-07-31] MEDS ORDERED: Propofol 500 MG/50 ML VIAL ONE (13:52)
[2020-07-31] MEDS ORDERED: Fentanyl 100 MCG/2 ML VIAL ONE (13:52)
[2020-07-31] MEDS ORDERED: XYLOCAINE 2%-EPI 1:100,000 20 ML VIAL ONE (13:58)
[2020-07-31] MEDS ORDERED: Bupivacaine 0.25% HCL 30 ML VIAL ONE (13:58)
[2020-07-31] MEDS ORDERED: Morphine 2 MG/ML VIAL ONE (14:56)
== END 2020-07-31 15:45 | disposition home or self-care (01) ==
LOC: SDC 10:29
PROVIDERS: ATTEND Specialist
PROC: 0WPG03Z Removal of Infusion Device from Peritoneal Cavity, Open Approach (ICD-10-PCS; principal; 2020-07-31)
DX: Z49.02 Encounter for fitting and adjustment of peritoneal dialysis catheter (principal); I13.0 Hypertensive heart and chronic kidney disease with heart failure and stage 1 through stage 4 chronic kidney disease, or unspecified chronic kidney disease; E11.22 Type 2 diabetes mellitus with diabetic chronic kidney disease; N18.1 Chronic kidney disease, stage 1; I50.9 Heart failure, unspecified; M19.90 Unspecified osteoarthritis, unspecified site; Z87.891 Personal history of nicotine dependence; Z79.84 Long term (current) use of oral hypoglycemic drugs; Z79.899 Other long term (current) drug therapy; Z88.1 Allergy status to other antibiotic agents; Z88.5 Allergy status to narcotic agent; Z88.8 Allergy status to other drugs, medicaments and biological substances; Z95.810 Presence of automatic (implantable) cardiac defibrillator
CPT/HCPCS: J0690; J2270; J2704; J3010; S0020

== ENCOUNTER 2021-04-16 18:53 | Inpatient (IN) | payer BC, MEDICARE ==
[2021-04-16 19:17] LABS: #Eosinphils 0.2 thou/uL (0.0-0.7); #Lymphocytes 1.6 thou/uL (1.20-3.40); #Monocytes 0.7 thou/uL (0.11-0.59); #Neutrophils 5.6 thou/uL (1.40-6.50); %Basophils 0.5 % (0.0-1.0); %Eosinophils 2.2 % (0.0-10.0); %Lymphocytes 19.4 % (21.0-51.0); %Monocytes 8.7 % (0.0-10.0); %Neutrophils 69.2 % (42.0-75.0); Hemoglobin 13.9 g/dL (12.0-16.0); Mean Corpuscular HGB CONC 34.8 g/dL (32.0-36.0); Mean Corpuscular Hemoglobin 34.7 pg (27.0-31.0); Mean Corpuscular Volume 99.6 fL (78.0-98.0); Mean Platelet Volume 8.8 fL (7.4-10.4); Platelet Count 178 thou/uL (130-400); RBC Distribution Width 11.3 % (11.5-14.5); Red Blood Cell (RBC) Count 4.02 mill/uL (4.20-5.40); White Blood Cell (WBC) Count 8.1 thou/uL (4.8-10.8)
[2021-04-16 19:47] LABS: ALT (SGPT) 25 U/L (8-55); AST (SGOT) 28 U/L (5-34); Albumin 4.3 g/dL (3.4-4.8); Alkaline Phosphatase 87 U/L (40-110); Anion Gap 15 mmol/L (10-20); BUN (Urea Nitrogen) 53 mg/dL (9.8-20.1); Bilirubin, Total 0.4 mg/dL (0.2-1.2); Carbon Dioxide 24 mmol/L (23-31); Chloride 105 mmol/L (98-107); Globulin 2.6 g/dL (2.4-3.5); Glucose 115 mg/dL (80-115); Potassium 4.6 mmol/L (3.5-5.1); Protein, Total 6.9 g/dL (5.8-8.1); Sodium 139 mmol/L (136-145)
[2021-04-16 20:01] LABS: CKMB 0.9 ng/mL (0-6.6)
[2021-04-16 20:15] LABS: Calc. Creatinine Clearance 0 mL/min (70-130)
[2021-04-16 22:33] LABS: Bilirubin Negative (Negative); Blood, Urine Negative (Negative); Clarity Clear (Clear); Glucose, Urine (Dipstick) Normal (Negative); Ketone, Urine Negative (Negative); Leukocyte 25 Leu/uL (Negative); Nitrite Negative (Negative); Protein, Urine (Dipstick) Negative (Neg-Trace); RBC/HPF 0-3 HPF (0-3); Specific Gravity, Urine 1.011 (1.002-1.036); Squamous Epithelial 0-3 HPF (0-3); Urobilinogen Normal mg/dL (Less than 2)
[2021-04-16 22:44] LABS: Bacteria/HPF 3+ HPF (None Seen)
[2021-04-16 23:12] LABS: Troponin I 0.029 ng/mL (< 0.028)
[2021-04-17 00:38] VITALS: BMI 24.8
[2021-04-17 01:24] LABS: Amphetamine Not Detected (NotDetected); Barbiturates Screen Not Detected (NotDetected); Benzodiazepine Screen Not Detected (NotDetected); Cocaine Metabolite Screen Not Detected (NotDetected); Methadone Not Detected (NotDetected); Methamphetamine Not Detected (NotDetected); Opiate Screen Not Detected (NotDetected); Oxycodone Screen Not Detected (NotDetected); Phencyclidine (PCP) Not Detected (NotDetected); THC/Cannabinoid Screen Not Detected (NotDetected); Tricyclic Screen Not Detected (NotDetected)
[2021-04-17 01:50] LABS: Troponin I 0.026 ng/mL (< 0.028)
[2021-04-17 04:57] LABS: #Eosinphils 0.2 thou/uL (0.0-0.7); #Lymphocytes 1.7 thou/uL (1.20-3.40); #Monocytes 0.5 thou/uL (0.11-0.59); %Basophils 0.7 % (0.0-1.0); %Eosinophils 3.6 % (0.0-10.0); %Lymphocytes 25.7 % (21.0-51.0); %Neutrophils 62.1 % (42.0-75.0); Mean Corpuscular HGB CONC 33.5 g/dL (32.0-36.0); Mean Corpuscular Hemoglobin 33.1 pg (27.0-31.0); Mean Corpuscular Volume 98.7 fL (78.0-98.0); Mean Platelet Volume 8.7 fL (7.4-10.4); Platelet Count 155 thou/uL (130-400); RBC Distribution Width 11.1 % (11.5-14.5); Red Blood Cell (RBC) Count 4.23 mill/uL (4.20-5.40); White Blood Cell (WBC) Count 6.5 thou/uL (4.8-10.8)
[2021-04-17 05:21] LABS: ALT (SGPT) 23 U/L (8-55); AST (SGOT) 24 U/L (5-34); Albumin 3.9 g/dL (3.4-4.8); Alkaline Phosphatase 80 U/L (40-110); Anion Gap 13 mmol/L (10-20); BUN (Urea Nitrogen) 48 mg/dL (9.8-20.1); Bilirubin, Total 0.6 mg/dL (0.2-1.2); Calc. Creatinine Clearance 41 mL/min (70-130); Calcium 9.2 mg/dL (7.8-10.44); Carbon Dioxide 25 mmol/L (23-31); Chloride 105 mmol/L (98-107); Globulin 2.8 g/dL (2.4-3.5); Glucose 99 mg/dL (80-115); Magnesium 2.2 mg/dL (1.6-2.6); Phosphorus 4.2 mg/dL (2.3-4.7); Potassium 3.9 mmol/L (3.5-5.1); Protein, Total 6.7 g/dL (5.8-8.1); Sodium 139 mmol/L (136-145)
[2021-04-17 08:01] LABS: Ref Lab Test Ordered PETH; Reference Lab Name LABCORP
[2021-04-17] MEDS: Colchicine 0.3 MG TAB PO SCH (08:33)
[2021-04-17] MEDS: busPIRone HCl 10 MG TAB PO SCH ×2 (08:33→20:24)
[2021-04-17] MEDS: Furosemide 20 MG TAB PO SCH ×2 (08:33→20:23)
[2021-04-17] MEDS: Carvedilol 6.25 MG TAB PO SCH ×2 (08:34→20:23)
[2021-04-17] MEDS: DULoxetine 60 MG CAP PO SCH (08:36)
[2021-04-17] MEDS: Ezetimibe 10 MG TAB PO SCH (08:36)
[2021-04-17] MEDS ORDERED: Heparin 5,000 UNITS/ML VIAL SC SCH (09:00)
[2021-04-17] MEDS ORDERED: Enoxaparin Sodium 40 MG/0.4 ML SYRINGE SC SCH (09:00)
[2021-04-17] MEDS ORDERED: Carvedilol 3.125 MG TAB PO SCH (09:00)
[2021-04-17] MEDS: Acetaminophen 500 MG TAB PO PRN (09:03)
[2021-04-17] MEDS ORDERED: Melatonin 3 MG TAB PO PRN (10:03)
[2021-04-17] MEDS ORDERED: Lorazepam 0.5 MG TAB PO SCH (11:30)
[2021-04-17 12:03] LABS: SARS-CoV-2 PCR by NAA Not Detected (NotDetected)
[2021-04-17 14:54] LABS: Troponin I 0.025 ng/mL (< 0.028)
[2021-04-17] MEDS ORDERED: Aspirin 81 mg Enteric Coated Tablet PO SCH (15:00)
[2021-04-17] MEDS: Atorvastatin Calcium 40 MG TAB PO SCH (20:23)
[2021-04-18] MEDS: Acetaminophen 500 MG TAB PO PRN ×2 (03:42→20:18)
[2021-04-18 05:25] LABS: #Eosinphils 0.2 thou/uL (0.0-0.7); #Lymphocytes 1.4 thou/uL (1.20-3.40); #Monocytes 0.6 thou/uL (0.11-0.59); #Neutrophils 3.6 thou/uL (1.40-6.50); %Basophils 0.8 % (0.0-1.0); %Eosinophils 3.6 % (0.0-10.0); %Monocytes 10.2 % (0.0-10.0); %Neutrophils 61.4 % (42.0-75.0); Hemoglobin 13.1 g/dL (12.0-16.0); Mean Corpuscular HGB CONC 33.6 g/dL (32.0-36.0); Mean Corpuscular Hemoglobin 33.1 pg (27.0-31.0); Mean Corpuscular Volume 98.8 fL (78.0-98.0); Mean Platelet Volume 8.6 fL (7.4-10.4); Platelet Count 166 thou/uL (130-400); Red Blood Cell (RBC) Count 3.95 mill/uL (4.20-5.40); White Blood Cell (WBC) Count 5.9 thou/uL (4.8-10.8)
[2021-04-18 05:48] LABS: Anion Gap 12 mmol/L (10-20); BUN (Urea Nitrogen) 54 mg/dL (9.8-20.1); Carbon Dioxide 26 mmol/L (23-31); Chloride 105 mmol/L (98-107); Potassium 4.1 mmol/L (3.5-5.1); Sodium 139 mmol/L (136-145)
[2021-04-18 05:49] LABS: ALT (SGPT) 26 U/L (8-55); AST (SGOT) 24 U/L (5-34); Albumin 3.8 g/dL (3.4-4.8); Alkaline Phosphatase 78 U/L (40-110); Bilirubin, Total 0.5 mg/dL (0.2-1.2); Calc. Creatinine Clearance 31 mL/min (70-130); Calcium 9.1 mg/dL (7.8-10.44); Cardiac Risk 2.2 (Less than 4.5); Cholesterol 145 mg/dl (< 200 Desired); Globulin 2.4 g/dL (2.4-3.5); Glucose 97 mg/dL (80-115); HDL Cholesterol 66 mg/dL (>60 Neg Risk); LDL Cholesterol, Calculated 68 mg/dL; Protein, Total 6.2 g/dL (5.8-8.1); Triglycerides 55 mg/dL (Less than 150)
[2021-04-18] MEDS: Ezetimibe 10 MG TAB PO SCH (08:40)
[2021-04-18] MEDS: Aspirin 81 mg Enteric Coated Tablet PO SCH (08:40)
[2021-04-18] MEDS: busPIRone HCl 10 MG TAB PO SCH ×2 (08:41→20:17)
[2021-04-18] MEDS: DULoxetine 60 MG CAP PO SCH (08:41)
[2021-04-18] MEDS: Furosemide 20 MG TAB PO SCH ×2 (08:41→20:18)
[2021-04-18] MEDS: Carvedilol 6.25 MG TAB PO SCH ×2 (08:42→20:17)
[2021-04-18] MEDS: Colchicine 0.3 MG TAB PO SCH (08:42)
[2021-04-18] MEDS: Enoxaparin Sodium 30 MG/0.3 ML SYRINGE SC SCH (08:43)
[2021-04-18] MEDS ORDERED: FLU VACC QS2021-22(6MOS UP)/PF 60 MCG/0.5 ML SYRINGE IM ONE (09:00)
[2021-04-18] MEDS ORDERED: Prochlorperazine 10 MG/2 ML VIAL IVP SCH (09:15)
[2021-04-18 10:24] LABS: Creatinine, Urine 67.05 mg/dL (47-110)
[2021-04-18 13:22] LABS: Magnesium 2.1 mg/dL (1.6-2.6); Phosphorus 5.1 mg/dL (2.3-4.7)
[2021-04-18] MEDS: Atorvastatin Calcium 40 MG TAB PO SCH (20:18)
[2021-04-19 04:56] LABS: #Basophils 0.1 thou/uL (0.0-0.2); #Eosinphils 0.2 thou/uL (0.0-0.7); #Lymphocytes 1.6 thou/uL (1.20-3.40); #Monocytes 0.6 thou/uL (0.11-0.59); #Neutrophils 3.5 thou/uL (1.40-6.50); %Basophils 1.3 % (0.0-1.0); %Eosinophils 3.8 % (0.0-10.0); %Lymphocytes 26.7 % (21.0-51.0); %Monocytes 10.5 % (0.0-10.0); %Neutrophils 57.7 % (42.0-75.0); Mean Corpuscular HGB CONC 33.3 g/dL (32.0-36.0); Mean Corpuscular Hemoglobin 33.1 pg (27.0-31.0); Mean Corpuscular Volume 99.4 fL (78.0-98.0); Mean Platelet Volume 8.5 fL (7.4-10.4); Platelet Count 173 thou/uL (130-400); RBC Distribution Width 11.2 % (11.5-14.5); Red Blood Cell (RBC) Count 4.24 mill/uL (4.20-5.40); White Blood Cell (WBC) Count 6.1 thou/uL (4.8-10.8)
[2021-04-19 05:16] LABS: ALT (SGPT) 21 U/L (8-55); AST (SGOT) 21 U/L (5-34); Albumin 4.1 g/dL (3.4-4.8); Alkaline Phosphatase 81 U/L (40-110); Anion Gap 14 mmol/L (10-20); BUN (Urea Nitrogen) 47 mg/dL (9.8-20.1); Bilirubin, Total 0.7 mg/dL (0.2-1.2); Calc. Creatinine Clearance 33 mL/min (70-130); Calcium 9.3 mg/dL (7.8-10.44); Carbon Dioxide 25 mmol/L (23-31); Chloride 106 mmol/L (98-107); Globulin 2.5 g/dL (2.4-3.5); Glucose 99 mg/dL (80-115); Potassium 4.1 mmol/L (3.5-5.1); Protein, Total 6.6 g/dL (5.8-8.1); Sodium 141 mmol/L (136-145)
[2021-04-19 08:00] VITALS: BP 101/67; TEMP 98.7
[2021-04-19] MEDS: busPIRone HCl 10 MG TAB PO SCH (08:42)
[2021-04-19] MEDS: Aspirin 81 mg Enteric Coated Tablet PO SCH (08:42)
[2021-04-19] MEDS: Carvedilol 6.25 MG TAB PO SCH (08:42)
[2021-04-19] MEDS: DULoxetine 60 MG CAP PO SCH (08:42)
[2021-04-19] MEDS: Ezetimibe 10 MG TAB PO SCH (08:43)
[2021-04-19] MEDS: Furosemide 20 MG TAB PO SCH (08:43)
[2021-04-19] MEDS: Enoxaparin Sodium 30 MG/0.3 ML SYRINGE SC SCH (08:44)
[2021-04-19] MEDS: Colchicine 0.3 MG TAB PO SCH (08:44)
== END 2021-04-19 11:40 | disposition home or self-care (01) | DRG 291 ==
LOC: ERS 18:53 → NEURO 21:58
PROVIDERS: ADMIT Family Medicine; ATTEND Family Medicine
DX: I13.0 Hypertensive heart and chronic kidney disease with heart failure and stage 1 through stage 4 chronic kidney disease, or unspecified chronic kidney disease (principal); I50.23 Acute on chronic systolic (congestive) heart failure; I47.2 Ventricular tachycardia; Z20.822 Contact with and (suspected) exposure to COVID-19; E11.22 Type 2 diabetes mellitus with diabetic chronic kidney disease; E78.5 Hyperlipidemia, unspecified; F41.9 Anxiety disorder, unspecified; F32.A Depression, unspecified; M10.9 Gout, unspecified; D63.1 Anemia in chronic kidney disease; I42.8 Other cardiomyopathies; N18.32 Chronic kidney disease, stage 3b; G47.33 Obstructive sleep apnea (adult) (pediatric); H81.10 Benign paroxysmal vertigo, unspecified ear; E11.649 Type 2 diabetes mellitus with hypoglycemia without coma; E78.00 Pure hypercholesterolemia, unspecified; F17.200 Nicotine dependence, unspecified, uncomplicated; Z95.810 Presence of automatic (implantable) cardiac defibrillator; Z88.8 Allergy status to other drugs, medicaments and biological substances; Z88.1 Allergy status to other antibiotic agents; Z88.6 Allergy status to analgesic agent; Z79.899 Other long term (current) drug therapy; Z80.3 Family history of malignant neoplasm of breast; Z82.49 Family history of ischemic heart disease and other diseases of the circulatory system; Z63.5 Disruption of family by separation and divorce; Z90.89 Acquired absence of other organs; Z98.51 Tubal ligation status; Z79.82 Long term (current) use of aspirin
CPT/HCPCS: 36415; 70450; 70551; 71045; 80053; 80061; 80306; 80307; 81003; 81015; 82553; 82570; 83036; 83735; 83880; 84100; 84443; 84484; 84540; 85025; 87086; 87804; 90471; 90686; 90732; 93005; 93010; 93306; 93880; 94760; G0008; G0009; J0780; J1650; U0003; U0005

== ENCOUNTER 2022-02-27 07:24 | Inpatient (IN) | payer BC, MEDICARE ==
[2022-02-27 08:05] LABS: #Basophils 0.1 thou/uL (0.0-0.2); #Eosinphils 0.2 thou/uL (0.0-0.7); #Lymphocytes 1.1 thou/uL (1.20-3.40); #Monocytes 0.5 thou/uL (0.11-0.59); #Neutrophils 7.2 thou/uL (1.40-6.50); %Basophils 0.6 % (0.0-1.0); %Monocytes 5.9 % (0.0-10.0); %Neutrophils 79.5 % (42.0-75.0); Hemoglobin 14.4 g/dL (12.0-16.0); Mean Corpuscular HGB CONC 33.8 g/dL (32.0-36.0); Mean Corpuscular Hemoglobin 32.5 pg (27.0-31.0); Mean Corpuscular Volume 96.2 fl (78.0-98.0); Mean Platelet Volume 8.7 fL (7.4-10.4); Platelet Count 183 10x3/uL (130-400); RBC Distribution Width 11.6 % (11.5-14.5); Red Blood Cell (RBC) Count 4.43 mill/uL (4.20-5.40); White Blood Cell (WBC) Count 9.1 10x3/uL (4.8-10.8)
[2022-02-27 08:30] LABS: ALT (SGPT) 14 U/L (8-55); AST (SGOT) 21 U/L (5-34); Albumin 4.3 g/dL (3.4-4.8); Alkaline Phosphatase 94 U/L (40-110); Anion Gap 14 mmol/L (10-20); BUN (Urea Nitrogen) 36 mg/dL (9.8-20.1); Bilirubin, Total 0.7 mg/dL (0.2-1.2); Calc. Creatinine Clearance 0 mL/min (70-130); Calcium 9.8 mg/dL (7.8-10.44); Carbon Dioxide 22 mmol/L (23-31); Chloride 105 mmol/L (98-107); Estimated GFR 26; Globulin 3.1 g/dL (2.4-3.5); Glucose 135 mg/dL (80-115); Potassium 4.1 mmol/L (3.5-5.1); Protein, Total 7.4 g/dL (5.8-8.1); Sodium 137 mmol/L (136-145)
[2022-02-27] MEDS ORDERED: Acetaminophen 500 MG TAB ONE (09:36)
[2022-02-27] MEDS ORDERED: Aspirin Chewable 81 MG TAB ONE (09:36)
[2022-02-27] MEDS ORDERED: Ondansetron PF 4 MG/2 ML Vial ONE (09:36)
[2022-02-27] MEDS ORDERED: Dextrose 5% in Water 1,000 ML IV PRN (10:01)
[2022-02-27] MEDS ORDERED: Dextrose 50% Abboject 50 ML SYRINGE SLOW IVP PRN (10:01)
[2022-02-27] MEDS ORDERED: HumaLOG 300 UNITS/3 ML VIAL SC PRN ×2 (10:03)
[2022-02-27] MEDS ORDERED: Furosemide 20 MG/2 ML VIAL SLOW IVP SCH (11:15)
[2022-02-27] MEDS ORDERED: Heparin 25,000 units/D5W 500 ML IVPB SCH (11:30)
[2022-02-27] MEDS ORDERED: Heparin 10,000 UNITS/ 10 ML VIAL SLOW IVP SCH (11:30)
[2022-02-27 11:35] LABS: Hemoglobin A1c 5.5 % (4.0-6.0)
[2022-02-27 11:49] LABS: Cardiac Risk 2.4 (Less than 4.5)
[2022-02-27 11:52] LABS: Troponin I 0.026 ng/mL (< 0.028)
[2022-02-27] MEDS ORDERED: Furosemide 40 MG/4 ML VIAL ONE (11:59)
[2022-02-27] MEDS ORDERED: Nitroglycerin 0.4 MG TAB 1 EACH ONE ×2 (11:59→13:42)
[2022-02-27] MEDS: Nitroglycerin 0.4 MG TAB (25 Tab Bottle) SL PRN ×2 (12:09→13:45)
[2022-02-27 12:13] LABS: Hemoglobin 14.1 g/dL (12.0-16.0); Platelet Count 191 10x3/uL (130-400)
[2022-02-27] MEDS ORDERED: Acetaminophen 325 MG TAB PO PRN (13:45)
[2022-02-27] MEDS ORDERED: Heparin 25,000 units/D5W 500 ML ONE (14:10)
[2022-02-27 14:45] LABS: Troponin I 0.023 ng/mL (< 0.028)
[2022-02-27] MEDS ORDERED: Heparin 5,000 UNITS/ML VIAL SC SCH (15:00)
[2022-02-27] MEDS ORDERED: Ondansetron ODT 4 MG TAB PO PRN (16:00)
[2022-02-27] MEDS ORDERED: Ondansetron PF 4 MG/2 ML Vial IVP PRN (16:00)
[2022-02-27 16:12] VITALS: BMI 30.8
[2022-02-27] MEDS ORDERED: FLU VACC QS2022-23(6MOS UP)/PF 60 MCG/0.5 ML SYRINGE IM ONE (16:30)
[2022-02-27] MEDS ORDERED: Colchicine 0.6 MG TAB PO SCH (17:45)
[2022-02-27 18:20] LABS: Creatinine, Urine 51.28 mg/dL (47-110)
[2022-02-27] MEDS: Carvedilol 25 MG TAB PO SCH (20:07)
[2022-02-27] MEDS: busPIRone HCl 10 MG TAB PO SCH (20:07)
[2022-02-27] MEDS: Melatonin 3 MG TAB PO SCH (20:34)
[2022-02-27] MEDS ORDERED: Carvedilol 6.25 MG TAB PO SCH (21:00)
[2022-02-28 05:32] LABS: Anion Gap 11 mmol/L (10-20); BUN (Urea Nitrogen) 45 mg/dL (9.8-20.1); Calc. Creatinine Clearance 35 mL/min (70-130); Calcium 8.8 mg/dL (7.8-10.44); Carbon Dioxide 23 mmol/L (23-31); Chloride 111 mmol/L (98-107); Estimated GFR 24; Glucose 109 mg/dL (80-115); Potassium 4.2 mmol/L (3.5-5.1); Sodium 141 mmol/L (136-145)
[2022-02-28] MEDS: Carvedilol 25 MG TAB PO SCH ×2 (10:12→21:59)
[2022-02-28] MEDS: busPIRone HCl 10 MG TAB PO SCH ×2 (10:12→21:58)
[2022-02-28] MEDS: Atorvastatin Calcium 40 MG TAB PO SCH (10:12)
[2022-02-28] MEDS: Furosemide 20 MG TAB PO SCH ×2 (10:13→13:41)
[2022-02-28] MEDS: Colchicine 0.3 MG TAB PO SCH ×2 (10:13→21:59)
[2022-02-28] MEDS: Empagliflozin 25 MG TAB PO SCH (10:13)
[2022-02-28] MEDS: DULoxetine 60 MG CAP PO SCH (10:13)
[2022-02-28] MEDS: Ezetimibe 10 MG TAB PO SCH (10:13)
[2022-02-28] MEDS: Aspirin 81 mg Enteric Coated Tablet PO SCH (10:13)
[2022-02-28] MEDS: Melatonin 3 MG TAB PO SCH (21:59)
[2022-03-01 05:03] LABS: #Basophils 0.1 thou/uL (0.0-0.2); #Eosinphils 0.3 thou/uL (0.0-0.7); #Lymphocytes 1.8 thou/uL (1.20-3.40); #Monocytes 0.5 thou/uL (0.11-0.59); #Neutrophils 4.3 thou/uL (1.40-6.50); %Eosinophils 3.9 % (0.0-10.0); %Lymphocytes 25.7 % (21.0-51.0); %Monocytes 7.3 % (0.0-10.0); %Neutrophils 62.1 % (42.0-75.0); Hemoglobin 13.5 g/dL (12.0-16.0); Mean Corpuscular HGB CONC 35.1 g/dL (32.0-36.0); Mean Corpuscular Hemoglobin 33.6 pg (27.0-31.0); Mean Corpuscular Volume 95.9 fl (78.0-98.0); Platelet Count 168 10x3/uL (130-400); RBC Distribution Width 11.6 % (11.5-14.5); White Blood Cell (WBC) Count 6.9 10x3/uL (4.8-10.8)
[2022-03-01 05:21] LABS: Anion Gap 13 mmol/L (10-20); BUN (Urea Nitrogen) 44 mg/dL (9.8-20.1); Calc. Creatinine Clearance 36 mL/min (70-130); Calcium 9.1 mg/dL (7.8-10.44); Carbon Dioxide 25 mmol/L (23-31); Chloride 106 mmol/L (98-107); Estimated GFR 26; Glucose 99 mg/dL (80-115); Sodium 140 mmol/L (136-145)
[2022-03-01] MEDS: Empagliflozin 25 MG TAB PO SCH (09:54)
[2022-03-01] MEDS: DULoxetine 60 MG CAP PO SCH (09:54)
[2022-03-01] MEDS: Aspirin 81 mg Enteric Coated Tablet PO SCH (09:54)
[2022-03-01] MEDS: Colchicine 0.3 MG TAB PO SCH (09:54)
[2022-03-01] MEDS: Furosemide 20 MG TAB PO SCH ×2 (09:55→14:21)
[2022-03-01] MEDS: Ezetimibe 10 MG TAB PO SCH (09:55)
[2022-03-01] MEDS: busPIRone HCl 10 MG TAB PO SCH (09:55)
[2022-03-01] MEDS: Carvedilol 25 MG TAB PO SCH (09:55)
[2022-03-01] MEDS: Atorvastatin Calcium 40 MG TAB PO SCH (09:55)
[2022-03-01 16:42] VITALS: BP 103/57; TEMP 97.5
== END 2022-03-01 18:47 | disposition home or self-care (01) | DRG 315 ==
LOC: ERS 07:24 → ERHOLD 09:35 → OBSVTOIN 11:51 → 2NO 15:13
PROVIDERS: ADMIT Family Medicine; ATTEND Family Medicine
DX: I31.9 Disease of pericardium, unspecified (principal); Z20.822 Contact with and (suspected) exposure to COVID-19; I13.0 Hypertensive heart and chronic kidney disease with heart failure and stage 1 through stage 4 chronic kidney disease, or unspecified chronic kidney disease; N18.4 Chronic kidney disease, stage 4 (severe); I50.22 Chronic systolic (congestive) heart failure; I42.8 Other cardiomyopathies; E78.5 Hyperlipidemia, unspecified; E11.22 Type 2 diabetes mellitus with diabetic chronic kidney disease; F41.1 Generalized anxiety disorder; F32.9 Major depressive disorder, single episode, unspecified; I08.1 Rheumatic disorders of both mitral and tricuspid valves; Z95.810 Presence of automatic (implantable) cardiac defibrillator; Z79.899 Other long term (current) drug therapy; Z88.1 Allergy status to other antibiotic agents; Z88.5 Allergy status to narcotic agent; Z88.8 Allergy status to other drugs, medicaments and biological substances; Z90.89 Acquired absence of other organs; Z98.51 Tubal ligation status; Z98.890 Other specified postprocedural states; Z80.3 Family history of malignant neoplasm of breast; Z87.891 Personal history of nicotine dependence
CPT/HCPCS: 36415; 36416; 71045; 80048; 80053; 80061; 82570; 83036; 83880; 84443; 84484; 84540; 85025; 85730; 93005; 93306; 94760; 96374; G0378; J1644; J1815; J1940; J2405; U0003; U0005

== ENCOUNTER 2022-05-20 17:10 | Inpatient (IN) | payer BC, MEDICARE ==
[2022-05-20 17:55] LABS: #Basophils 0.1 thou/uL (0.0-0.2); #Eosinphils 0.3 thou/uL (0.0-0.7); #Lymphocytes 1.7 thou/uL (1.20-3.40); #Monocytes 0.8 thou/uL (0.11-0.59); #Neutrophils 7.1 thou/uL (1.40-6.50); %Basophils 0.7 % (0.0-1.0); %Eosinophils 2.9 % (0.0-10.0); %Lymphocytes 17.4 % (21.0-51.0); %Monocytes 7.7 % (0.0-10.0); %Neutrophils 71.2 % (42.0-75.0); Hemoglobin 13.2 g/dL (12.0-16.0); Mean Corpuscular HGB CONC 33.8 g/dL (32.0-36.0); Mean Corpuscular Hemoglobin 32.3 pg (27.0-31.0); Mean Corpuscular Volume 95.8 fl (78.0-98.0); Mean Platelet Volume 9.2 fL (7.4-10.4); Platelet Count 183 10x3/uL (130-400); RBC Distribution Width 12.1 % (11.5-14.5); Red Blood Cell (RBC) Count 4.09 mill/uL (4.20-5.40); White Blood Cell (WBC) Count 9.9 10x3/uL (4.8-10.8)
[2022-05-20 18:23] LABS: ALT (SGPT) 13 U/L (8-55); AST (SGOT) 22 U/L (5-34); Albumin 4.2 g/dL (3.4-4.8); Alkaline Phosphatase 93 U/L (40-110); Anion Gap 16 mmol/L (10-20); BUN (Urea Nitrogen) 45 mg/dL (9.8-20.1); Bilirubin, Total 0.3 mg/dL (0.2-1.2); Calc. Creatinine Clearance 0 mL/min (70-130); Calcium 9.3 mg/dL (7.8-10.44); Carbon Dioxide 21 mmol/L (23-31); Chloride 107 mmol/L (98-107); Estimated GFR 24; Globulin 3.1 g/dL (2.4-3.5); Glucose 93 mg/dL (80-115); Potassium 4.5 mmol/L (3.5-5.1); Protein, Total 7.3 g/dL (5.8-8.1); Sodium 139 mmol/L (136-145)
[2022-05-20] MEDS ORDERED: Nitroglycerin 2% Ointment 1 INCH/1 GM Packet ONE ×2 (19:43→19:44)
[2022-05-20 19:57] LABS: Magnesium 2.3 mg/dL (1.6-2.6)
[2022-05-20] MEDS ORDERED: Heparin 5,000 UNITS/ML VIAL SC SCH (21:00)
[2022-05-20] MEDS ORDERED: Furosemide 20 MG/2 ML VIAL SLOW IVP SCH (21:30)
[2022-05-20 21:47] LABS: Troponin I 0.017 ng/mL (< 0.028)
[2022-05-20 22:28] VITALS: BMI 30.7
[2022-05-20] MEDS ORDERED: Nitroglycerin 0.4 MG TAB (25 Tab Bottle) SL PRN (23:36)
[2022-05-20] MEDS ORDERED: busPIRone HCl 10 MG TAB PO SCH (23:45)
[2022-05-20] MEDS: Melatonin 3 MG TAB PO PRN (23:46)
[2022-05-21 00:11] LABS: Troponin I 0.018 ng/mL (< 0.028)
[2022-05-21 05:36] LABS: Anion Gap 12 mmol/L (10-20); BUN (Urea Nitrogen) 43 mg/dL (9.8-20.1); Calc. Creatinine Clearance 40 mL/min (70-130); Calcium 8.8 mg/dL (7.8-10.44); Carbon Dioxide 25 mmol/L (23-31); Chloride 108 mmol/L (98-107); Estimated GFR 29; Glucose 114 mg/dL (80-115); Magnesium 2.2 mg/dL (1.6-2.6); Potassium 4.1 mmol/L (3.5-5.1); Sodium 141 mmol/L (136-145)
[2022-05-21] MEDS ORDERED: Furosemide 20 MG TAB PO SCH (09:00)
[2022-05-21] MEDS: Carvedilol 25 MG TAB PO SCH ×2 (09:15→20:14)
[2022-05-21] MEDS: Atorvastatin Calcium 40 MG TAB PO SCH (09:16)
[2022-05-21] MEDS: DULoxetine 60 MG CAP PO SCH (09:16)
[2022-05-21] MEDS: busPIRone HCl 10 MG TAB PO SCH ×2 (09:17→20:13)
[2022-05-21] MEDS: Acetaminophen 325 MG TAB PO PRN (09:17)
[2022-05-21] MEDS: Empagliflozin 25 MG TAB PO SCH (09:32)
[2022-05-21] MEDS: Furosemide 20 MG TAB PO SCH ×2 (09:32→13:49)
[2022-05-22 05:26] LABS: Anion Gap 12 mmol/L (10-20); BUN (Urea Nitrogen) 38 mg/dL (9.8-20.1); Calc. Creatinine Clearance 40 mL/min (70-130); Calcium 9.1 mg/dL (7.8-10.44); Carbon Dioxide 26 mmol/L (23-31); Chloride 108 mmol/L (98-107); Estimated GFR 29; Glucose 109 mg/dL (80-115); Magnesium 2.3 mg/dL (1.6-2.6); Potassium 4.1 mmol/L (3.5-5.1); Sodium 142 mmol/L (136-145)
[2022-05-22] MEDS: Atorvastatin Calcium 40 MG TAB PO SCH (09:14)
[2022-05-22] MEDS: Furosemide 20 MG TAB PO SCH ×2 (09:15→14:24)
[2022-05-22] MEDS: Carvedilol 25 MG TAB PO SCH ×2 (09:15→20:49)
[2022-05-22] MEDS: busPIRone HCl 10 MG TAB PO SCH ×2 (09:15→20:50)
[2022-05-22] MEDS: Empagliflozin 25 MG TAB PO SCH (09:15)
[2022-05-22] MEDS: DULoxetine 60 MG CAP PO SCH (09:15)
[2022-05-22] MEDS ORDERED: Colchicine 0.6 MG TAB PO SCH (11:45)
[2022-05-22] MEDS: Acetaminophen 325 MG TAB PO PRN (17:45)
[2022-05-22] MEDS: Melatonin 3 MG TAB PO PRN (20:49)
[2022-05-22] MEDS: Colchicine 0.6 MG TAB PO SCH (20:49)
[2022-05-23 06:17] LABS: Anion Gap 12 mmol/L (10-20); BUN (Urea Nitrogen) 35 mg/dL (9.8-20.1); Calc. Creatinine Clearance 40 mL/min (70-130); Calcium 9.6 mg/dL (7.8-10.44); Carbon Dioxide 27 mmol/L (23-31); Chloride 105 mmol/L (98-107); Estimated GFR 29; Glucose 120 mg/dL (80-115); Magnesium 2.6 mg/dL (1.6-2.6); Potassium 4.3 mmol/L (3.5-5.1); Sodium 140 mmol/L (136-145)
[2022-05-23 07:20] LABS: Troponin I 0.016 ng/mL (< 0.028)
[2022-05-23] MEDS: Colchicine 0.6 MG TAB PO SCH (08:53)
[2022-05-23] MEDS: DULoxetine 60 MG CAP PO SCH (08:53)
[2022-05-23] MEDS: busPIRone HCl 10 MG TAB PO SCH (08:53)
[2022-05-23] MEDS: Atorvastatin Calcium 40 MG TAB PO SCH (08:54)
[2022-05-23] MEDS: Carvedilol 25 MG TAB PO SCH (08:54)
[2022-05-23] MEDS: Empagliflozin 25 MG TAB PO SCH (08:55)
[2022-05-23] MEDS: Furosemide 20 MG TAB PO SCH ×2 (08:55→14:31)
[2022-05-23 09:00] LABS: Phosphorus 4.2 mg/dL (2.3-4.7)
[2022-05-23 12:48] VITALS: BP 135/70; TEMP 97.4
== END 2022-05-23 17:08 | disposition home or self-care (01) | DRG 314 ==
LOC: ERS 17:10 → 2SW 19:28 → OBSVTOIN 05-22 13:57
PROVIDERS: ADMIT Family Medicine; ATTEND Family Medicine
DX: I31.9 Disease of pericardium, unspecified (principal); I50.23 Acute on chronic systolic (congestive) heart failure; I13.0 Hypertensive heart and chronic kidney disease with heart failure and stage 1 through stage 4 chronic kidney disease, or unspecified chronic kidney disease; I42.8 Other cardiomyopathies; N17.9 Acute kidney failure, unspecified; N18.4 Chronic kidney disease, stage 4 (severe); E11.22 Type 2 diabetes mellitus with diabetic chronic kidney disease; E78.5 Hyperlipidemia, unspecified; I44.7 Left bundle-branch block, unspecified; I31.39 Other pericardial effusion (noninflammatory); I34.0 Nonrheumatic mitral (valve) insufficiency; Z88.1 Allergy status to other antibiotic agents; Z88.5 Allergy status to narcotic agent; Z88.8 Allergy status to other drugs, medicaments and biological substances; Z79.899 Other long term (current) drug therapy; Z95.810 Presence of automatic (implantable) cardiac defibrillator; Z90.89 Acquired absence of other organs; Z82.49 Family history of ischemic heart disease and other diseases of the circulatory system; Z87.891 Personal history of nicotine dependence
CPT/HCPCS: 36415; 71045; 80048; 80053; 83735; 83880; 84100; 84484; 85025; 86140; 93005; 93010; 93306; 96372; 96374; G0378; J1644; J1650; J1940

== ENCOUNTER 2022-12-15 12:39 | Outpatient (CLI) | payer BC | END 2022-12-15 12:40 | disposition home or self-care (01) | LOC: BICRAD 12:39 | PROVIDERS: ATTEND Student in an Organized Health Care Education/Training Program | DX: M54.50 Low back pain, unspecified (principal); M79.605 Pain in left leg; M53.3 Sacrococcygeal disorders, not elsewhere classified; M47.816 Spondylosis without myelopathy or radiculopathy, lumbar region; K59.00 Constipation, unspecified; M16.0 Bilateral primary osteoarthritis of hip; M47.898 Other spondylosis, sacral and sacrococcygeal region | CPT/HCPCS: 72110; 72170; 72220 ==

== ENCOUNTER 2023-01-27 13:28 | Outpatient (CLI) | payer BC, MEDICARE | END 2023-01-27 13:29 | disposition home or self-care (01) | LOC: BICRAD 13:28 | PROVIDERS: ATTEND Student in an Organized Health Care Education/Training Program | DX: M53.3 Sacrococcygeal disorders, not elsewhere classified (principal); W19.XXXA Unspecified fall, initial encounter | CPT/HCPCS: 72220 ==